=== PATIENT | female | born 1955 | race Caucasian/White ===

== ENCOUNTER 2022-08-01 08:45 | Outpatient (CLI) | payer MEDICARE, BC, SELFPAY ==
--- NOTE | 2022-08-01 11:16 | W.ANESCHARGE ---
Anesthesia Charges Start Date/Time Anesthesia Start Date: 08/01/22 Anesthesia Start Time: 10:25 Stop Date/Time Anesthesia Stop Date: 08/01/22 Anesthesia Stop Time: 11:15 Summary Emergency: No
--- NOTE | 2022-08-01 11:21 | W.ANESCHARGE ---
Anesthesia Charges Start Date/Time Anesthesia Start Date: 08/01/22 Anesthesia Start Time: 10:25 Stop Date/Time Anesthesia Stop Date: 08/01/22 Anesthesia Stop Time: 11:15 Summary Emergency: No
== END 2022-08-01 08:46 | disposition home or self-care (01) ==
LOC: OP CLINIC 08:47
PROVIDERS: PCP Internal Medicine; Visit Provider Surgery
DX: Z12.11 Encounter for screening for malignant neoplasm of colon (principal); K64.9 Unspecified hemorrhoids; Z83.71 Family history of colonic polyps
CPT/HCPCS: 00812; 45378; J2704

== ENCOUNTER 2022-08-19 08:57 | Outpatient (CLI) | payer MEDICARE, BC, SELFPAY ==
[2022-08-19 11:56] LABS: Cholesterol* 225 mg/dL (90-199); Glucose* 91 mg/dL (60-115); HDL Cholesterol* 83 mg/dL (>=50); LDL Cholesterol Calculated 125 mg/dL (<100); Triglycerides* 87 mg/dL (40-149)
[2022-08-19 12:12] LABS: Vitamin D 25 Hydroxy* 34 ng/mL (30-80)
== END 2022-08-19 08:58 | disposition home or self-care (01) ==
PROVIDERS: PCP Internal Medicine; Visit Provider Internal Medicine
DX: M85.80 Other specified disorders of bone density and structure, unspecified site (principal); E78.5 Hyperlipidemia, unspecified; E03.9 Hypothyroidism, unspecified
CPT/HCPCS: 80061; 82306; 82947; 84443

== ENCOUNTER 2022-09-11 13:54 | Outpatient (CLI) | payer MEDICARE, BC, SELFPAY ==
--- OUTSIDE RECORDS SUMMARY | 2022-09-11 13:58 | XMS_ITS | Encounter Summary ---
:1955 Author Organization [facility] Address [address] [place] [address] Care Team Providers Name Role Phone Elsewhere, Pcp Primary Care Provider Unavailable Reason for Visit Reason Comments Pre-visit Intake Encounter Details Date Type Department Care Team Description 06/28/2022 Clinical Communication Visit Review in Pr e-visit Intake [place], [place] [address] [place], [place] [id number] Social History Tobacco Use Types Packs/Day Years Used Date Smoking Tobacco: Never Smokeless Tobacco: Never Tobacco Cessation: Counseling Given: Not Answered Alcohol Habits Answer Date Recorded How often do you have a drink containing alcohol? 2-4 times a month 06/29/2022 How many drinks containing alcohol do you have on a 1 or 2 06/29/2022 typical day when you are drinking? How often do you have six or more drinks on one Never 06/29/2022 occasion? Social Isolation Answer Date Recorded In a typical week, how many times do you More than three abby es a week 06/29/2022 talk on the phone with family, friends, or neighbors? How often do you get together with friends Twice a week 06/29/2022 or relatives? How often do you attend latter day or More than 4 times per year 06/29/2022 catholic services? Do you belong to any clubs or Yes 06/29/2022 organizations such as latter day groups, unions, fraternal or athletic groups, or school groups? How often do you attend meetings of the More than 4 times pe r year 06/29/2022 clubs or organizations you belong to? Are you now , , , 06/29/2022 , never or living with a partner? Physical Activity Answer Date Recorded On average, how many days per week do you engage in moderate to 3 days 06/29/2022 strenuous exercise (like walking fast, running, jogging, dancing, swimming, biking, or other activities that cause a light or heavy sweat)? On average, how many minutes do you engage in exercise at is 30 min 06/29/2022 level? Stress Answer Date Recorded Do you feel stress - tense, restless, nervous, or anxious, N ot at all 06/29/2022 or unable to sleep at night because your mind is troubled all the time - these days? Financial Resource Strain Answer Date Recorded How hard is it for you to pay for the very basics like Not h yasmine at all 06/29/2022 food, housing, medical care, and heating? Intimate Partner Violence Answer Date Recorded Within the last year, have you been afraid of your partner o r No 06/29/2022 ex-partner? Within the last year, have you been humiliated or emotionall y No 06/29/2022 abused in other ways by your partner or ex-partner? Within the last year, have you been kicked, hit, slapped, or No 06/29/2022 otherwise physically hurt by your partner or ex-partner? Within the last year, have you been raped or forced to have any No 06/29/2022 kind of sexual activity by your partner or ex-partner? Food Insecurity Answer Date Recorded Within the past 12 months, you worried that your food would Never true 06/29/2022 run out before you got money to buy more. Within the past 12 months, the food you bought just didn't N ever true 06/29/2022 last and you didn't have money to get more. Transportation Needs Answer Date Recorded In the past 12 months, has lack of transportation kept you f rom No 06/29/2022 medical appointments or from getting medications? In the past 12 months, has lack of transportation kept you f rom No 06/29/2022 meetings, work, or getting things needed for daily living? Housing Stability Answer Date Recorded In the last 12 months, was there a time when you were not ab le No 06/29/2022 to pay the mortgage or rent on time? In the last 12 months, how many places have you lived? 1 06/29/2022 In the last 12 months, was there a time when you did not hav e a No 06/29/[address] or slept in a detention (including now)? Sex Assigned at Date Recorded Female 06/29/2022 11:48 AM CDT documented as of this encounter Plan of Treatment Not on filedocumented as of this encounter Visit Diagnoses Not on filedocumented in this encounter Care Teams Card Reader Relationship Specialty Start Date End Date Elsewhere, Pcp PCP - General Internal Medicine 06/28/22 documented as of this encounter
--- OUTSIDE RECORDS SUMMARY | 2022-09-11 13:58 | XMS_ITS | Encounter Summary ---
:1955 Author Organization [facility] Address [address] [place] [address] Care Team Providers Name Role Phone Elsewhere, Pcp Primary Care Provider Unavailable Encounter Details Date Type Department Care Team Description 07/03/2022 Orders Only Department [place] Kwame, M.S. [address] [facility] [address] [place] [address] [place], [place] [phone] (Wo rk) Social History Tobacco Use Types Packs/Day Years Used Date Smoking Tobacco: Never Smokeless Tobacco: Never Alcohol Habits Answer Date Recorded How often [...] or relatives? How often do you attend latter-day or More than 4 times per year 06/29/2022 sabianism services? Do you belong to any clubs or Yes 06/29/2022 organizations such as latter-day groups, unions, fraternal or athletic groups, or [...] minutes do you engage in exercise at th is 30 min 06/29/2022 level? Stress Answer [...] place to sleep or slept in a penitentiary (including now)? Education Answer Date Recorded What is the highest level of school Master's degree (e.g., Danica Candelario, , 06/29/2022 you have completed or the highest Renetta, Loli, VALVE AND REGULATOR REPAIRER, TICO) degree you have received? Sex Assigned at Date Recorded Female 06/29/2022 11:48 AM CDT documented as of this encounter Plan of Treatment Not on filedocumented as of this encounter Visit Diagnoses Not on filedocumented in this encounter Care Teams Child Development Instructor Relationship Specialty Start Date End Date Elsewhere, Pcp PCP - General Internal Medicine 06/28/22 documented as of this encounter
--- OUTSIDE RECORDS SUMMARY | 2022-09-11 13:58 | XMS_ITS | Encounter Summary ---
:1955 Author Organization [facility] Address [address] [place] [address] Care Team Providers Name Role Phone Elsewhere, Pcp Primary Care Provider Unavailable Encounter Details Date Type Department Care Team Description 07/03/2022 Ancillary Procedure Department of Dermatology Social History Tobacco Use Types Packs/Day Years [...] or relatives? How often do you attend buddhist or More than 4 times per year 06/29/2022 mormon services? Do you belong to any clubs or Yes 06/29/2022 organizations such as buddhist groups, unions, fraternal or athletic groups, or [...] place to sleep or slept in a custodial (including now)? Education Answer Date Recorded What is the highest level of school Master's degree (e.g., M A, MS, 06/29/2022 you have completed or the highest Renetta, MEd, EXPEDITIONARY FORCE COMBAT SKILLS, TICO) degree you have received? Sex Assigned at Date Recorded Female 06/29/2022 11:48 AM CDT documented as of this encounter Plan of Treatment Not on filedocumented as of this encounter Procedures Procedure Name Priority Date/Time Associated Comments Diagnosis DERMATOLOGY IMAGE Routine 07/03/2022 11:28 Result s for this EXAM AM CDT procedure are i n the results section. documented in this encounter Results Back, left 49 [id number] 229-Dermatology Image Exam (07/03/2022 11:28 AM CDT) Specimen (Source) Anatomical Collection Method Collection Time Re ceived Time Location / / Volume Laterality 07/03/2022 11:26 AM CDT Narrative IIMS - 07/03/2022 11:28 AM CDT This order has been created and auto-finalized to support the import of images acquired without order. The clini meghna documentation to support these images can be found on the encounter suzy t produced images. Provider Not In System IMG NON RAD IMAGING PROCEDUR ES Performing Organization Address City/State/ZIP Code Phon e Number IIMS IIMS NA documented in this encounter Visit Diagnoses Not on filedocumented in this encounter Care Teams Tankage Grinder Operator Relationship Specialty Start Date End Date Elsewhere, Pcp PCP - General Internal Medicine 06/28/22 documented as of this encounter
--- OUTSIDE RECORDS SUMMARY | 2022-09-11 13:58 | XMS_ITS | Encounter Summary ---
:1955 Author Organization [facility] Address [address] [place] [address] Care Team Providers Name Role Phone Unavailable Primary Care Provider Unavailable Encounter Details Date Type Department Care Team Description 06/26/2009 Hospital Encounter HX [facility] Cliff Padilla M.D. [address] [place], [place] [phone] (Wo rk) Social History Tobacco Use Types Packs/Day Years Used Date Smoking Tobacco: Never Assessed Alcohol Habits Answer Date Recorded How often [...] or relatives? How often do you attend religion or More than 4 times per year 06/29/2022 confucianism services? Do you belong to any clubs or Yes 06/29/2022 organizations such as religion groups, unions, fraternal or athletic groups, or [...] or slept in a custodial (including now)? Sex Assigned at Date Recorded Female 06/29/2022 11:48 AM CDT documented as of this encounter Plan of Treatment Not on filedocumented as of this encounter Visit Diagnoses Not on filedocumented in this encounter
--- OUTSIDE RECORDS SUMMARY | 2022-09-11 13:58 | XMS_ITS | Encounter Summary ---
:1955 Author Organization [facility] Address [address] [place] [address] Care Team Providers Name Role Phone Unavailable Primary Care Provider Unavailable Encounter Details Date Type Department Care Team Description 01/07/2022 [facility] M[facility] [address] [facility] [address] [place] [address] [place] [address] [phone] (Wo rk) Social History Tobacco Use Types [...] or relatives? How often do you attend temple or More than 4 times per year 06/29/2022 zoroastrian services? Do you belong to any clubs or Yes 06/29/2022 organizations such as temple groups, unions, fraternal or athletic groups, or [...] place to sleep or slept in a senior living (including now)? Sex Assigned at Date Recorded Female 06/29/2022 11:48 AM CDT documented as of this encounter Plan of Treatment Not on filedocumented as of this encounter Visit Diagnoses Not on filedocumented in this encounter
--- OUTSIDE RECORDS SUMMARY | 2022-09-11 13:58 | XMS_ITS | Clinical Summary ---
:1955 Author Organization [facility] Address [address] [place] [address] Care Team Providers Name Role Phone Elsewhere, Pcp Primary Care Provider Unavailable Source Comments Patient records contain information from all sites at [facility]. For routine questions regarding patient records, call [phone] during business hours, M-F 8:00 AM - 5:00 PM Central Time. Record requests for emergency care only can be directed to [phone] at any time.[facility] Allergies No known active allergies Medications Medication Sig Dispensed Refills Start Date End Date Status simvastatin (ZOCOR) Take 10 mg by mouth 0 04/30/2022 Active 10 mg tablet at bedtime. levothyroxine Take 100 mcg by 0 04/30/2022 Active (SYNTHROID, mouth daily. LEVOTHROID) 100 mcg tablet estradioL (VAGIFEM) INSERT ONE TABLET 0 04/30/2022 Active 10 mcg vaginal tablet VAGINALLY TWICE A WEEK erythromycin See Admin 0 06/11/2022 Active (ROMYCIN) 5 mg/gram Instructions. For (0.5 %) ophthalmic eyes. ointment buPROPion XL Take 300 mg by 0 04/30/2022 A ctive (WELLBUTRIN XL) 300 mouth daily. mg 24 hr tablet cholecalciferol, Take 25 mcg by 0 Active vitamin D3, mouth daily. (cholecalciferol) 25 Calcium and Vit D mcg (1,000 Unit) tablet tretinoin (RETIN-A) Apply 1 application 45 g 3 07/03/2022 Active 0.05 % topically at creamIndications: bedtime. Apply to Milia face every other night followed by moisturizer x 2 weeks then increase to nightly Encounters Date Type Specialty Care Team Description 07/09/2022 Clinical Pharmacy [facility] Prior Communication I. Authorization (PA DENIED - TRETIN OIN CREAM) 07/03/2022 Ancillary Procedure 07/03/2022 Office Visit Dermatology Veronica Bonner (Primary Dx); Lotus Pearson, Tumor Skin Unce bello Garay; Kwame, M.S. Keratosis Sebor rheic Inflamed 07/03/2022 Orders Only Dermatology Lotus Bonner M.D., M.S. 06/28/2022 Clinical Admitting/Central Pre-visit Intake Communication Scheduling from Last 3 Months Immunizations Name Administration Dates Next Due HepA Adult 01/03/2006 IPV 01/03/2006 Influenza, Unspecified 08/15/2004 Social History Tobacco Use Types Packs/Day Years [...] or relatives? How often do you attend yarsanism or More than 4 times per year 06/29/2022 latter-day services? Do you belong to any clubs or Yes 06/29/2022 organizations such as yarsanism groups, unions, fraternal or athletic groups, or [...] place to sleep or slept in a snf (including now)? Education Answer Date Recorded What is the highest level of school Master's degree (e.g., Danica Candelario MS, 06/29/2022 you have completed or the highest Renetta, MEd, SERVICE PROVIDER, TICO) degree you have received? Sex Assigned at Date Recorded Female 06/29/2022 11:48 AM CDT Plan of Treatment Health Maintenance Due Date Last Done Comments Bone Density Scan (Osteoporosis 1955 Screen) CT Colonography 1955 Cologuard 1955 Colonoscopy 1955 Colorectal Cancer Screening 1955 FIT 1955 Fasting Glucose for Diabetes 1955 Screening Hepatitis C Screening 1955 Mammogram 1955 Thyroid Stimulating Hormone (TSH) 1955 test for thyroid function Depression Screening (Annual 11/03/2021 PHQ-2) Fall Risk Screen (Annual) 11/03/2021 DTaP,Tdap,and Td Vaccines (2 - Td 11/20/2022 11/20/2012 or Tdap) Cervical Cancer Screening Discontinued 01/24/2021 Zoster Vaccines Completed 08/14/2021, 05/16/2021, 05/12/2013 Pneumococcal vaccine (65+ years) Completed 06/29/2022, COVID-19 Vaccine Completed 07/09/2022, 03/03/2022, 09/20/2021, Additional history exists Influenza Vaccine Completed 08/22/2022, 07/21/2021, 07/21/2020, Additional history exists Procedures Procedure Name Priority Date/Time Associated Comments Diagnosis DERMATOLOGY IMAGE EXAM Routine 07/03/2022 11:28 R esults for this AM CDT procedure are i n the results section. DERMATOPATHOLOGY Routine 07/03/2022 11:24 Results for this AM CDT procedure are i n the results section. from Last 3 Months Results Back, left 49 225 [id number] 229-Dermatology [...] Code Phon e Number IIMS IIMS NA Dermatopathology (07/03/2022 11:24 AM CDT) Component Value Ref Test Analysis Performed Pathologis t Range Method Time At Signature 07/10/2022 [facility] 2:44 PM CDT Participated in Gregorio Mars, 07/10/2022 [facility] the Kwame-Pathology 2:44 PM CDT Interpretation Fellow Report Gauir Yates 07/10/2022 [facility] electronically Kwame Martinez 2:44 PM CDT signed by Gross Description Received in formalin labeled with the patient's n binu, 07/10/2022 [facility] medical record number, and left lower paraspinal back is 2:44 PM CDT a 1.5 x 1.4 x 0.1 cm pale-escamilla, previously inked blue skin shave biopsy. ??There is a 0.8 x 0.5 x 0.2 cm pale [id number], verrucoid, raised, firm lesion with well-circumscribed borders eccentrically located on the skin surface. ??The specimen is serially sectioned submitted entirely in cassette A1. ??Grossed by JMARITO. Interpretation FINAL DIAGNOSIS 07/10/2022 PDR A. ??Left lower paraspinal back, Skin shave biopsy: 2:44 PM CDT Inflamed verrucal keratosis Specimen (Source) Anatomical Collection Method Collection Time Re ceived Time Location / / Volume Laterality Skin (Left lower 07/03/2022 11:24 paraspinal back) AM CDT Narrative This result has an attachment that is no t available. Lotus Bonner M.D., M.S. LAB PATH DERM ORDERABLES Performing Organization Address City/State/ZIP Code Phon e Number [facility] - [address] [place], [place] [address] [place] [address] Laboratories-[facility] [address] from Last 3 Months Insurance Payer Benefit Plan Subscriber ID Effective Phone Address Typ e / Group Dates MEDICARE MEDICARE A [id number] 2021-Pres [phone] [place] [address] BLUE CROSS BCBS JENA [id number] 2021-Pres [phone] [address] X Cost Share BLUE SHIELD BLUE COST ent [id number] [place] [address] Care Teams Quill Winder Relationship Specialty Start Date End Date Elsewhere, Pcp PCP - General Internal Medicine 06/28/22
--- OUTSIDE RECORDS SUMMARY | 2022-09-11 13:58 | XMS_ITS | Encounter Summary ---
:1955 Author Organization [facility] Address [address] [place] [address] Care Team Providers Name Role Phone Unavailable Primary Care Provider Unavailable Reason for Visit Appointment Request (Routine) - Closed Specialty Diagnoses / Procedures Referred By Contact Refer red To Contact Dermatology Diagnoses Screening Examination Skin Cancer Rehana Mariano M.D. [address] [place] [address] Referral ID Status Reason Start Date Expiration Date Visits Requ ested Visits Authorized [id number] Closed 01/07/2022 01/07/2023 1 1 Encounter Details Date Type Department Care Team Description 02/21/2022 Comprehensive Visit Department of Lotus Bonner Examination Skin Cancer (Primary Dx); Dermatology in Kwame Pearson, M.S. Angioma Waller; [place], [place] [address] [facility] Dermatoheliosis; [address] [place], [place] Photodamage; [place] [address] Keratosis Seborrheic Inflamed; [id number] Keratosis Seborrheic; Nevi Multiple Social History Tobacco Use Types Packs/Day Years [...] or relatives? How often do you attend orthodoxy or More than 4 times per year 06/29/2022 denominational services? Do you belong to any clubs or Yes 06/29/2022 organizations such as orthodoxy groups, unions, fraternal or athletic groups, or [...] place to sleep or slept in a jail (including now)? Sex Assigned at Date Recorded Female 06/29/2022 11:48 AM CDT documented as of this encounter Patient Instructions Patient InstructionsProLotus quintero M.D., M.S. - 02/21/2022 1:33 PM CDT SUNSCREEN RECOMMENDATIONS: 1. Use SPF 30 or greater sunscreen with broad-spectrum coverage, we recommend looking for zinc or titanium oxide in the ingredients 2. Reapply every 2 hours or after exiting the water. 3. Use a daily sunscreen which can often be found in a daily moisturizer or foundation. 4. A shot-glass amount of sunscreen is needed to attain proper coverage for one full-body application. 5. A broad brimmed hat and UPF clothing (ie: Coolibar) is a great way to protect your skin from the sun. Recommended products: Sunscreen brands for sensitive skin: - Vanicream - Neutrogena - Cetaphil - CeraVe Daily sunscreens, moisturizers, tinted sunscreens: - EltaMD UV Daily, EltaMD UV Clear (tinted UV clear) - Neutrogena UltraSheer or Neutrogena Clear Face - CeraVe AM Facial Moisturizing Lotion - Cetaphil daily moisturizer with sunscreen - Blue lizard - Tizo Tinted Face mineral sunscreen - Madison on Block (found on Amazon) documented in this encounter Consult Notes Lotus Bonner M.D., M.S. - 02/21/2022 1:20 PM CDT Correspondence to Dr. Bonner REFERRAL Rehana Mariano M.D. CHIEF COMPLAINT / REASON FOR VISIT Multiple concerns, skin cancer screening examination HISTORY OF PRESENT ILLNESS Ms. Leeann Weir is a 66 y.o. female who presents today for a skin cancer screening examination. No personal history of skin cancer. Of note, her mom and dad have an extensive history of nonmelanoma skin cancer and multiple Mohs treatments. She has several other cosmetic concerns she would like me to evaluate today including milia on the forehead, excess hair in the inner medial thighs, and sunscreen recommendations. She denies any new, tender, bleeding, growing lesions. She is very diligent about photoprotection. No other specific concerns. PAST MEDICAL HISTORY Reviewed. SOCIAL HISTORY Retired. Previously worked in physical therapy. Here with her today FAMILY HISTORY No family history on file. PHYSICAL EXAM General: Awake, alert, in no acute distress, and with appropriate affect. Skin: I have examined the scalp, face, neck, chest, abdomen, back, bilateral upper extremities, and bilateral lower extremities, and buttocks. Desir 1. Small milia across the forehead and lateraleyebrows. Dark brown hair involving the medial thighs. Small callus on the left plantar foot. Irritated seborrheic keratosis on the left back, right chest, right arm. Mild dermatoheliosis in sun exposed areas. Primarily over the trunk and also on the extremities, there are scattered small brown round macules and papules; many of these are examined dermoscopically and reveal regular symmetric network and appear consistent with banal-appearing nevi. Scattered waxy stuck brown-hall papules and plaques c onsistent with seborrheic keratoses. Over the trunk, there are a few bright red dome shaped papules consistent with waller angiomas. No other concerning lesions. ASSESSMENT / PLAN #1 Skin cancer screening examination #2 Dermatoheliosis Sun protection, sun avoidance, the warning signs and symptoms of skin cancer, and the proper use of sunscreens were reviewed with the patient. Recommend daily use of SPF30+ broad spectrum sunscreen. #3 Banal-appearing nevi I recommend continued sun protection, self-skin examinations, and observation. Should any of the patient's nevi change in size, color, texture, or shape or develop symptoms such as itching or bleeding,I recommend an immediate return visit for reassessment. #4 Inflamed seborrheic keratoses The benign nature of this lesion(s) was discussed with the patient. Given the inflamed nature of this lesion(s), its treatment is medically indicated. We treated a total of x3 lesion(s) with one 20-second freeze-thaw cycle of liquid nitrogen cryotherapy. The patient tolerated the procedure well. Aftercare instructions were provided in written and verbal form to the patient. Should any of these lesions recur, the patient should return for further evaluation. #5 Seborrheic keratoses #6 Waller angiomas #7 Milia #8 Mild hypertrichosis, inner medial thighs The benign nature of the skin lesion(s) was discussed with the patient. We did discuss options of treatment of the milia with comedone extractor and laser treatment options for the hypertrichosis. The patient is not interested in treatment today. She will portal message me should she like this in the future. I recommend continued observation. Should symptoms or changes develop related to this condition, I would recommend a return visit for reassessment. No orders of the defined types were placed in this encounter. All questions answered. INFORMED CONSENT Discussed the risks, benefits, alternatives, and the necessity of other members of the healthcare team participating in the procedure. All questions answered and consent given. PATIENT EDUCATION Ready to learn. No apparent learning barriers were identified. Learning preferences include listening. Explained diagnosis and treatment plan; patient/guardian of patient expressed understanding of thecontent. Associated attestation - Madhav Lloyd M.D. - 02/21/2022 2:20 PM CDT I saw and evaluated the patient, participating in the wall portions of the service. I reviewed the resident???s note. I agree with the resident???s findings and plan. I was present for the critical portion and immediately available for the entire procedure. Madhav Lloyd M.D. documented in this encounter Plan of Treatment Not on filedocumented as of this encounter Visit Diagnoses Diagnosis Screening Examination Skin Cancer - Prim agustin Angioma Waller Dermatoheliosis Photodamage Keratosis Seborrheic Inflamed Keratosis Seborrheic Nevi Multiple documented in this encounter
--- OUTSIDE RECORDS SUMMARY | 2022-09-11 13:58 | XMS_ITS | Clinical Summary ---
:1955 Author Organization [facility] [place] [address] Care Team Providers Name Role Phone Rehana Mariano MD Primary Care Provider Allergies No known active allergies Medications Medication Sig Dispensed Refills Start Date End Date Status PROTONIX 40 MG TAB take 1 tablet 0 06/11/2008 Active (40 mg) by oral route once daily LEVOTHYROXINE 150 MCG take 1 tablet 0 06/11/2008 Active TAB (150 mcg) by oral route once daily WELLBUTRIN SR 150 MG TAB 0 06/11/2008 Active Active Problems Problem Noted Date Screen for colon cancer 03/20/2012 Overview: Colonoscopy 03/2012 normal repeat in 10 y ears Social History Tobacco Use Types Packs/Day Years Used Date Never Smoker Tobacco Cessation: Counseling Given: Yes Alcohol Use Standard Drinks/Week Comments Yes 0 (1 standard drink = 0.6 oz pure alcoho l) occasoinal Sex Assigned at Date Recorded Not on file Obstetrics History Last Filed Vital Signs Vital Sign Reading Time Taken Comments Blood Pressure 142/85 03/18/2016 2:58 PM CDT Pulse 80 03/18/2016 2:58 PM CDT Temperature 37.6 ??C (99.6 ??F) 03/18/2016 2:58 PM CDT Respiratory Rate - - Oxygen Saturation 99% 03/18/2016 2:58 PM CDT Inhaled Oxygen Concentration - - Weight 72.1 kg (159 lb) 03/18/2016 2:58 PM CDT Height - - Body Mass Index - - Plan of Treatment Upcoming Encounters Date Type Specialty Care Team Description 09/18/2022 Orders Only Health Maintenance Due Date Last Done Comments COVID-19 vaccine series (#1) 1955 Tdap 1967 Depression screening for age 12+ 1968 BMI (ht and wt on same day) for age 18+ 1974 Hepatitis C screening for age 18-79 1974 Tetanus booster 1976 Lipids for age 45-75 2001 Zoster (shingles) series for age 50+ (1 of 2006 2) Mammogram for age 45-75 07/03/2008 07/03/2007 DEXA/DXA scan for age 65+ 2021 Pneumococcal series for age 65+ (1 - PCV) 2021 Colonoscopy through age 75 03/20/2022 03/20/2012, 2 Influenza for age 65+ 07/04/2022 Results Not on filefrom Last 3 Months Insurance Payer Benefit Plan / Subscriber ID Effective Dates Phone Addre ss Type Group BLUE CROSS BLUE CROSS OF [id number] 2015-Present [address] [place] [address] Care Teams Clinical Care Coordinator Relationship Specialty Start Date End Date Rehana Mariano MD PCP - General Internal Medicine 03/12/161999 [place] [address]
--- OUTSIDE RECORDS SUMMARY | 2022-09-11 13:58 | XMS_ITS | Encounter Summary ---
:1955 Author Organization [facility] Address [address] [place] [address] Care Team Providers Name Role Phone Elsewhere, Pcp Primary Care Provider Unavailable Reason for Referral Medication Prior Authorization - Closed Specialty Diagnoses / Procedures Referred By Contact Refer red To Contact Diagnoses Lotus Palacios M.D., M.S. [address] [place] [address] Referral ID Status Reason Start Date Expiration Date Visits Requ ested Visits Authorized [id number] Closed 1 1 Reason for Visit Appointment Request (Routine) - Closed Specialty Diagnoses / Procedures Referred By Contact Refer elder To Contact Dermatology Diagnoses Keratosis [facility]inic Veronica Referral ID Status Reason Start Date Expiration Date Visits Requ ested Visits Authorized [id number] Closed 04/23/2022 04/23/2023 1 Encounter Details Date Type Department Care Team Description 07/03/2022 Office Visit Department of Lotus Bonner (Prim agustin Dx); Dermatology franky Pearson M.D., M.S. Tumor Skin Uncertain Behavior; [place], [place] [address] [facility] Keratosis Seborrheic Inflamed [address] [place] [phone] Social History Tobacco Use Types Packs/Day Years [...] or relatives? How often do you attend evangelical or More than 4 times per year 06/29/2022 roman catholic services? Do you belong to any clubs or Yes 06/29/2022 organizations such as evangelical groups, unions, fraternal or athletic groups, or [...] place to sleep or slept in a fci (including now)? Education Answer Date Recorded What is the highest level of school Master's degree (e.g., M A, MS, 06/29/2022 you have completed or the highest Renetta, MEd, MANAGER PERFORMANCE, TICO) degree you have received? Sex Assigned at Date Recorded Female 06/29/2022 11:48 AM CDT documented as of this encounter Progress Notes Lotus Bonner M.D., M.S. - 07/03/2022 11:20 AM CDT Correspondence to: Dr. Lotus Bonner Supervising insurance consultant, Dr. Lloyd, was immediately available, but consultation was not required. REFERRAL No ref. provider found CHIEF COMPLAINT / REASON FOR VISIT Multiple concerns HISTORY OF PRESENT ILLNESS Ms. Leeann Weir is a 67 y.o. female who presents today for a skin cancer screening examination. She has previously seen in Dermatology Clinic on 02/21/2022 with a benign examination. She has several cosmetic concerns today. She has several additional irritated keratoses she would like treated on the left shoulder, left lumbar back, and right lateral thigh. She also has several milia she would like treated today. She asked about other topical creams to assist with reduction of milia formation. The patient denies any other new or changing lesions. No other specific concerns. PHYSICAL EXAM General: Awake, alert, in no acute distress, and with appropriate affect. Skin: I have examined the face, neck, leg, back, shoulder. Desir 2. Involving the left shoulder, left lumbar back, right thigh are several irritated keratoses (cryotherapy x2). They larger irritated keratosis on the left lumbar paraspinal back as an atypical appearance and is partially she. (Shave biopsy). Several milia on the forehead and left lower cutaneous eyelid (extracted). No other concerning features. ASSESSMENT / PLAN #1 Milia We discussed this diagnosis and natural history. I extracted 3 discrete lesions on the forehead and left lower cutaneous eyelid today with comedone extractor after cleansing with alcohol wipe. The patient tolerated this procedure well without complications. To prevent further milia formation and reduce overall dyspigmentation and prevent further photo damage, we will start using tretinoin 0.05% creamevery other night x2 weeks followed by moisturizer then increase to nightly. Risks and benefits of this medication reviewed with the patient. new prescription as below. #2 Skin tumor of uncertain behavior, left lumbar paraspinal back, query irritated keratosis CONSENT Discussed the risks, benefits, alternatives, and the necessity of other members of the healthcare team participating in the procedure. All questions answered and consent given. UNIVERSAL PROTOCOL Procedural pause conducted to verify: correct patient identity, procedure to be performed, and as applicable, correct side and site, correct patient position, and availability of implants, special equipment, or special requirements. PROCEDURE INFORMATION Shave biopsy. We explained the potential diagnosis and recommended that we obtain a biopsy. The risks and benefitsof the procedure were discussed, and the patient consented to these procedures. Using 1% lidocaine with epinephrine for local anesthesia, a shave biopsy was obtained from the left lower paraspinal back. Biopsy submitted to Dermatopathology for H&E. Special stains will be performed as indicated. The bleeding was well controlled with application of aluminum chloride. Dressing was applied, and woundcare instructions were explained. Biopsy results and any further recommendations will be communicated to the patient by letter. Patient given pamphlet [id number]. #3 Inflamed seborrheic keratoses The benign nature of this lesion(s) was discussed with the patient. Given the inflamed nature of this lesion(s), its treatment is medically indicated. We treated a total of xx2 lesion(s) with one 20-second freeze-thaw cycle of liquid nitrogen cryotherapy. The patient tolerated the procedure well. Aftercare instructions were provided in written and verbal form to the patient. Should any of these lesions recur, the patient should return for further evaluation. Orders Placed This Encounter tretinoin (RETIN-A) 0.05 % cream Sig: Apply 1 application topically at bedtime. Apply to face every other night followed by moisturizer x 2 weeks then increase to nightly Dispense: 45 g Refill: 3 All questions answered. INFORMED CONSENT Discussed the risks, benefits, alternatives, and the necessity of other members of the healthcare team participating in the procedure. All questions answered and consent given. PATIENT EDUCATION Ready to learn. No apparent learning barriers were identified. Learning preferences include listening. Explained diagnosis and treatment plan; patient/guardian of patient expressed understanding of thecontent. Penny Knott L.P.N. - 07/03/2022 11:20 AM CDT Shave biopsy on the Left lower paraspinal back was performed as ordered and outlined by Lotus Bonner M.D., M.S. in the clinical note dated with today's date. documented in this encounter Plan of Treatment Not on filedocumented as of this encounter Procedures Procedure Name Priority Date/Time Associated Diagnosis Comme nts DERMATOPATHOLOGY Routine 07/03/2022 11:24 AM Resu lts for this CDT procedure are i n the results section. documented in this encounter Results Dermatopathology (07/03/2022 11:24 AM CDT) Component Value Ref Test Analysis Performed Pathologis t Range Method Time At Signature 07/10/2022 PDRM 2:44 PM CDT Participated in Gregorio Mars, 07/10/2022 [facility] the [facility] 2:44 PM CDT Interpretation Fellow Report Gauri Yates 07/10/2022 [facility] electronically Kwame Martinez 2:44 PM CDT signed by Gross Description Received in formalin labeled with the patient's n binu, 07/10/2022 PDR medical record number, and left lower paraspinal back is 2:44 PM CDT a 1.5 x 1.4 x 0.1 cm pale-escamilla, previously inked blue skin shave biopsy. ??There is a 0.8 x 0.5 x 0.2 cm pale [id number], verrucoid, raised, firm lesion with well-circumscribed borders eccentrically located on the skin surface. ??The specimen is serially sectioned submitted entirely in cassette A1. ??Grossed by ROXANN. Interpretation FINAL DIAGNOSIS 07/10/2022 PDR A. ??Left [...] Organization Address City/State/ZIP Code Phon e Number [facility] - [address] [place], [place] [address] [place] [address] [facility] [address] documented in this encounter Visit Diagnoses Diagnosis Milia - Primary Tumor Skin Uncertain Behavior Keratosis Seborrheic Inflamed documented in this encounter Care Teams Logging Specialist Relationship Specialty Start Date End Date Elsewhere, Pcp PCP - General Internal Medicine 06/28/22 documented as of this encounter
--- OUTSIDE RECORDS SUMMARY | 2022-09-11 13:58 | XMS_ITS | Encounter Summary ---
:1955 Author Organization [facility] Address [address] [place] [address] Care Team Providers Name Role Phone Elsewhere, Pcp Primary Care Provider Unavailable Reason for Visit Reason Comments Rx Prior Authorization FROY DENIED - TRETINOIN CREAM Encounter Details Date Type Department Care Team Description 07/09/2022 Clinical Communication Pharmacy Prior Chani Gabriel Rx Prior RO I. Authorization (FROY [id number] DENIED - TRETIN OIN (Work) CREAM) Social History Tobacco Use Types Packs/Day Years [...] or relatives? How often do you attend confucianist or More than 4 times per year 06/29/2022 hindu services? Do you belong to any clubs or Yes 06/29/2022 organizations such as confucianist groups, unions, fraternal or athletic groups, or [...] place to sleep or slept in a [place] facility (including now)? Education Answer Date Recorded What is the highest level of school Master's degree (e.g., M A, MS, 06/29/2022 you have completed or the highest Renetta, MEd, DEHYDRATOR OPERATOR, TICO) degree you have received? Sex Assigned at Date Recorded Female 06/29/2022 11:48 AM CDT documented as of this encounter Miscellaneous Notes Telephone Encounter - Jaimie Howard I. - 07/09/2022 1:25 PM CDT Images from the original note were not included. The patient's health insurer has denied prior authorization for TRETINOIN CREAM. A quick view of the denial reason is in this communication message. To view the denial letter: Go to Snapshot Go to the purple Medications box Click on the blue Prior Authorizations link Under Denied, click on the blue medication link to open and view the attachment. As the prescriber, your options are: Appeal the decision to the insurer directly (see denial letter for how to appeal). Write a new Rx for an alternative medication therapy. Release the Rx to the pharmacy so the patient can pay out of pocket if they desire. To Release Rx: Open this encounter, go to Meds & Orders, click on the medication, and click the blue ???Release Rx?? button. PLEASE NOTE: If the ???Release Rx?? button is not visible, the Rx has already been released to the pharmacy. If you have questions, please reply via QuickNote to Any KUMAR. Thank you, The OPPA Team documented in this encounter Plan of Treatment Not on filedocumented as of this encounter Visit Diagnoses Not on filedocumented in this encounter Care Teams Masonry Inspector Relationship Specialty Start Date End Date Elsewhere, Pcp PCP - General Internal Medicine 06/28/22 documented as of this encounter
--- OUTSIDE RECORDS SUMMARY | 2022-09-11 13:58 | XMS_ITS | Encounter Summary ---
:1955 Author Organization [facility] Address [address] [place] [address] Care Team Providers Name Role Phone Unavailable Primary Care Provider Unavailable Encounter Details Date Type Department Care Team Description 05/08/2009 Hospital Encounter [facility]X [facility] Cliff Padilla M.D. [address] [place], [place] [phone] (Wo rk) Social History [...] or relatives? How often do you attend jehovah's witness or More than 4 times per year 06/29/2022 muslim services? Do you belong to any clubs or Yes 06/29/2022 organizations such as jehovah's witness groups, unions, fraternal or athletic groups, or [...] to sleep or slept in a senior care (including now)? Sex Assigned at Date Recorded Female 06/29/2022 11:48 AM CDT documented as of this encounter Plan of Treatment Not on filedocumented as of this encounter Visit Diagnoses Not on filedocumented in this encounter
[2022-09-11 16:18] LABS: Albumin* 4.4 g/dL (3.3-5.0); Chloride* 104 mmol/L (96-114); Sodium* 139 mmol/L (135-149)
[2022-09-11 16:19] LABS: Potassium* 4.6 mmol/L (3.6-5.1)
[2022-09-11 16:21] LABS: Alanine Aminotransferase* 20 U/L (4-35); Alkaline Phosphatase* 68 U/L (40-150); Aspartate Amino Transferase* 25 U/L (12-35); Bilirubin Total* 0.3 mg/dL (0.1-1.5); Blood Urea Nitrogen* 16 mg/dL (7-30); Carbon Dioxide* 26 mmol/L (20-32); Creatinine* 0.7 mg/dL (0.5-1.5); Estimated Glomerular Filt Rate 95 ml/min; Glucose* 80 mg/dL (60-115); Total Protein* 6.8 g/dL (6.0-8.3)
[2022-09-11 16:22] LABS: Calcium* 9.4 mg/dL (8.4-10.6)
== END 2022-09-11 13:55 | disposition home or self-care (01) ==
PROVIDERS: PCP Internal Medicine; Visit Provider Family Medicine
DX: R52 Pain, unspecified (principal); R10.9 Unspecified abdominal pain
CPT/HCPCS: 80053; 87086

== ENCOUNTER 2022-09-17 16:02 | Outpatient (CLI) | payer MEDICARE, BC, SELFPAY ==
--- OUTSIDE RECORDS SUMMARY | 2022-09-17 16:08 | XMS_ITS | Encounter Summary ---
:1955 Author Organization [facility] Address [address] [place] [address] Care Team Providers Name Role Phone Unavailable Primary Care Provider Unavailable Encounter Details Date Type Department Care Team Description 06/26/2009 Hospital Encounter [facility]X [facility] Cliff Padilla M.D. [address] [place], [place] [phone] (Wo rk) Social History [...] More than 4 times per year 06/29/2022 religion services? Do you belong to any clubs [...] place to sleep or slept in a halfway (including now)? Sex Assigned at Date Recorded Female 06/29/2022 11:48 AM CDT documented as of this encounter Plan of Treatment Not on filedocumented as of this encounter Visit Diagnoses Not on filedocumented in this encounter
--- OUTSIDE RECORDS SUMMARY | 2022-09-17 16:08 | XMS_ITS | Encounter Summary ---
:1955 Author Organization [facility] Address [address] [place] [address] Care Team Providers Name Role Phone Elsewhere, Pcp Primary Care Provider Unavailable Reason for Referral Medication Prior Authorization - Closed Specialty Diagnoses / Procedures Referred By Contact Refer red To Contact Diagnoses Lotus Palacios M.D., M.S. [address] [place] [address] Referral ID Status Reason Start Date Expiration Date Visits Requ ested Visits Authorized [id number] Closed 1 1 Reason for Visit Appointment Request (Routine) - Closed Specialty Diagnoses / Procedures Referred By Contact Refer elder To Contact Dermatology Diagnoses Keratosis [facility]inic Veronica Referral ID Status Reason Start Date Expiration Date Visits Requ ested Visits Authorized [id number] Closed 04/23/2022 04/23/2023 1 Encounter Details Date Type Department Care Team Description 07/03/2022 Office Visit Department of Lotus Bonner (Prim agustin Dx); Dermatology franky Pearson M.D., M.S. Tumor Skin Uncertain Behavior; [place], [place] [address] [facility] Keratosis Seborrheic Inflamed [address] [place] [phone] Social History Tobacco Use Types Packs/Day Years [...] More than 4 times per year 06/29/2022 methodist services? Do you belong to any clubs [...] place to sleep or slept in a assisted (including now)? Education Answer Date Recorded What is the highest level of school Master's degree (e.g., M A, MS, 06/29/2022 you have completed or the highest Renetta, MEd, MACHINE INSTALLER, TICO) degree you have received? Sex Assigned at Date Recorded Female 06/29/2022 11:48 AM CDT documented as of this encounter Progress Notes Lotus Bonner M.D., M.S. - 07/03/2022 11:20 AM CDT Correspondence to: Dr. Lotus Bonner Supervising business development consultant, Dr. Lloyd, was immediately available, but [...] the patient by letter. Patient given pamphlet [id number]. #3 Inflamed seborrheic keratoses The benign nature [...] PM CDT Participated in Gregorio Mars, 07/10/2022 [facility] the [facility]ology 2:44 PM CDT Interpretation [...] 0.8 x 0.5 x 0.2 cm pale [id number], verrucoid, raised, firm lesion with well-circumscribed borders [...] Organization Address City/State/ZIP Code Phon e Number [facility] - [address] [place], [place] [address] [place] [address] [facility] [address] documented in this encounter Visit Diagnoses Diagnosis Milia - Primary Tumor Skin Uncertain Behavior Keratosis Seborrheic Inflamed documented in this encounter Care Teams Radio Program Checker Relationship Specialty Start Date End Date Elsewhere, Pcp PCP - General Internal Medicine 06/28/22 documented as of this encounter
--- OUTSIDE RECORDS SUMMARY | 2022-09-17 16:08 | XMS_ITS | Clinical Summary ---
:1955 Author Organization [facility] Address [address] [place] [address] Care Team Providers Name Role Phone Elsewhere, Pcp Primary Care Provider Unavailable Source Comments Patient records contain information from all sites at [facility]. For routine questions regarding patient records, call [phone] during business hours, M-F 8:00 AM - 5:00 PM Central Time. Record requests for emergency care only can be directed to [phone] at any time.[facility] Allergies No known active allergies Medications Medication [...] or relatives? How often do you attend catholic or More than 4 times per year 06/29/2022 cheondoism services? Do you belong to any clubs or Yes 06/29/2022 organizations such as catholic groups, unions, fraternal or athletic groups, or [...] place to sleep or slept in a prison (including now)? Education Answer Date Recorded What is the highest level of school Master's degree (e.g., Danica Candelario MS, 06/29/2022 you have completed or the highest Renetta, MEd, FLATBED TRUCK DRIVER, TICO) degree you have received? Sex Assigned [...] t Range Method Time At Signature 07/10/2022 [facility] 2:44 PM CDT Participated in Gregorio Mars, 07/10/2022 [facility] the [facility] 2:44 PM CDT Interpretation Fellow Report Gauri Yates 07/10/2022 [facility] electronically Kwame Martinez 2:44 PM CDT signed by Gross Description Received in formalin labeled with the patient's n binu, 07/10/2022 [facility] medical record number, and left lower paraspinal back is 2:44 PM CDT a 1.5 x 1.4 x 0.1 cm pale-escamilla, previously inked blue skin shave biopsy. ??There is a 0.8 x 0.5 x 0.2 cm pale abp-[id number]-[id number], verrucoid, raised, firm lesion with well-circumscribed borders [...] Organization Address City/State/ZIP Code Phon e Number [facility] - [address] [place], [place] [address] [place] [address] [facility] [address] from Last 3 Months Insurance Payer Benefit Plan Subscriber ID Effective Phone Address Typ e / Group Dates MEDICARE MEDICARE A [id number] 2021-Pres [address] [place] [address] BLUE CROSS BCBS KASHIA [id number] 2021-Pres [phone] [address] X Cost Share BLUE SHIELD BLUE COST ent [phone] [place] [address] Care Teams Critical Care Nurse Specialist Relationship Specialty Start Date End Date Elsewhere, Pcp PCP - General Internal Medicine 06/28/22
--- OUTSIDE RECORDS SUMMARY | 2022-09-17 16:08 | XMS_ITS | Encounter Summary ---
:1955 Author Organization [facility] Address [address] [place] [address] Care Team Providers Name Role Phone Elsewhere, Pcp Primary Care Provider Unavailable Encounter Details Date Type Department Care Team Description 07/03/2022 Orders Only Department of D[place]ology [place] Kwame, M.S. [address] [facility] [address] [place] [address] [place], [place] [phone] (Wo rk) Social History Tobacco Use Types [...] or relatives? How often do you attend episcopalian or More than 4 times per year 06/29/2022 cheondoism services? Do you belong to any clubs or Yes 06/29/2022 organizations such as episcopalian groups, unions, fraternal or athletic groups, or [...] place to sleep or slept in a care home (including now)? Education Answer Date Recorded What is the highest level of school Master's degree (e.g., Danica Candelario, , 06/29/2022 you have completed or the highest Renetta, Loli, TRAWL NET MAKER, TICO) degree you have received? Sex Assigned at Date Recorded Female 06/29/2022 11:48 AM CDT documented as of this encounter Plan of Treatment Not on filedocumented as of this encounter Visit Diagnoses Not on filedocumented in this encounter Care Teams Personalized Living Manager Relationship Specialty Start Date End Date Elsewhere, Pcp PCP - General Internal Medicine 06/28/22 documented as of this encounter
--- OUTSIDE RECORDS SUMMARY | 2022-09-17 16:08 | XMS_ITS | Encounter Summary ---
:1955 Author Organization [facility] Address [address] [place] [address] Care Team Providers Name Role Phone Unavailable Primary Care Provider Unavailable Reason for Visit Appointment Request (Routine) - Closed Specialty Diagnoses / Procedures Referred By Contact Refer red To Contact Dermatology Diagnoses Screening Examination Skin Cancer Rehana Mariano M.D. [address] [place] [address] Referral ID Status Reason Start Date Expiration Date Visits Requ ested Visits Authorized [id number] Closed 01/07/2022 01/07/2023 1 1 Encounter Details Date Type Department Care Team Description 02/21/2022 Comprehensive Visit Department of Lotus Bonner Examination Skin Cancer (Primary Dx); Dermatology in Kwame Pearson, M.S. Angioma Waller; [place], [place] [address] [facility] Dermatoheliosis; [address] [place], [place] Photodamage; [place] [address] Keratosis Seborrheic Inflamed; [phone] Keratosis Seborrheic; Nevi Multiple Social History Tobacco [...] or relatives? How often do you attend buddhism or More than 4 times per year 06/29/2022 nondenominational services? Do you belong to any clubs or Yes 06/29/2022 organizations such as buddhism groups, unions, fraternal or athletic groups, or [...] place to sleep or slept in a correction (including now)? Sex Assigned at Date Recorded [...] - Tizo Tinted Face mineral sunscreen - Magdalena on Block (found on [employer]) documented in [...]
--- OUTSIDE RECORDS SUMMARY | 2022-09-17 16:08 | XMS_ITS | Clinical Summary ---
:1955 Author Organization [facility] [place] [address] Care Team Providers Name Role Phone Rehana [...] Type Group BLUE CROSS BLUE CROSS OF [id number] 2015-Present [id number] [facility] [place] [address] Care Teams Director Of Medical Staff Services Relationship Specialty Start Date End Date Rehana Mariano MD PCP - General Internal Medicine 03/12/161999 [place] [address]
--- OUTSIDE RECORDS SUMMARY | 2022-09-17 16:08 | XMS_ITS | Encounter Summary ---
:1955 Author Organization [facility] Address [address] [place] [address] Care Team Providers Name Role Phone Elsewhere, [...] or relatives? How often do you attend pentecostal or More than 4 times per year 06/29/2022 restorationist services? Do you belong to any clubs or Yes 06/29/2022 organizations such as pentecostal groups, unions, fraternal or athletic groups, or [...] have completed or the highest Renetta, MEd, SCALING MACHINE OPERATOR, TICO) degree you have received? Sex [...] on filedocumented in this encounter Care Teams Preboarder Relationship Specialty Start Date End Date Elsewhere, Pcp PCP - General Internal Medicine 06/28/22 documented as of this encounter
--- OUTSIDE RECORDS SUMMARY | 2022-09-17 16:08 | XMS_ITS | Encounter Summary ---
:1955 Author Organization [facility] Address [address] [place] [address] Care Team Providers Name Role Phone Elsewhere, Pcp Primary Care Provider Unavailable Reason for Visit Reason Comments Rx Prior Authorization FROY DENIED - TRETINOIN CREAM Encounter Details Date Type Department Care Team Description 07/09/2022 Clinical Communication Pharmacy Prior Chani Gabriel Rx Prior RO I. Authorization (FROY [id number] DENIED - TRETIN OIN (Work) CREAM) Social [...] or relatives? How often do you attend mandaeism or More than 4 times per year 06/29/2022 mosque services? Do you belong to any clubs or Yes 06/29/2022 organizations such as mandaeism groups, unions, fraternal or athletic groups, or [...] or slept in a detention (including now)? Education Answer Date Recorded What is the highest level of school Master's degree (e.g., M A, MS, 06/29/2022 you have completed or the highest Renetta, MEd, MANAGEMENT ANALYST, TICO) degree you have received? Sex Assigned [...] on filedocumented in this encounter Care Teams Laminator Hand Relationship Specialty Start Date End Date Elsewhere, Pcp PCP - General Internal Medicine 06/28/22 documented as of this encounter
--- OUTSIDE RECORDS SUMMARY | 2022-09-17 16:08 | XMS_ITS | Encounter Summary ---
:1955 Author Organization [facility] Address [address] [place] [address] Care Team Providers Name Role Phone Elsewhere, Pcp Primary Care Provider Unavailable Reason for Visit Reason Comments Pre-visit Intake Encounter Details Date Type Department Care Team Description 06/28/2022 Clinical Communication Visit Review in Pr e-visit Intake [place], [place] [address] [place], [place] [id number] Social History Tobacco Use Types Packs/Day Years [...] or relatives? How often do you attend muslim or More than 4 times per year 06/29/2022 church services? Do you belong to any clubs or Yes 06/29/2022 organizations such as muslim groups, unions, fraternal or athletic groups, or [...] place to sleep or slept in a group home (including now)? Sex Assigned at Date Recorded Female 06/29/2022 11:48 AM CDT documented as of this encounter Plan of Treatment Not on filedocumented as of this encounter Visit Diagnoses Not on filedocumented in this encounter Care Teams Brass Finisher Relationship Specialty Start Date End Date Elsewhere, Pcp PCP - General Internal Medicine 06/28/22 documented as of this encounter
--- NOTE | 2022-09-17 16:15 | CRLHL7_ITS ---
For Patients: As a result of the Century Cures Act, medical imaging exams and procedure reports are released immediately into your electronic medical record. You may view this report before your referring provider. If you have questions, please contact your health care provider. BILATERAL SCREENING MAMMOGRAM WITH COMPUTER-AIDED DETECTION AND TOMOSYNTHESIS TECHNIQUE: CC and MLO views were obtained. These mammographic images have been obtained using full-field digital technique. These mammographic images were interpreted with the benefit of computer-aided detection. Breast Tomosynthesis was used in this interpretation. COMPARISON FILM: 09/04/21, 08/25/20, 12/22/18. FINDINGS: The breasts are heterogeneously dense, which may obscure small masses IMPRESSION: There is no radiographic evidence for malignancy. ASSESSMENT: BI-RADS Category 1: Negative RECOMMENDATION: Routine screening mammogram in 1 year. A lay language report of this examination will be provided to the patient. Madhav Pop M.D. Diagnostic Radiologist [email or web address] ANDREW/[email or web address] Transcribed: 7:51 p.m. AURORA/Dictated by: Madhav Pop MD @ 09/18/2022 10:23:00 AM (Electronically Signed)
== END 2022-09-17 16:03 | disposition home or self-care (01) ==
LOC: MAMMO 16:03
PROVIDERS: PCP Internal Medicine; Visit Provider Obstetrics & Gynecology
DX: Z12.31 Encounter for screening mammogram for malignant neoplasm of breast (principal); R92.2 Inconclusive mammogram
CPT/HCPCS: 77063; 77067

== ENCOUNTER 2022-09-18 12:52 | Outpatient (CLI) | payer MEDICARE, BC, SELFPAY ==
--- OUTSIDE RECORDS SUMMARY | 2022-09-18 12:55 | XMS_ITS | Encounter Summary ---
:1955 Author Organization [facility] Address [address] [place] [address] Care Team Providers Name Role Phone Unavailable Primary Care Provider Unavailable Encounter Details Date Type Department Care Team Description 01/07/2022 Community [facility] AND Luz Maria Mariano [facility] M.D. [address] [facility] [address] [place] [address] [place] [address] [phone] (Wo rk) Social History Tobacco Use Types [...] or relatives? How often do you attend religious or More than 4 times per year 06/29/2022 mu-ism services? Do you belong to any clubs or Yes 06/29/2022 organizations such as religious groups, unions, fraternal or athletic groups, or [...] place to sleep or slept in a alf (including now)? Sex Assigned at Date Recorded Female 06/29/2022 11:48 AM CDT documented as of this encounter Plan of Treatment Not on filedocumented as of this encounter Visit Diagnoses Not on filedocumented in this encounter
--- OUTSIDE RECORDS SUMMARY | 2022-09-18 12:55 | XMS_ITS | Encounter Summary ---
:1955 Author Organization [facility] Address [address] [place] [address] Care Team Providers Name Role Phone Elsewhere, [...] or relatives? How often do you attend voodoo or More than 4 times per year 06/29/2022 jehovah's witness services? Do you belong to any clubs or Yes 06/29/2022 organizations such as voodoo groups, unions, fraternal or athletic groups, or [...] slept in a group home (including now)? Education Answer Date Recorded What is the highest level of school Master's degree (e.g., M A, MS, 06/29/2022 you have completed or the highest Renetta, MEd, CARDIAC MONITOR TECHNICIAN, TICO) degree you have received? Sex Assigned [...] on filedocumented in this encounter Care Teams Raw Shellfish Preparer Relationship Specialty Start Date End Date Elsewhere, Pcp PCP - General Internal Medicine 06/28/22 documented as of this encounter
--- OUTSIDE RECORDS SUMMARY | 2022-09-18 12:55 | XMS_ITS | Encounter Summary ---
:1955 Author Organization [facility] Address [address] [place] [address] Care Team Providers Name Role Phone Unavailable Primary Care Provider Unavailable Reason for Visit Appointment Request (Routine) - Closed Specialty Diagnoses / Procedures Referred By Contact Refer red To Contact Dermatology Diagnoses Screening Examination Skin Cancer Rehana Mariano M.D. [address] [place] [address] Referral ID Status Reason Start Date Expiration Date Visits Requ ested Visits Authorized [id number] Closed 01/07/2022 01/07/2023 1 1 Encounter Details Date Type Department Care Team Description 02/21/2022 Comprehensive Visit Department of Lotus Bonner Examination Skin Cancer (Primary Dx); Dermatology in Kwame Pearson, M.S. Angioma Waller; [place], [place] [address] [facility] Dermatoheliosis; [address] [place], [place] Photod[employer]age; [place] [address] Keratosis Seborrheic Inflamed; [id number] Keratosis Seborrheic; Nevi Multiple Social History Tobacco [...] or relatives? How often do you attend jain or More than 4 times per year 06/29/2022 oriental orthodox services? Do you belong to any clubs or Yes 06/29/2022 organizations such as jain groups, unions, fraternal or athletic groups, or [...] - Tizo Tinted Face mineral sunscreen - [place] on [place] (found on [employer]) documented in [...]
--- OUTSIDE RECORDS SUMMARY | 2022-09-18 12:55 | XMS_ITS | Encounter Summary ---
:[address] [facility] Address [address] [place] [address] Care Team Providers Name Role Phone Unavailable Primary Care Provider Unavailable Encounter Details Date Type Department Care Team Description 05/08/2009 Hospital Encounter HX [facility] Cliff Padilla M.D. [address] [place], [place] [phone] (Wo rk) Social History [...] or relatives? How often do you attend christian or More than 4 times per year 06/29/2022 episcopal services? Do you belong to any clubs or Yes 06/29/2022 organizations such as christian groups, unions, fraternal or athletic groups, or [...]
--- OUTSIDE RECORDS SUMMARY | 2022-09-18 12:55 | XMS_ITS | Encounter Summary ---
:1955 Author Organization [facility] Address [address] [place] [address] Care Team Providers Name Role Phone Elsewhere, Pcp Primary Care Provider Unavailable Encounter Details Date Type Department Care Team Description 07/03/2022 Orders Only Department of Dermatology in [place], [place] Kwame, M.S. [address] [facility] [address] [place] [address] [place], [place] [phone] (Wo rk) Social History Tobacco Use Types [...] or relatives? How often do you attend mormonism or More than 4 times per year 06/29/2022 cheondoism services? Do you belong to any clubs or Yes 06/29/2022 organizations such as mormonism groups, unions, fraternal or athletic groups, or [...] place to sleep or slept in a half-way (including now)? Education Answer Date Recorded What is the highest level of school Master's degree (e.g., Danica Candelario, , 06/29/2022 you have completed or the highest Renetta, Loli, EXTRUSION DIE REPAIRER, TICO) degree you have received? Sex Assigned at Date Recorded Female 06/29/2022 11:48 AM CDT documented as of this encounter Plan of Treatment Not on filedocumented as of this encounter Visit Diagnoses Not on filedocumented in this encounter Care Teams Flight Agent Relationship Specialty Start Date End Date Elsewhere, Pcp PCP - General Internal Medicine 06/28/22 documented as of this encounter
--- OUTSIDE RECORDS SUMMARY | 2022-09-18 12:55 | XMS_ITS | Encounter Summary ---
:1955 Author Organization [facility] Address [address] [place] [address] Care Team Providers Name Role Phone Elsewhere, Pcp Primary Care Provider Unavailable Reason for Visit Reason Comments Pre-visit Intake Encounter Details Date Type Department Care Team Description 06/28/2022 Clinical Communication Visit Review in Pr e-visit Intake [place], [place] [address] [place], [place] [address] Social History Tobacco Use Types Packs/Day Years [...] or relatives? How often do you attend restorationist or More than 4 times per year 06/29/2022 baptist services? Do you belong to any clubs or Yes 06/29/2022 organizations such as restorationist groups, unions, fraternal or athletic groups, or [...] or slept in a half-way (including now)? Sex Assigned at Date Recorded Female 06/29/2022 11:48 AM CDT documented as of this encounter Plan of Treatment Not on filedocumented as of this encounter Visit Diagnoses Not on filedocumented in this encounter Care Teams Icer Air Conditioning Relationship Specialty Start Date End Date Elsewhere, Pcp PCP - General Internal Medicine 06/28/22 documented as of this encounter
--- OUTSIDE RECORDS SUMMARY | 2022-09-18 12:55 | XMS_ITS | Encounter Summary ---
:1955 Author Organization [facility] Address [address] [place] [address] Care Team Providers Name Role Phone Elsewhere, Pcp Primary Care Provider Unavailable Reason for Visit Reason Comments Rx Prior Authorization FROY DENIED - TRETINOIN CREAM Encounter Details Date Type Department Care Team Description 07/09/2022 Clinical Communication Pharmacy Prior Chani Gabriel Rx Prior RO I. Authorization (FROY [id number] DENIED - TRETIN OIN (Work) CREAM) Social [...] place to sleep or slept in a usp (including now)? Education Answer Date Recorded What is the highest level of school Master's degree (e.g., M A, MS, 06/29/2022 you have completed or the highest Renetta, MEd, POLICYHOLDER INFORMATION CLERK, TICO) degree you have received? Sex Assigned [...] on filedocumented in this encounter Care Teams Medical Office Scheduler Relationship Specialty Start Date End Date Elsewhere, Pcp PCP - General Internal Medicine 06/28/22 documented as of this encounter
--- OUTSIDE RECORDS SUMMARY | 2022-09-18 12:55 | XMS_ITS | Clinical Summary ---
:1955 Author Organization [facility] Address [address] [place] [address] Care Team Providers Name Role Phone Elsewhere, Pcp Primary Care Provider Unavailable Source Comments Patient records contain information from all sites at [facility]. For routine questions regarding patient records, call [phone] during business hours, M-F 8:00 AM - 5:00 PM Central Time. Record requests for emergency care only can be directed to [phone] at any time.[facility] Allergies No known active allergies Medications [...] or relatives? How often do you attend samaritan or More than 4 times per year 06/29/2022 religion services? Do you belong to any clubs or Yes 06/29/2022 organizations such as samaritan groups, unions, fraternal or athletic groups, or [...] place to sleep or slept in a intermediate (including now)? Education Answer Date Recorded What is the highest level of school Master's degree (e.g., Danica Candelario MS, 06/29/2022 you have completed or the highest Renetta, MEd, AIRCRAFT LANDING GEAR INSPECTOR, TICO) degree you have received? Sex Assigned [...] t Range Method Time At Signature 07/10/2022 [facility] 2:44 PM CDT Participated in Gregorio Mars, 07/10/2022 [facility] the [facility] 2:44 PM CDT Interpretation Fellow Report Gauri Yates 07/10/2022 [facility] electronically Kwame Martinez 2:44 PM CDT signed by Gross Description Received in formalin labeled with the patient's n binu, 07/10/2022 [facility] medical record number, and left lower paraspinal back is 2:44 PM CDT a 1.5 x 1.4 x 0.1 cm pale-escamilla, previously inked blue skin shave biopsy. ??There is a 0.8 x 0.5 x 0.2 cm pale zut-qlx-boohm, verrucoid, raised, firm lesion with well-circumscribed borders [...] Organization Address City/State/ZIP Code Phon e Number [facility] - [address] [place], [place] [address] [place] [address] [facility] [address] from Last 3 Months Insurance Payer Benefit Plan Subscriber ID Effective Phone Address Typ e / Group Dates MEDICARE MEDICARE A [id number] 2021-Pres [address] [place] [address] BLUE CROSS BCBS KASAAN [id number] 2021-Pres [phone] PO [place] X Cost Share BLUE SHIELD BLUE COST [place] [phone] [place] [address] Care Teams Psychological Examiner Relationship Specialty Start Date End Date Elsewhere, Pcp PCP - General Internal Medicine 06/28/22
--- OUTSIDE RECORDS SUMMARY | 2022-09-18 12:55 | XMS_ITS | Encounter Summary ---
:1955 Author Organization [facility] Address [address] [place] [address] Care Team Providers Name Role Phone Elsewhere, Pcp Primary Care Provider Unavailable Reason for Referral Medication Prior Authorization - Closed Specialty Diagnoses / Procedures Referred By Contact Refer red To Contact Diagnoses Lotus Palacios M.D., M.S. [address] [place] [address] Referral ID Status Reason Start Date Expiration Date Visits Requ ested Visits Authorized [id number] Closed 1 1 Reason for Visit Appointment Request (Routine) - Closed Specialty Diagnoses / Procedures Referred By Contact Refer elder To Contact Dermatology Diagnoses Keratosis [facility]inic Veronica Referral ID Status Reason Start Date Expiration Date Visits Requ ested Visits Authorized [id number] Closed 04/23/2022 04/23/2023 1 Encounter Details Date Type Department Care Team Description 07/03/2022 Office Visit Department of Lotus Bonner (Prim agustin Dx); Dermatology rfanky Pearson M.D., M.S. Tumor Skin Uncertain Behavior; [place], [place] [address] [facility] Keratosis Seborrheic Inflamed [address] [place] [phone] Social History Tobacco Use Types Packs/Day Years [...] or relatives? How often do you attend restoration or More than 4 times per year 06/29/2022 roman catholic services? Do you belong to any clubs or Yes 06/29/2022 organizations such as restoration groups, unions, fraternal or athletic groups, or [...] place to sleep or slept in a long-term (including now)? Education Answer Date Recorded What is the highest level of school Master's degree (e.g., M A, MS, 06/29/2022 you have completed or the highest Renetta, MEd, SUPERINTENDENT CONCRETE MIXING PLANT, TICO) degree you have received? Sex Assigned at Date Recorded Female 06/29/2022 11:48 AM CDT documented as of this encounter Progress Notes Lotus Bonner M.D., M.S. - 07/03/2022 11:20 AM CDT Correspondence to: Dr. Lotus Bonner Supervising financial consultant, Dr. Lloyd, was immediately available, but [...] the patient by letter. Patient given pamphlet [id number]. #3 Inflamed seborrheic keratoses The benign nature [...] PM CDT Participated in Gregorio Mars, 07/10/2022 [facility] the [facility]ology 2:44 PM CDT Interpretation [...] 0.8 x 0.5 x 0.2 cm pale [id number]-bxldb, verrucoid, raised, firm lesion with well-circumscribed borders [...] Organization Address City/State/ZIP Code Phon e Number [facility] - [address] [place], [place] [address] [place] [address] [facility] [address] documented in this encounter Visit Diagnoses Diagnosis Milia - Primary Tumor Skin Uncertain Behavior Keratosis Seborrheic Inflamed documented in this encounter Care Teams Manager Product Marketing Relationship Specialty Start Date End Date Elsewhere, Pcp PCP - General Internal Medicine 06/28/22 documented as of this encounter
--- OUTSIDE RECORDS SUMMARY | 2022-09-18 12:55 | XMS_ITS | Encounter Summary ---
:1955 Author Organization [facility] Address [address] [place] [address] Care Team Providers Name Role Phone Unavailable Primary Care Provider Unavailable Encounter Details Date Type Department Care Team Description 06/26/2009 Hospital Encounter HX [facility] Cliff Padilla M.D. [address] [place], [place] [phone] (Wo rk) Social History [...] or relatives? How often do you attend denominational or More than 4 times per year 06/29/2022 rastafari services? Do you belong to any clubs or Yes 06/29/2022 organizations such as denominational groups, unions, fraternal or athletic groups, or [...]
--- OUTSIDE RECORDS SUMMARY | 2022-09-18 12:56 | XMS_ITS | Clinical Summary ---
:1955 Author Organization [facility] [place] [address] Care Team Providers Name Role Phone Rehana [...] Type Group BLUE CROSS BLUE CROSS OF [id number] 2015-Present [phone] [place] [address] Care Teams Picture Copyist Relationship Specialty Start Date End Date Rehana Mariano MD PCP - General Internal Medicine 03/12/161999 [place] [address]
--- NOTE | 2022-09-18 13:30 | CRLHL7_ITS ---
For Patients: As a result of the Century Cures Act, medical imaging exams and procedure reports are released immediately into your electronic medical record. You may view this report before your referring provider. If you have questions, please contact your health care provider. DXA BONE MINERAL DENSITY STUDY Reason for exam: Screening. Current height (in): 68. Weight (lb): 165. Menopause age: 54. Ethnicity: White. 1. Have you had a previous hip or vertebral fracture? No. 2. Have you had any fractures during your adult life which did not result from significant trauma (e.g., auto accident)? No. 3. Did either of your parents have a hip fracture? Yes. 4. Do you smoke? No. 5. Have you ever taken Glucocorticoids? No. 6. Do you have rheumatoid arthritis? No. 7. Do you have secondary osteoporosis? No. 8. Do you drink 3 or more alcoholic drinks per day? No. 9. Are you being treated for osteoporosis? No. 10. Have you ever taken any of the following medications: Actonel, Evista, Fosamax, Miacalcin, Reclast, Boniva, Forteo, HRT (i.e., estrogen/hormone therapy), Protelos, Prolia, Vitamin D, Calcium, other ??? please specify. ANSWER: Yes, vitamin D and calcium. 11. Do you have any of the following medical conditions: Anorexia or bulimia, asthma or emphysema, end stage renal disease, hyperparathyroidism, any seizure disorders, cancer, inflammatory bowel diseases, hysterectomy, other ??? please specify. ANSWER: No. 12. What was your maximum height (inches)? 68. 13. Do you perform weight bearing exercise regularly? Yes. 14. Do you regularly consume dairy products? Yes. 15. Do you drink caffeinated beverages? Yes. If female: 16. At what age did your period start? 14. 17. Are you premenopausal? No. 18. How many full-term pregnancies have you had? 2. 19. Have you ever missed your period for more than 6 months in a row (not including or menopause)? No. TECHNIQUE: Bone mineral density study was performed using the [employer]. FINDINGS: The results of the study expressed as bone mineral density (BMD) are as follows: Lumbar spine L1 to L4: BMD: 0.944 g/cm2. T-score: -0.9. Z-score: 0.9 Neck Left: BMD: 0.760 g/cm2. T-score: -0.8. Z-score: 0.8 Right: BMD: 0.730 g/cm2. T-score: -1.1. Z-score: 0.5 Total Left: BMD: 0.904 g/cm2. T-score: -0.3. Z-score: 1.0 Right: BMD: 0.929 g/cm2. T-score: -0.1. Z-score: 1.2 IMPRESSION: Borderline osteopenia. Slight increase in the mineralization of the spine compared to 12/07/2018 by 0.5%. The mineralization of the hips has declined minimally by 0.3%. *Comparison exams done prior to 04/2020 were performed on different unit, [employer]. COMPARISON: Compared with scan of 12/07/2018, the bone mineral density has increased by 0.5 percent at the spine and decreased by 0.3 percent at the hip. FRAX 10-year Fracture Risk Major Osteoporotic Fracture: 16% Hip Fracture: 0.9% Reported Risk Factors: [place] () Neck BMD=0.730, BMI= 25.1, parental fracture JAYSON CARRANZA M.D. Diagnostic/Nuclear Medicine Radiologist [email or web address] KARINAN:dayanara nichole/Dictated by: Jayson Carranza MD @ 09/19/2022 9:54:00 AM (Electronically Signed)
== END 2022-09-18 12:53 | disposition home or self-care (01) ==
LOC: RAD 12:53
PROVIDERS: PCP Internal Medicine; Visit Provider Internal Medicine
DX: I34.1 Nonrheumatic mitral (valve) prolapse (principal); I34.0 Nonrheumatic mitral (valve) insufficiency; Z13.820 Encounter for screening for osteoporosis; M85.89 Other specified disorders of bone density and structure, multiple sites
CPT/HCPCS: 77080; 93306

== ENCOUNTER 2023-08-19 09:30 | Outpatient (CLI) | payer MEDICARE, BC, SELFPAY | END 2023-08-19 09:31 | disposition home or self-care (01) | LOC: NFLDREF 08-21 09:03 | PROVIDERS: PCP Internal Medicine; Referring Provider Internal Medicine; Visit Provider Internal Medicine | DX: E03.9 Hypothyroidism, unspecified (principal); E78.5 Hyperlipidemia, unspecified; M85.80 Other specified disorders of bone density and structure, unspecified site | CPT/HCPCS: 80061; 82306; 84443 ==

== ENCOUNTER 2023-09-19 13:19 | Outpatient (CLI) | payer MEDICARE, BC, SELFPAY ==
--- NOTE | 2023-09-19 13:40 | CRLHL7_ITS ---
For Patients: As a result of the Century Cures Act, medical imaging exams and procedure reports are released immediately into your electronic medical record. You may view this report before your referring provider. If you have questions, please contact your health care provider. BILATERAL SCREENING MAMMOGRAM WITH COMPUTER-AIDED DETECTION AND TOMOSYNTHESIS TECHNIQUE: CC and MLO views were obtained. These mammographic images have been obtained using full-field digital technique. These mammographic images were interpreted with the benefit of computer-aided detection. Breast Tomosynthesis was used in this interpretation. COMPARISON FILM: 09/17/22, 09/04/21, 10/13/20. FINDINGS: The breasts are heterogeneously dense, which may obscure small masses IMPRESSION: There is no radiographic evidence for malignancy. ASSESSMENT: BI-RADS Category 1: Negative RECOMMENDATION: Routine screening mammogram in 1 year. A lay language report of this examination will be provided to the patient. Madhav Pop M.D. Diagnostic Radiologist [email or web address] ANDREW/[email or web address] Transcribed: 12:51 p.patrick nichole/Dictated by: Madhav Pop MD @ 09/22/2023 10:03:00 AM (Electronically Signed)
== END 2023-09-19 13:20 | disposition home or self-care (01) ==
LOC: MAMMO 13:22
PROVIDERS: PCP Internal Medicine; Visit Provider Obstetrics & Gynecology
DX: Z12.31 Encounter for screening mammogram for malignant neoplasm of breast (principal); R92.2 Inconclusive mammogram
CPT/HCPCS: 77063; 77067

== ENCOUNTER 2024-09-01 07:40 | Outpatient (CLI) | payer MEDICARE, BC, SELFPAY ==
--- OUTSIDE RECORDS SUMMARY | 2024-09-01 15:01 | XMS_ITS | Clinical Summary ---
Author Organization [facility] Address [address] [place] [id number] Care Team Providers Care Catering Coordinator Name Role Phone Elsewhere, Pcp Primary Care Provider Unavailabl e Source Comments Patient records contain information from all sites at [facility]. For routine questions regarding patient records, call [phone] during business hours, M-F 8:00 AM - 5:00 PM Central Time. Record requests for emergency care only can be directed to [phone] at any time.[facility] Allergies No known active allergies Medications * This document contains information received from the source organization and may not represent a complete record from that organization. simvastatin (ZOCOR) 10 mg tablet Take 10 mg by mouth at bedtime. 2 Active levothyroxine (SYNTHROID, LEVOTHROID) 100 mcg tablet Take 100 mcg by mouth daily. 2 Active estradioL (VAGIFEM) 10 mcg vaginal tablet INSERT ONE TABLET VAGINALLY TWICE A WEEK 2 Active buPROPion XL (WELLBUTRIN XL) 300 mg 24 hr tablet Take 300 mg by mouth daily. 2 Active cholecalciferol , vitamin D3, (cholecalcifero l) 25 mcg (1,000 Unit) tablet Take 25 mcg by mouth daily. Calcium and Vit D Active amoxicillin-pot clavulanate (AUGMENTIN) 875-125 mg per tablet Take 1 tablet by mouth 2 (two) times a day. 4 Active Paxlovid 300 mg (150 mg x 2)-100 mg dose pack Take 2 nirmatrelvir 150 mg pink-oval tablets and 1 ritonavir 100 mg white-oval tablet together twice daily for 5 days.* 4 Active hydrocortisone- acetic acid (ACETASOL HC) 1-2 % otic solution Administer 3 drops into each ear 2 (two) times a day. If flared, can mix with ketoconazole cream and apply via qtip 10 mL 3 4 Active ketoconazole (NIZORAL) 2 % cream Apply 1 Application topically 2 (two) times a day. Apply to ears if itchy, red or flaking. 15 g 3 4 Active Immunizations Name Administration Dates Next Due HepA Adult 01/03/2006 IPV 01/03/2006 Influenza, Unspecified 08/15/2004 Family History Medical History Relation Name Comments Clotting disorder Brother Keaton Clotting disorder Father Niko Colon polyps Father Niko Colon polyps Mother Keli Hypertension Mother Keli Parkinson disease Mother Keli Seizures Mother Keli Relation Name Status Comments Brother Keaton Father Niko Mother Keli Social History Tobacco Use Types Packs/Day Years Used Date Smoking Tobacco: Never Smokeless Tobacco: Never Tobacco Cessation:Counseling Given: Not Answered Alcohol Use Standard Drinks/Week Comments Yes 0 (1 standard drink = 0.6 oz pur e alcohol) < [address] [facility] [employer] Answer Date Recorded In the past 12 months has [employer], gas, oil, or water [id number] threatened to shut off services in your home? No 02/01/2024 Humiliation, Afraid, Rape, and Kick questionnair e Answer Date Recorded Within the last year, have y ou been afraid of your partner or ex-partner? No 06/29/2022 Within the last year, have y ou been humiliated or emotionally abused in other ways by your partner or ex-partner? No Within the last year, have y ou been kicked, hit, slapped, or otherwise physically hurt by your partner or ex-partner? No 06/29/2022 Within the last year, have y ou been raped or forced to have any kind of sexual activity by your partner or ex-partner? No 06/29/2022 Social Connection and Isolat ion Panel [NHANES] Answer Date Recorded In a typical week, how many times do you talk on the phone with family, friends, or neighbors? More than three times a week 06/29/2022 How often do you get togethe r with friends or relatives? Twice a week 06/29/2022 How often do you attend chur ch or druze services? More than 4 times per year 06/29/2022 Do you belong to any clubs o r organizations such as jainism groups, unions, fraternal or athletic groups, or school groups? Yes 06/29/2022 How often do you attend meet ings of the clubs or organizations you belong to? More than 4 times per year 06/29/2022 Are you , , di vorced, , never , or living with a partner? 06/29/2022 AUDIT-C Answer Date Recorded Q1: How often do you have a drink containing alc ohol? 2-4 times a month 06/29/2022 Q2: How many drinks containi ng alcohol do you have on a typical day when you are drinking? 1 or 2 06/29/2022 Q3: How often do you have si x or more drinks on one occasion? Never 06/29/2022 Overall Financial Resource Strain (CARDIA) Answe r Date Recorded How hard is it for you to pa y for the very basics like food, housing, medical care, and heating? Not hard at all 06/29/2022 [facility] - Occupational Stress Questionnaire Answer Date Recorded Do you feel stress - tense, restless, nervous, or anxious, or unable to sleep at night because your mind is troubled all the time - these days? Not at all 06/29/2022 Exercise Vital Sign Answer Date Recorde d On average, how many days pe r week do you engage in moderate to strenuous exercise (like a brisk walk)? 3 days 02/01/2024 On average, how many minutes do you engage in exercise at this level? 30 min 02/01/2024 Hunger Vital Sign Answer Date Recorded Within the past 12 months, y ou worried that your food would run out before you got the money to buy more. Never true 02/01/20 24 Within the past 12 months, t he food you bought just didn't last and you didn't have money to get more. Never true 02/01/2024 PRAPARE - Transportation Answer Date Re corded In the past 12 months, has l ack of transportation kept you from medical appointments or from getting medications? No 01/03 In the past 12 months, has l ack of transportation kept you from meetings, work, or from getting things needed for daily living? No 02/01/2024 Nutrition Answer Date Recorded Nutrition: EVOO Fat Source Yes 01/31 On average, how many serving s of fruits and vegetables do you eat per day (serving size is equal to 1 cup or approximately the size of a tennis ball)? 3-5 02/01/2024 Dental Answer Date Recorded Dental: Regular Dentist Yes 06/29/20 Employment Answer Date Recorded Employment status Retired 02/01/2024 Housing Stability Answer Date Recorded What is your living situation today? I have a [facility] place to live 02/01/2024 Education Answer Date Recorded What is the highest level of school you have completed or the highest degree you have received? 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 Gender Identity Female 06/29/2022 11:48 AM CDT Sexual Orientation Straight 06/29/2022 11 :48 AM CDT Plan of Treatment Health Maintenance Due Date Last Done Comments Bone Density Scan (Osteoporo sis Screen) 1956 CT Colonography 1956 Cologuard 1956 Colonoscopy 1956 Colorectal Cancer Screening 1956 FIT 1956 Fasting Glucose for Diabetes Screening 1955 Hepatitis C Screening 1955 Mammogram 1955 Thyroid Stimulating Hormone (TSH) test for thyroid function 1956 Hepatitis A Vaccines (2 of 2 - Risk 2-dose series) 07/06/2006 01/03/2006 Depression Screening (Annual PHQ-2) 11/03/2023 Fall Risk Screen (Annual) 11/03/2023 COVID-19 Vaccine (2023-2 5 season) 2024 09/03/2023, 03/29/2023, 07/09/2022, Additional history exists Influenza Vaccine (#1) 2024 , 07/21/2021, 07/21/2020, Additional history exists DTaP,Tdap,and Td Vaccines (3 - Td or Tdap) 03/10/2033 03/10/2023, 11/20/2012 Cervical/Vaginal Cancer Screening Discontinued 021 Zoster Vaccines Completed 08/14/2021, 05/03, 05/12/2013 Pneumococcal vaccine (65+ years) Completed 06/29/20, 05/16/2021 Insurance [facility] MEDICARE Care Teams Catering Coordinator Relationship Specialty Start Date End Date Elsewhere, Pcp PCP - General Internal Medicine 06/28/22
--- OUTSIDE RECORDS SUMMARY | 2024-09-01 15:01 | XMS_ITS | Clinical Summary ---
Author Organization [facility] Address [place], [place] [address] Care Team Providers Care Furniture Sander Name Role Phone Rehana Mariano MD Primary Care Provider [phone] Allergies No known active allergies Medications Medication Sig Dispensed Refills Start Date End Date Status PROTONIX 40 MG TAB take 1 tablet (40 mg) by oral route once daily 0 06/11/2008 Active LEVOTHYROXINE 150 MCG TAB take 1 tablet (150 mcg) by oral route once daily 0 06/11/2008 Active WELLBUTRIN SR 150 MG TAB 0 06/11/2008 Active Active Problems Problem Noted Date Diagnosed Date Screen for colon cancer 03/20/2012 Overview (03/20/2012): Colonoscopy 03/2012 normal repeat in 10 years Social History Tobacco Use Types Packs/Day Years Used Date Smoking Tobacco: Never Tobacco Cessation:Counseling Given: Yes Alcohol Use Standard Drinks/Week Comments Yes 0 (1 standard drink = 0.6 oz pur e alcohol) occasoinal Sex and Gender Information Value Date Recorded Sex Assigned at Not on file Gender Identity Not on file Sexual Orientation Not on file Obstetrics History Last Filed Vital Signs Vital Sign Reading Time Taken Comments Blood Pressure 142/85 03/18/2016 2:58 PM CDT Pulse 80 03/18/2016 2:58 PM CDT Temperature 37.6 ??C (99.6 ??F) 03/18/2016 2:58 PM CD T Respiratory Rate - - Oxygen Saturation 99% 03/18/2016 2:58 PM CDT Inhaled Oxygen Concentration - - Weight 72.1 kg (159 lb) 03/18/2016 2:58 PM CDT Height - - Body Mass Index - - Plan of Treatment Health Maintenance Due Date Last Done Comments Tdap 1967 Depression screening for age 12+ 1968 BMI (ht and wt on same day) for age 18+ 1974 Hepatitis C screening for ag e 18-79 1974 Tetanus booster 1976 Lipids for age 45-75 2001 Zoster (shingles) series for age 50+ (1 of 2) 2006 Mammogram for age 45-75 07/03/2008 07/03/2007 DEXA/DXA scan for age 65+ 2021 Pneumococcal series for age 65+ (1 of 1 - PCV) 2021 Colonoscopy through age 75 03/20/2022 03/20/2012, COVID-19 vaccine series (2023- season) 2024 07/09/2022, 03/03/2022, 08/23/2021, Additional history exists Influenza for age 65+ 07/04/2024 Procedures Procedure Name Priority Date/Time Associated Diagnosis Comments XR MAMMO BILAT SCREEN FFDM (IA) Routine 07/03/2007 2:05 PM CDT Screening Mammogram Other Hx Of Other Hazards To Health Specified from Last 3 Months or Most Recently Relevant to Health Maintenance Results * XR MAMMO BILAT SCREEN FFDM (07/03/2007 2:05 PM CDT) MAMMOGRAM ACR 2 Benign Finding Anatomical Region Laterality Modality BREASTS, Breast Left, Breast Right Bilateral Mammography 07/03/2007 2:05 PM CDT Narrative 07/07/2007 10:50 AM CDT Please see scanned document for results of this study. Procedure Note Fawad Humphrey MD - 07/07/2007 Please see scanned document for results of this study. Georgia Hendricks MD MAMMO from Last 3 Months or Most Recently Relevant to Health Maintenance Care Teams Furniture Sander Relationship Specialty Start Date End Date Rehana Mariano MD [address] [place] [address] PCP - General Internal Medicine 03/12/16
--- OUTSIDE RECORDS SUMMARY | 2024-09-01 15:01 | XMS_ITS ---
Author Organization [facility] Address [address] [place] [id number] Care Team Providers Care Energy Engineer Name Role Phone Unavailable Unavailable Unavailable Surgery Details Not on file Complications Check Surgery Details section. Procedure Estimated Blood Loss Check Surgery Details section. Procedure Findings Check Surgery Details section. Procedure Specimens Taken Check Surgery Details section.
--- OUTSIDE RECORDS SUMMARY | 2024-09-01 15:01 | XMS_ITS | Referral Summary ---
Author Organization [facility] Address [address] [place] [id number] Care Team Providers Care Food Service Hotel Runner Name Role Phone Elsewhere, Pcp Primary Care Provider Unavailabl e Source Comments Patient records contain information from all sites at [facility]. For routine questions regarding patient records, call [phone] during business hours, M-F 8:00 AM - 5:00 PM Central Time. Record requests for emergency care only can be directed to [phone] at any time.[facility] Allergies No known active allergies Medications * [...] pur e alcohol) < 4 per month [facility] [employer] Answer Date Recorded In the past 12 months has [employer], [employer], oil, or water [employer] threatened to shut off services in your [...] week 06/29/2022 How often do you attend [facility] or alevism services? More than 4 times per year 06/29/2022 Do you belong to any clubs o r organizations such as mosque groups, unions, fraternal or athletic groups, or [...] and heating? Not hard at all 06/29/2022 [facility] - Occupational Stress [...] your living situation today? I have a [facility] place to live 02/01/2024 Education Answer Date Recorded What is the highest level of school you have completed or the highest degree you have received? 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
== END 2024-09-01 07:41 | disposition home or self-care (01) ==
LOC: NFLDREF 15:00
PROVIDERS: PCP Internal Medicine; Referring Provider Internal Medicine; Visit Provider Internal Medicine
DX: R03.0 Elevated blood-pressure reading, without diagnosis of hypertension (principal); E03.9 Hypothyroidism, unspecified; M85.80 Other specified disorders of bone density and structure, unspecified site; E78.5 Hyperlipidemia, unspecified; F32.A Depression, unspecified
CPT/HCPCS: 80061; 82306; 84443

== ENCOUNTER 2024-09-20 10:15 | Emergency (ER) | payer MEDICARE, BC, SELFPAY ==
[2024-09-20] VITALS (8 sets, daily range): BP systolic 148–163; BP diastolic 83–98; PULSE 72–96; RESP 14–16; TEMP 36.3; O2SAT 98–100; BMI 25.1
--- NOTE | 2024-09-20 11:05 | ED.GENADULT ---
HPI - General Adult General Time Seen by Provider: 11:06 Date Seen: 09/20/24 Chief complaint: Flank Pain Stated complaint: left side pain Time Seen by Provider: 09/20/24 10:59 Source: patient, family, RN notes reviewed and old records reviewed Mode of arrival: ambulatory Limitations: no limitations History of Present Illness HPI narrative: Leeann is a very pleasant 69-year-old female, retired physical therapist with history of mitral valve prolapse, hypothyroidism, GERD who comes to the emergency room for evaluation regarding left flank pain. Patient notes that she was exercising this morning had the sudden onset of left flank pain. It has been persistent with waxing and waning symptoms since that time. It is associated with vomiting and retching. Patient did have multiple bowel movements but these have been normal in nature. She notes no pain with urination. She states that she did have urgency when she got here but was unable to urinate. She has not had fever or chills, history of kidney stones, colitis, history of diverticulitis in the past. She has otherwise not been ill. She does not think that she pulled any muscle when she was exercising as she is very careful about that. Denies any blood in her urine. Denies any blood in her stool. She notes that she feels better when she is up and moving. She notes that she is exhausted at this point. She has not had any medications for this. Movement seems to help take her mind off of the pain. Related Data Home Medications ?Medication ?Instructions ?Recorded ?Confirmed calcium 600 mg (as 1 tab PO DAILY 07/25/22 09/06/24 carbonate)-vitamin D3 10 mcg (400 unit) tablet cholecalciferol (vitamin D3) 10 10 mcg PO DAILY 07/25/22 09/06/24 mcg (400 unit) capsule triamcinolone acetonide 55 mcg 2 spray intranasal DAILY PRN 08/25/23 09/06/24 nasal spray aerosol nirmatrelvir 300 mg (150 mg See Rx Instructions PO PER PKG DIR 09/06/24 09/06/24 x2)-ritonavir 100 mg tablet,dose PRN Travel pack (Paxlovid) Previous Rx's ?Medication ?Instructions ?Recorded estradiol 10 mcg vaginal tablet 10 mcg vaginal 2XW #30 tabs 04/27/24 triamcinolone acetonide 55 mcg 2 spray intranasal QDAY #16.9 mL 07/14/24 nasal spray aerosol (Nasacort) bupropion HCl 300 mg 24 hr tablet, 300 mg PO DAILY #90 tabs 09/06/24 extended release levothyroxine 100 mcg tablet 100 mcg PO DAILY #90 tabs 09/06/24 omeprazole 20 mg capsule,delayed 20 mg PO QAM #90 caps 09/06/24 release simvastatin 20 mg tablet 20 mg PO QHS #90 tabs 09/06/24 hydrocodone 5 mg-acetaminophen 325 See Rx Instructions .Route 09/20/24 mg tablet .COMPLEX PRN pain #10 tabs ketorolac 10 mg tablet 10 mg PO Q8H PRN pain #15 tabs 09/20/24 ondansetron 4 mg disintegrating 4 mg PO Q8H PRN nausea and 09/20/24 tablet vomiting #10 tabs Allergies Allergy/AdvReac Type Severity Reaction Status Date / Time No Known Drug Allergies Allergy Verified 09/20/24 10:31 Review of Systems Status of ROS: Reports: 10 or more systems reviewed and unremarkable except as noted in History and below Const: Reports: fatigue; Denies: fever or chills Eyes: Denies: change in vision ENMT: Denies: throat pain, neck pain or nasal congestion Cardio: Denies: chest pain, palpitations, swelling of feet/ankles or shortness of breath with exertion Resp: Denies: shortness of breath or cough GI: Reports: abdominal pain, nausea and vomiting; Denies: diarrhea or constipation : Reports: urinary urgency; Denies: painful urination, urinary frequency or blood in urine Musculo: Reports: back pain; Denies: neck pain Integ/Breast: Denies: rash Neuro: Denies: headache or numbness in extremities Endo: Reports: fatigue PFSH PFSH Surgical History History of sinus surgery ?Z98.890 - Other specified postprocedural states (ICD-10) Varicose vein of leg ?I83.90 - Asymptomatic varicose veins of unspecified lower extremity (ICD-10) History of benign breast biopsy (10/13/09) ?Z98.890 - Other specified postprocedural states (ICD-10) Family History Father FH: colon polyps Mother FH: colon polyps Aunt Colon cancer Brother Venous thromboembolism Social History What is your current living situation?: I presently have a place to live Problems where you live: no known problems In the past 12 months, utilities in danger of being shut off: no In the past 12 mos, have been you worried that your food would run out before you had money to buy more?: never true In the past 12 mos, the food you bought just didn't last and you didn't have money to buy more?: never true Smoking Status: Never smoker How often does anyone, including family, friends and others, physically hurt you: never How often does anyone, including family, friends and others, insult or talk down to you: never How often does anyone, including family, friends and others, threaten you with harm: never How often does anyone, including family, friends and others, scream or curse at you: never Exam Narrative: Exam Narrative: Patient is alert and oriented. She does appear fatigued in appearance but nontoxic. External ears eyes nose clear. Her lips are dry. Heart with a regular rate and rhythm and lungs are clear bilaterally. Very subtle pain with percussion over the left flank. No pain over the right. No obvious rash erythema noted on the back. Abdomen is soft without tenderness. Lower extremities without edema. Moving all extremities. Const: Vital Signs, click to edit/add: Vital Signs - 24 hr 09/20/24 10:31 09/20/24 12:38 09/20/24 12:45 Temperature 97.4 F L Pulse Rate 83 80 Pulse Rate [Pulse Oximeter] 72 Respiratory Rate 14 16 Blood Pressure [Ri ght Upper Arm] 163/98 H Pulse Oximetry 98 99 99 Oxygen Delivery Me thod Room Air 09/20/24 13:00 09/20/24 13:15 09/20/24 13:30 Temperature Pulse Rate 80 80 81 Pulse Rate [Pulse Oximeter] Respiratory Rate Blood Pressure [Ri ght Upper Arm] Pulse Oximetry 98 100 100 Oxygen Delivery Me thod 09/20/24 13:45 09/20/24 13:55 Temperature Pulse Rate 96 Pulse Rate [Pulse Oximeter] Respiratory Rate 16 Blood Pressure [Ri ght Upper Arm] 148/83 H Pulse Oximetry 100 Oxygen Delivery Me thod Documenting provider has reviewed patient's vital signs: yes Course Course ED Course: Differential diagnosis includes but is not limited to ureteral colic, nephrolithiasis, UTI, pyelonephritis, colitis, diverticulitis, musculoskeletal injury. Will place IV and give 500 mL normal saline, Zofran 4 mg, Toradol 15 mg Labs will include CBC, comprehensive, urinalysis, CRP. Reevaluation(s) Reevaluation #1: Patient with normal white count, CRP, comprehensive panel. Patient notes pain persists it 06/12. Nausea has been improved with Zofran. Morphine 4 mg IV is ordered Reevaluation #2: Patient much improved with the use of morphine. Hemodynamically stable at this time. Consultations Consultation #1: At the pleasure of speaking with Dr. Villalobos of [facility]. At this time given status does not feel that she needs an emergent urology consult but does recommend follow-up in the next week. Will provide written copy of results as well as DVD for images that they may hand carry. Vital Signs Vital signs: Initial Vital Signs Temperature 97.4 F L 09/20/24 10:31 Temperature Source Temporal Artery Scan 09/20/24 10:31 Pulse Rate 72 09/20/24 10:31 Pulse Rhythm Regular 09/20/24 10:31 Respiratory Rate 14 09/20/24 10:31 Blood Pressure 163/98 H 09/20/24 10:31 Blood Pressure Mean 119 H 09/20/24 10:31 Blood Pressure Position Sitting 09/20/24 10:31 Pulse Oximetry 98 09/20/24 10:31 Oxygen Delivery Method Room Air 09/20/24 10:31 Vital Signs Temperature 97.4 F L 09/20/24 10:31 Pulse Rate 72 09/20/24 10:31 Respiratory Rate 14 09/20/24 10:31 Blood Pressure 163/98 H 09/20/24 10:31 Pulse Oximetry 98 09/20/24 10:31 Oxygen Delivery Method Room Air 09/20/24 10:31 Temperature 97.4 F L 09/20/24 10:31 Pulse Rate 96 09/20/24 13:45 Respiratory Rate 16 09/20/24 13:55 Blood Pressure 148/83 H 09/20/24 13:55 Pulse Oximetry 100 09/20/24 13:45 Oxygen Delivery Method Room Air 09/20/24 10:31 Medications Administered Medications: Discontinued Medications Generic Name Dose Route Start Last Admin Trade Name Amos PRN Reason Stop Dose Admin Sodium Chloride 500 mls @ 500 mls/hr 09/20/24 11:15 09/20/24 13:17 0.9 % Sodium Chloride 500 Ml IV 09/20/24 12:14 Infused .Q1H ONE Infusion Ketorolac Tromethamine 15 mg 09/20/24 11:25 09/20/24 11:43 Ketorolac 15 Mg/Ml Inj IVP 09/20/24 11:26 15 mg ONCE ONE Administration Morphine Sulfate 4 mg 09/20/24 12:26 09/20/24 12:33 Morphine 4 Mg/Ml Inj IVP 09/20/24 12:27 4 mg ONCE ONE Administration Ondansetron HCl 4 mg 09/20/24 11:25 09/20/24 11:44 Ondansetron 2 Mg/Ml Inj IVP 09/20/24 11:26 4 mg ONCE ONE Administration Medical Decision Making [facility] Narrative Medical decision making narrative: 1. Ureteral colic and calculus-patient with 3 mm calculus noted in the UVJ. This should past and I have asked patient to strain her urine to detect this. For pain in the ED are patient received Toradol and Zofran. She then did receive morphine which greatly helped her discomfort. For pain at home suggest Toradol 10 mg p.o. q.8 hours p.r.n. 15. Sent to her pharmacy. For pain not relieved by Toradol suggest Ames 5/325 1-2 p.o. q.6 hours p.r.n. pain 10. Sent to her pharmacy and finally Zofran 4 mg disintegrating tablet p.o. q.8 hours p.r.n. 10. With no refills. Sent to her pharmacy. Patient will be given her 1st dose of Flomax here in the ED and subsequent doses will be supplied by her as he has this medication at home as well. We talked about Flomax causing hypotension and to be sure to stay well hydrated. However given the forniceal rupture would ask that she not overdo it on the for fluids as I want to avoid any subsequent increases in pressure in the pain ureter. 2. Forniceal rupture-did speak to the urology today. Given the fact that she is hemodynamically stable suggest follow-up with urology instead of DISABILITY ATTORNEY. Does not feel this needs to be emergently done today. Patient will contact either male where she has had medical care in the past or through her 's urologist. We have provided a written copy of her results as well as a DVD of the images. 3. Disposition-home at this time. Return to the ER for fever, dysuria, lightheadedness, worsening pain and as needed. Review for laboratory values show a normal white count, CRP, electrolyte panel. Medical Records Medical records reviewed: Yes I reviewed the patient's medical records Lab Data Lab results reviewed: Yes I reviewed the patient's lab results Labs: Lab Results 09/20/24 09/20/24 Range/Units 11:30 12:15 WBC 8.49 (4.50-11.00) K/uL RBC 4.44 (4.00-5.20) m/uL Hgb 13.8 (12.0-16.0) gm/dL Hct 42.1 (33.0-51.0) % MCV 95 (80-100) fL MCH 31 (26-34) pg MCHC 33 (32-36) gm/dL RDW Coeff of Doroteo 12.4 (11.5-15.5) % Plt Count 242 (140-440) K/uL Neut % (Auto) 80.9 H (42.0-72.0) % Lymph % (Auto) 13.8 L (20-44) % Converse % (Auto) 4.0 (0.0-11.0) % Eos % (Auto) 0.8 (0.0-7.0) % Baso % (Auto) 0.4 (0.0-3.0) % Neut # (Auto) 6.90 (1.7-7.0) K/uL Lymph # (Auto) 1.20 (0.90-2.90) K/uL Converse # (Auto) 0.30 (0.00-0.90) K/UL Eos # (Auto) 0.07 (0.00-0.50) K/uL Baso # (Auto) 0.03 (0.00-0.30) K/uL Abs Immat Gran (auto) 0.01 (0.00-0.30) K/uL Imm/Tot Granulo (auto) 0.1 % Sodium 137 (135-149) mmol/L Potassium 4.5 (3.6-5.1) mmol/L Chloride 102 (96-114) mmol/L Carbon Dioxide 27 (20-32) mmol/L Anion Gap 8 (7-15) mEq/L BUN 24 (7-30) mg/dL Creatinine 0.8 (0.5-1.5) mg/dL Estimated Creat Clear 54.32 Estimated GFR 80 ml/min Glucose 106 (60-115) mg/dL Calcium 9.8 (8.4-10.6) mg/dL Total Bilirubin 0.4 (0.1-1.5) mg/dL AST 28 (12-35) U/L ALT 18 (4-35) U/L Alkaline Phosphatase 49 (40-150) U/L C-Reactive Protein < 0.5 L (0.5-1.0) mg/dL Total Protein 7.7 (6.0-8.3) g/dL Albumin 4.7 (3.3-5.0) g/dL Urine Color Yellow (Yellow) Urine Appearance Clear (Clear) Urine pH 6.0 (5.0-8.5) Ur Specific [place] 1.020 (1.000-1.030) Urine Protein Negative (Negative) Urine Glucose (UA) Negative (Negative) Urine Ketones Negative (Negative) Urine Blood Negative (Negative) Urine Nitrite Negative (Negative) Urine Bilirubin Negative (Negative) Urine Urobilinogen 0.2 (0.2-1.0) Ur Leukocyte Esterase Negative (Negative) Urine RBC 0-2 (0-2) Urine WBC 0-2 (0-5) Ur Squamous Epith Cells Few (None-Few) Urine Bacteria None (None) Imaging Data CT scan - abdomen: Attestation: I have reviewed the pertinent imaging results. Radiologist's impression: dney/ureters: There is a calculus at the left UVJ which measures 3 x 2 x 3 mm. There is upstream mild hydroureteronephrosis. Moderate surrounding perinephric free fluid. Nonobstructive 3 mm right renal calculus. Right renal extrarenal pelvis. No right hydroureteronephrosis. Liver/gallbladder/bile ducts: The liver is normal in size, shape and attenuation. Gallbladder is normal without visualized stones or inflammation. No biliary dilatation. Spleen/pancreas/adrenal glands: The spleen, adrenal glands and pancreas are within normal limits. GI tract: The bowel is unremarkable. Abdominal wall/omentum/peritoneum: No free air. No mass or inflammation. Lymph nodes: No lymphadenopathy. Pelvis: Unremarkable pelvis. Bones: Moderate thoracolumbar levoscoliosis. Lower chest: Small to moderate hiatal hernia. Bibasilar subsegmental atelectasis/scarring. IMPRESSION: : There is a calculus at the left UVJ which measures 3 mm. There is upstream mild hydroureteronephrosis with greater than expected moderate volume left perinephric free fluid. While this may reflect reactive fluid from obstructive nephropathy, a renal forniceal rupture is not excluded based on this appearance. Discharge Plan Discharge Clinical Impression: Colic, ureteral, Nephrolithiasis Additional Instructions: 1. Toradol is an NSAID much like ibuprofen that will be used for pain control. 10 mg every 6-8 hours as needed. 2. Ames also known as hydrocodone and Tylenol or Vicodin is are narcotic use for pain not relieved by Toradol. Please be aware that you should not use alcohol nor drive when taking this medication. Please do not combine this with any sedating or sleeping medications. No also that this may cause constipation in you may want to start on a stool softener. 3. Your 1st dose of Flomax will be given here in the ED. you will be straining her urine. If you do not passed the stone please take another dose in 24 hours. 4. Follow-up with urology. A copy of your CT as well as printed results should go home with you today. Return to the emergency room her for fever, increasing abdominal pain, lightheadedness, vomiting and as needed. Prescriptions: New hydrocodone-acetaminophen 5-325 mg tablet See Rx Instructions .ROUTE .COMPLEX PRN (Reason: pain) Qty: 10 0RF Rx Instructions: May use 1-2 tabs every 6 hours as needed for discomfort. ondansetron 4 mg tablet,disintegrating 4 mg PO Q8H PRN (Reason: nausea and vomiting) Qty: 10 0RF ketorolac 10 mg tablet 10 mg PO Q8H PRN (Reason: pain) Qty: 15 0RF Rx Instructions: maximum total duration of 5 days from all oral, intranasal, or parenteral formulations No Action calcium carbonate-vitamin D3 600 mg-10 mcg (400 unit) tablet 1 tab PO DAILY cholecalciferol (vitamin D3) 10 mcg (400 unit) capsule 10 mcg PO DAILY triamcinolone acetonide 55 mcg aerosol,spray 2 spray intranasal DAILY PRN estradiol 10 mcg tablet 10 mcg vaginal 2XW Qty: 30 3RF Paxlovid 300 mg (150 mg x 2)-100 mg tablets,dose pack See Rx Instructions PO PER PKG DIR PRN (Reason: Travel) Patient Comments: Uses only for travel Rx Instructions: take TWO 150 mg tablets of nirmatrelvir with ONE 100 mg tablet of ritonavir twice daily for 5 days orally per package directions PRN; bupropion HCl 300 mg tablet extended release 24 hr 300 mg PO DAILY Qty: 90 3RF simvastatin 20 mg tablet 20 mg PO QHS Qty: 90 3RF levothyroxine 100 mcg tablet 100 mcg PO DAILY Qty: 90 3RF omeprazole 20 mg capsule,delayed release(DR/EC) 20 mg PO QAM Qty: 90 3RF triamcinolone acetonide [Nasacort] 55 mcg aerosol,spray 2 spray intranasal QDAY Qty: 16.9 11RF Rx Instructions: administer into each nostril Follow Up/Referrals: Rehana Mariano MD [Primary Care Provider] - Stand Alone Forms: [facility] Info Instructions
--- OUTSIDE RECORDS SUMMARY | 2024-09-20 11:21 | XMS_ITS | Clinical Summary ---
Author Organization [facility] Address [address] [place] [address] Care Team Providers Care Lace Finisher Name Role Phone Elsewhere, Pcp Primary Care Provider Unavailabl e Source Comments Patient records contain information from all sites at [facility]. For routine questions regarding patient records, call [phone] during business hours, M-F 8:00 AM - 5:00 PM Central Time. Record requests for emergency care only can be directed to [phone] at any time.[facility] Allergies No known active allergies Medications * [...] pur e alcohol) < 4 per month [facility] [employer] Answer Date Recorded In the past 12 months has [employer], gas, oil, or water [employer] threatened to shut off services in your [...] any clubs o r organizations such as alevism groups, unions, fraternal or athletic groups, or [...] and heating? Not hard at all 06/29/2022 [facility] - Occupational Stress [...] your living situation today? I have a [facility] place to live 02/01/2024 Education Answer Date Recorded What is the highest level of school you have completed or the highest degree you have received? Master's degree (e.g., MA, MS, Renetta, MEd, DECORATOR HAND, TICO) 06/29/2022 Comments Unknown Sex and Gender Information Value Date Recorded Sex Assigned at Female 06/29/2022 11:48 AM CDT Legal Sex Female 10:10 PM [employer]EL [employer] Gender Identity Female 06/29/2022 11:48 AM CDT [...] Hormone (TSH) test for thyroid function 1955 IPV Vaccines (2 of 3 - Adult catch-up series) 01/31/2006 01/03/2006 Hepatitis A Vaccines (2 of 2 - Risk 2-dose series) 07/06/2006 01/03/2006 Depression Screening (Annual PHQ-2) 11/03/2023 Fall Risk Screen (Annual) 11/03/2023 COVID-19 Vaccine (2023- 5 season) 2024 09/03/2023, 03/29/2023, 07/09/2022, Additional history exists Influenza Vaccine (#1) 2024 , 07/21/2021, 07/21/2020, Additional history exists DTaP,Tdap,and Td Vaccines (3 - Td or Tdap) 03/10/2033 03/10/2023, 11/20/2012 Cervical/Vaginal Cancer Screening Discontinued 021 Zoster Vaccines Completed 08/14/2021, 05/03, 05/12/2013 Pneumococcal vaccine (65+ years) Completed 06/29/20, 05/16/2021 Insurance [facility] [[email or web address] MEDICARE Care Teams Lace Finisher Relationship Specialty Start Date End Date Elsewhere, Pcp PCP - General Internal Medicine 06/28/22
--- OUTSIDE RECORDS SUMMARY | 2024-09-20 11:21 | XMS_ITS ---
Author Organization [facility] Address [address] [place] [address] Care Team Providers Care Profiler Name Role Phone Unavailable Unavailable Unavailable Surgery Details Not on file Complications Check Surgery Details section. Procedure Estimated Blood Loss Check Surgery Details section. Procedure Findings Check Surgery Details section. Procedure Specimens Taken Check Surgery Details section.
--- OUTSIDE RECORDS SUMMARY | 2024-09-20 11:21 | XMS_ITS | Clinical Summary ---
Author Organization [facility] Address [place], [place] [address] Care Team Providers Care Tax Associate Name Role Phone Rehana Mariano MD Primary Care Provider [phone] Allergies No known active allergies Medications Medication [...] 81 03/18/2016 2:58 PM CDT Temperature 37.6 C (99.6 F) 03/18/2016 2:58 PM CDT Respiratory Rate - [...] age 76 03/20/2022 03/20/2012, COVID-19 vaccine series (2023-25 season) 2024 07/09/2022, 03/03/2022, 08/23/2021, Additional history [...] Recently Relevant to Health Maintenance Care Teams Tax Associate Relationship Specialty Start Date End Date Rehana Mariano MD [address] [place] [address] PCP - General Internal Medicine 03/12/16
--- OUTSIDE RECORDS SUMMARY | 2024-09-20 11:21 | XMS_ITS | Referral Summary ---
Author Organization [facility] Address [address] [place] [id number] Care Team Providers Care Barber Shop Manager Name Role Phone Elsewhere, Pcp Primary Care Provider Unavailabl e Source Comments Patient records contain information from all sites at [facility]. For routine questions regarding patient records, call [phone] during business hours, M-F 8:00 AM - 5:00 PM Central Time. Record requests for emergency care only can be directed to [phone] at any time.[facility] Allergies No known active allergies [...] pur e alcohol) < 4 per month [facility] [employer] Answer Date Recorded In the past 12 months has [employer], oil, or water [employer] threatened to shut off services in your [...] week 06/29/2022 How often do you attend [facility] or sabianist services? More than 4 times per year 06/29/2022 Do you belong to any clubs o r organizations such as jain groups, unions, fraternal [...] and heating? Not hard at all 06/29/2022 [facility] - Occupational Stress [...] your living situation today? I have a [facility] place to live 02/01/2024 Education Answer Date Recorded What is the highest level of school you have completed or the highest degree you have received? 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
--- NOTE | 2024-09-20 11:30 | CRLHL7_ITS ---
For Patients: As a result of the Century Cures Act, medical imaging exams and procedure reports are released immediately into your electronic medical record. You may view this report before your referring provider. If you have questions, please contact your health care provider. INDICATION: Left flank. TECHNIQUE: CT abdomen and pelvis without contrast, stone protocol. COMPARISON: None. FINDINGS: Kidney/ureters: There is a calculus at the left UVJ which measures 3 x 2 x 3 mm. There is upstream mild hydroureteronephrosis. Moderate surrounding perinephric free fluid. Nonobstructive 3 mm right renal calculus. Right renal extrarenal pelvis. No right hydroureteronephrosis. Liver/gallbladder/bile ducts: The liver is normal in size, shape and attenuation. Gallbladder is normal without visualized stones or inflammation. No biliary dilatation. Spleen/pancreas/adrenal glands: The spleen, adrenal glands and pancreas are within normal limits. GI tract: The bowel is unremarkable. Abdominal wall/omentum/peritoneum: No free air. No mass or inflammation. Lymph nodes: No lymphadenopathy. Pelvis: Unremarkable pelvis. Bones: Moderate thoracolumbar levoscoliosis. Lower chest: Small to moderate hiatal hernia. Bibasilar subsegmental atelectasis/scarring. IMPRESSION: : There is a calculus at the left UVJ which measures 3 mm. There is upstream mild hydroureteronephrosis with greater than expected moderate volume left perinephric free fluid. While this may reflect reactive fluid from obstructive nephropathy, a renal forniceal rupture is not excluded based on this appearance. Please note that all CT scans at this facility use dose modulation, iterative reconstruction, and/or weight-based dosing when appropriate to reduce radiation dose to as low as reasonably achievable. Dictated by Mumtaz Roberson MD @ 09/20/2024 12:41:12 PM (Electronically Signed)
[2024-09-20 11:40] LABS: Basophils Absolute Auto 0.03 K/uL (0.00-0.30); Basophils Percent Auto 0.4 % (0.0-3.0); Eosinophils Absolute Auto 0.07 K/uL (0.00-0.50); Eosinophils Percent Auto 0.8 % (0.0-7.0); Hematocrit 42.1 % (33.0-51.0); Hemoglobin* 13.8 gm/dL (12.0-16.0); Immature Granulocytes Abs Auto 0.01 K/uL (0.00-0.30); Immature Granulocytes Pct Auto 0.1 %; Lymphocytes Percent Auto 13.8 % (20-44); Mean Corpuscular HGB Conc 33 gm/dL (32-36); Mean Corpuscular Hemoglobin 31 pg (26-34); Mean Corpuscular Volume 95 fL (80-100); Neutrophils Percent Auto 80.9 % (42.0-72.0); Platelet Count* 242 K/uL (140-440); RDW Coefficient of Variation % 12.4 % (11.5-15.5); Red Blood Count 4.44 m/uL (4.00-5.20); White Blood Count* 8.49 K/uL (4.50-11.00)
[2024-09-20 11:43] LABS: Slide Review Reflex No
[2024-09-20] MEDS: 0.9 % SODIUM CHLORIDE 500 ML 500 ML IV (11:43)
[2024-09-20] MEDS: KETOROLAC 15 MG/ML inj IVP (11:43)
[2024-09-20] MEDS: ONDANSETRON 2 MG/ML inj 4 MG IVP (11:44)
[2024-09-20 11:53] LABS: Albumin* 4.7 g/dL (3.3-5.0); Chloride* 102 mmol/L (96-114); Potassium* 4.5 mmol/L (3.6-5.1); Sodium* 137 mmol/L (135-149)
[2024-09-20 11:55] LABS: Bilirubin Total* 0.4 mg/dL (0.1-1.5); Creatinine* 0.8 mg/dL (0.5-1.5); Est. Creatinine Clearance* 54.32; Estimated Glomerular Filt Rate 80 ml/min
[2024-09-20 11:56] LABS: Alanine Aminotransferase* 18 U/L (4-35); Alkaline Phosphatase* 49 U/L (40-150); Anion Gap 8 mEq/L (7-15); Aspartate Amino Transferase* 28 U/L (12-35); Blood Urea Nitrogen* 24 mg/dL (7-30); Carbon Dioxide* 27 mmol/L (20-32); Glucose* 106 mg/dL (60-115); Total Protein* 7.7 g/dL (6.0-8.3)
[2024-09-20 11:57] LABS: Calcium* 9.8 mg/dL (8.4-10.6)
[2024-09-20 12:00] LABS: C Reactive Protein* < 0.5 mg/dL (0.5-1.0)
[2024-09-20] MEDS: MORPHINE 4 MG/ML INJ IVP (12:33)
[2024-09-20 12:34] LABS: Appearance Urine Clear (Clear); Bilirubin Urine Negative (Negative); Blood Urine Negative (Negative); Color Urine Yellow (Yellow); Glucose Urine Negative (Negative); Ketones Urine Negative (Negative); Leukocyte Esterase Urine Negative (Negative); Nitrite Urine Negative (Negative); Protein Urine Negative (Negative); Urobilinogen Urine 0.2 (0.2-1.0)
[2024-09-20 12:47] LABS: RBC Urine 0-2 (0-2); Squamous Epithelial Cell Urine Few (None-Few); WBC Urine 0-2 (0-5)
== END 2024-09-20 14:52 | disposition home or self-care (01) ==
PROVIDERS: Emergency Provider Family Medicine; PCP Internal Medicine
DX: N20.9 Urinary calculus, unspecified (principal)
CPT/HCPCS: 36415; 74176; 80053; 81001; 85025; 86140; 94761; 96374; 96375; 99284; J1885; J2270; J2405; J7030

== ENCOUNTER 2024-10-05 08:51 | Outpatient (CLI) | payer MEDICARE, BC, SELFPAY ==
--- OUTSIDE RECORDS SUMMARY | 2024-10-05 08:59 | XMS_ITS | Clinical Summary ---
Author Organization [facility] Address [address] [place] [id number] Care Team Providers Care Harness Cleaner Name Role Phone Elsewhere, Pcp Primary Care Provider Unavailabl e Source Comments Patient records contain information from all sites at [facility]. For routine questions regarding patient records, call [phone] during business hours, M-F 8:00 AM - 5:00 PM Central Time. Record requests for emergency care only can be directed to [phone] at any time.[facility] Allergies No known active allergies Medications * [...] or flaking. 15 g 3 4 Active tamsulosin (Flomax) 0.4 mg 24 hr capsule Take 1 capsule (0.4 mg total) by mouth daily. Take daily until stone passage 30 capsule 4 10/22/20 24 Active levoFLOXacin (Levaquin) 500 mg tablet Take 1 tablet (500 mg total) by mouth daily for 14 days. 14 tablet 4 10/08/20 24 Active Active Problems Problem Noted Date Diagnosed Date Stone Kidney And Ureteral 09/22/2024 Nephrolithiasis 09/22/2024 Encounters Date Type Department Care Team Description 09/24/2024 Clinical Communication Department of Urology in [place], [place] [address] [place] [phone] Mohini Larson M.D. 09/22/2024 10:00 AM MEDICAL CHIEF TECHNICIAN Comprehensive Visit Department of Urology in [place], [place] [address] [place] [phone] Efrain Valadez M.D. Nephrolithiasis (Primary Dx) 09/22/2024 7:36 AM MEDICAL CHIEF TECHNICIAN - 09/22/2024 11:59 PM MEDICAL CHIEF TECHNICIAN Hospital Encounter Department of Laboratory Medicine and Pathology, [place], [place] [address] [place] [phone] Efrain Valadez M.D. Hydronephrosis Discharge Disposition: Home or Self Care 09/22/2024 7:36 AM MEDICAL CHIEF TECHNICIAN - 09/22/2024 11:59 PM MEDICAL CHIEF TECHNICIAN Hospital Encounter Department of Laboratory Medicine and Pathology, [place], [place] [address] [place] [address] Efrain Valadez M.D. Hydronephrosis Discharge Disposition: Home or Self Care 09/22/2024 Documentation Preoperative Evaluation Center in [place], [place] [address] [place] [address] Valery Hinton MPAS, P.A.-C. 09/22/2024 Clinical Communication Department of Urology in [place], [place] [address] [place] [address] Efrain Valadez M.D. 09/21/2024 Clinical Communication Department of Urology in [place], [place] [address] [place] [address] Efrain Valadez M.D. from Last 3 Months Immunizations Name Administration [...] pur e alcohol) < 4 per month [facility] Utilities Answer Date Recorded In the past 12 months has e English Helper, gas, oil, or water [facility] threatened to shut off services in your [...] 06/29/2022 How often do you attend chur or evangelical services? More than 4 times per year 06/29/2022 Do you belong to any clubs o r organizations such as anabaptism groups, unions, fraternal or athletic groups, or [...] your living situation today? I have a [facility] place to live 02/01/2024 Education Answer Date Recorded What is the highest level of school you have completed or the highest degree you have received? Master's degree (e.g., MA, MS, Renetta, MEd, [employer], TICO) 06/29/2022 Comments Unknown Sex and Gender Information Value Date Recorded Sex Assigned at Female 06/29/2022 11:48 AM CDT Legal Sex Female 10:10 PM MEDICAL CHIEF TECHNICIAN Gender Identity Female 06/29/2022 11:48 AM CDT Sexual Orientation Straight 06/29/2022 11 :48 AM CDT Plan of Treatment Upcoming Encounters Date Type Department Care Team (Latest Contact Info) Description 10/07/2024 6:03 PM MEDICAL CHIEF TECHNICIAN Hospital Encounter RST RO 4 AM ADMIT [address] [place] [address] Efrain Valadez M.D. [address] [place] [address] 10/07/2024 6:03 PM MEDICAL CHIEF TECHNICIAN - 10/07/2024 8:04 PM MEDICAL CHIEF TECHNICIAN Surgery RST RO MAIN OR [address] [place] [address] Efrain Valadez M.D. [address] [place] [address] URETEROSCOPY WITH LASER LITHOTRIPSY, LEFT. Scheduled Procedures Name Priority Associated Diagnoses Date/Ti me URETEROSCOPY WITH LASER LITHOTRIPSY Stone Kidney And Ureteral Nephrolithiasis 10/07/2024 6:03 PM MEDICAL CHIEF TECHNICIAN CYSTOURETHROSCOPY WITH PLACEMENT URETERAL STENT Stone Kidney And Ureteral Nephrolithiasis 10/07/2024 6:03 PM MEDICAL CHIEF TECHNICIAN RETROGRADE PYELOGRAM Stone Kidney And Ureteral Nephrolithiasis 10/07/2024 6:03 PM MEDICAL CHIEF TECHNICIAN Health Maintenance Due Date Last Done Comments Bone Density Scan (Osteoporo sis Screen) 1956 CT Colonography 1956 Cologuard 1956 Colonoscopy 1956 Colorectal Cancer Screening 1956 FIT 1955 Hepatitis C Screening 1955 Mammogram 1955 Thyroid Stimulating Hormone (TSH) test for thyroid function 1956 IPV Vaccines (2 of 3 - Adult catch-up series) 01/31/2006 01/03/2006 Depression Screening (Annual PHQ-2) 11/03/2023 Fall Risk Screen (Annual) 11/03/2023 COVID-19 Vaccine (9 2023-2 5 season) 2024 02/14/2024, 09/03/2023, 03/29/2023, Additional history exists Fasting Glucose for Diabetes Screening 09/22/2027 09/22/2024 DTaP,Tdap,and Td Vaccines (3 - Td or Tdap) 03/10/2033 03/10/2023, 11/20/2012 Cervical/Vaginal Cancer Screening Discontinued 021 Zoster Vaccines Completed 08/14/2021, 05/03, 05/12/2013 Pneumococcal vaccine (65+ years) Completed 06/29/20, 05/16/2021 Influenza Vaccine Completed 09/06/2024, , 08/22/2022, Additional history exists Procedures Procedure Name Priority Date/Time Associated Diagnosis Comments DIPSTICK, U Routine 09/22/2024 8:20 AM MEDICAL CHIEF TECHNICIAN OSMOLALITY, U Routine 09/22/2024 8:20 AM MEDICAL CHIEF TECHNICIAN PH, U Routine 09/22/2024 8:20 AM MEDICAL CHIEF TECHNICIAN MICROSCOPIC AUTOMATED Routine 09/22/2024 8:20 AM MEDICAL CHIEF TECHNICIAN URINALYSIS WITH MICROSCOPIC Routine 09/22/2024 8:20 AM MEDICAL CHIEF TECHNICIAN Hydronephrosis BACTERIAL CULTURE, AEROBIC + SUSC, URINE Routine 09/22/2024 8:20 AM MEDICAL CHIEF TECHNICIAN Hydronephrosis BASIC METABOLIC PANEL, S/P Routine 09/22/2024 8:10 AM MEDICAL CHIEF TECHNICIAN Hydronephrosis OUTSIDE CT BODY Routine 09/20/2024 12:10 PM MEDICAL CHIEF TECHNICIAN from Last 3 Months Results * Dipstick, Urine (09/22/2024 8:20 AM MEDICAL CHIEF TECHNICIAN) Hemoglobin, QL, U Negative Negative 09/22/2024 9:17 AM MEDICAL CHIEF TECHNICIAN DTL Leukocyte Esterase, U Negative Negative 09/22/2024 9:17 AM MEDICAL CHIEF TECHNICIAN DTL Nitrite, U Negative Negative 09/22/2024 9:17 AM MEDICAL CHIEF TECHNICIAN DTL Ketone, U Negative Negative mg/dL 09/22/2024 9:17 AM MEDICAL CHIEF TECHNICIAN DTL Glucose, U Negative Negative mg/dL 09/22/2024 9:17 AM MEDICAL CHIEF TECHNICIAN DTL Urine 09/22/2024 8:20 AM MEDICAL CHIEF TECHNICIAN 09/22/2024 8:40 AM MEDICAL CHIEF TECHNICIAN Efrain Valadez M.D. LAB URINE ORDERABLES Final Re sult [facility] [address] [place] [address], [facility] DTL [facility] [address] [place] [address] * Microscopic Automated (09/22/2024 8:20 AM MEDICAL CHIEF TECHNICIAN) Microscopy Normal 09/22/2024 9:17 AM MEDICAL CHIEF TECHNICIAN DTL RBC <3 <3 /hpf 09/22/2024 9:17 AM MEDICAL CHIEF TECHNICIAN DTL WBC None Seen /hpf 09/22/2024 9:17 AM MEDICAL CHIEF TECHNICIAN DTL Comment: ----REFERENCE VALUE---- <4 (Males) <11 (Females) Urine 09/22/2024 8:20 AM MEDICAL CHIEF TECHNICIAN 09/22/2024 8:40 AM MEDICAL CHIEF TECHNICIAN Efrain Valadez M.D. LAB URINE ORDERABLES Final Re sult [facility] [address] [place] [address], [facility] DTL [facility] [address] [place] [address] * (ABNORMAL) Bacterial Culture, Aerobic + Susceptibility, Urine (09/22/2024 8:20 AM MEDICAL CHIEF TECHNICIAN) Urine Culture With urogenital microbiota, susceptibilities not performed per laboratory criteria. (A) 09/24/2024 1:35 PM MEDICAL CHIEF TECHNICIAN DTL Urine Culture PSEUDOMONAS AERUGINOSA 10,000-100,000 cfu/mL (A) 09/24/2024 1:35 PM MEDICAL CHIEF TECHNICIAN DTL Comment: Gentamicin should not be used for P. aeruginosa. There are no gentamicin breakpoints for P. aeruginosa. Urine (Urine, Midstream) 09/22/2024 8:20 AM MEDICAL CHIEF TECHNICIAN 09/22/2024 9:15 AM MEDICAL CHIEF TECHNICIAN Comment:Specimen Source Site : Urine Narrative Organism Antibiotic Method Susceptibility Pseudomonas aeruginosa Meropenem SUSCEPTIB ILITY, SPENCER (MCG/ML) 1 mcg/mL: Susceptible Pseudomonas aeruginosa Piperacillin + Tazobactam SUSCEPTIBILITY, SPENCER (MCG/ML) <=8/4 mcg/mL: Susceptible Pseudomonas aeruginosa Ciprofloxacin SUSCEPTIB ILITY, SPENCER (MCG/ML) <=0.25 mcg/mL: Susceptible Pseudomonas aeruginosa Levofloxacin SUSCEPTIB ILITY, SPENCER (MCG/ML) 1 mcg/mL: Susceptible Pseudomonas aeruginosa Ceftazidime SUSCEPTIB ILITY, SPENCER (MCG/ML) <=4 mcg/mL: Susceptible Pseudomonas aeruginosa Cefepime SUSCEPTIB ILITY, SPENCER (MCG/ML) <=2 mcg/mL: Susceptible Pseudomonas aeruginosa Amikacin SUSCEPTIB ILITY, SPENCER (MCG/ML) 8 mcg/mL: Susceptible Pseudomonas aeruginosa Tobramycin SUSCEPTIB ILITY, SPENCER (MCG/ML) <=1 mcg/mL: Susceptible Pseudomonas aeruginosa Aztreonam SUSCEPTIB ILITY, SPENCER (MCG/ML) 8 mcg/mL: Susceptible us Efrain Valadez M.D. LAB MICROBIOLOGY - GENERAL OR DERABLES Final Result Performing Organization Address [facility] Co de Phone Number [facility] [address] [place], [place] [id number] [place] [address] 200 [place] [address] * pH, Urine (09/22/2024 8:20 AM MEDICAL CHIEF TECHNICIAN) pH, U 5.3 4.5 - 8.0 09/22/2024 9:5 0 AM MEDICAL CHIEF TECHNICIAN DT Urine 09/22/2024 8:20 AM MEDICAL CHIEF TECHNICIAN 09/22/2024 8:40 AM MEDICAL CHIEF TECHNICIAN us Efrain Valadez M.D. LAB URINE ORDERABLES Final Re sult Performing Organization Address [facility] Co de Phone Number [facility] [address] [place], [place] [phone] [place] [address] 200 [place] [address] * (ABNORMAL) Osmolality, Urine (09/22/2024 8:20 AM MEDICAL CHIEF TECHNICIAN) Osmolality, U 133(L) 150 - 1150 mOsm/kg 09/22/2024 9:50 AM MEDICAL CHIEF TECHNICIAN DT Urine 09/22/2024 8:20 AM MEDICAL CHIEF TECHNICIAN 09/22/2024 8:40 AM MEDICAL CHIEF TECHNICIAN us Efrain Valadez M.D. LAB URINE ORDERABLES Final Re sult Performing Organization Address [facility] Co de Phone Number [facility] [address] [place], [place] [phone] [place] [address] 200 [place] [address] * Urinalysis, with Microscopic: Urine, Midstream (09/22/2024 8:20 AM MEDICAL CHIEF TECHNICIAN) Source Urine, Urine, Midstream 09/22/2024 8:40 AM MEDICAL CHIEF TECHNICIAN DTL Color, U Yellow 09/22/2024 8:40 AM MEDICAL CHIEF TECHNICIAN DTL Clarity, U Clear 09/22/2024 8:40 AM MEDICAL CHIEF TECHNICIAN DTL Protein, U <4 <26 mg/dL 09/22/2024 9:28 AM MEDICAL CHIEF TECHNICIAN DTL Protein/Osmol ality <0.30 <0.42 ratio 09/22/2024 9:50 AM MEDICAL CHIEF TECHNICIAN DTL Predicted 24 HR Protein, U <225 <229 mg/24 h 09/22/2024 9:50 AM MEDICAL CHIEF TECHNICIAN DTL Predicted Range <910 mg/24 h 09/22/2024 9:50 AM MEDICAL CHIEF TECHNICIAN DTL Urine (Urine, Midstream) 09/22/2024 8:20 AM MEDICAL CHIEF TECHNICIAN 09/22/2024 8:40 AM MEDICAL CHIEF TECHNICIAN us Efrain Valadez M.D. LAB URINE ORDERABLES Final Re sult [facility] [place] [place] [address], [facility] [place] [address] * (ABNORMAL) Basic Metabolic Panel (09/22/2024 8:10 AM MEDICAL CHIEF TECHNICIAN) Pathologist [facility] Potassium, S 4.3 3.6 - 5.2 mmol/L 09/22/2024 9:14 AM MEDICAL CHIEF TECHNICIAN DTL Sodium, S 142 135 - 145 mmol/L 09/22/2024 9:14 AM MEDICAL CHIEF TECHNICIAN DTL Chloride, S 108(H) 98 - 107 mmol/L 09/22/2024 9:14 AM MEDICAL CHIEF TECHNICIAN DTL Bicarbonate, S 23 22 - 29 mmol/L 09/22/2024 9:14 AM MEDICAL CHIEF TECHNICIAN DTL Anion Gap 11 7 - 15 09/22/2024 9:14 AM MEDICAL CHIEF TECHNICIAN DTL BUN (Blood Urea Nitrogen), S 16 6 - 21 mg/dL 09/22/2024 9:14 AM MEDICAL CHIEF TECHNICIAN DTL Creatinine 0.76 0.59 - 1.04 mg/dL 09/22/2024 9:14 AM MEDICAL CHIEF TECHNICIAN DTL Estimated GFR (eGFR) 85 >=60 mL/min/BSA 09/22/2024 9:14 AM MEDICAL CHIEF TECHNICIAN DTL Comment: Estimated GFR calculated using the 2020 CKD_EPI creatinine equation. Calcium, Total, S 9.2 8.8 - 10.2 mg/dL 09/22/2024 9:14 AM MEDICAL CHIEF TECHNICIAN DTL Glucose, S 94 70 - 140 mg/dL 09/22/2024 9:14 AM MEDICAL CHIEF TECHNICIAN DTL Blood (Blood, Venous) 09/22/2024 8:10 AM MEDICAL CHIEF TECHNICIAN 09/22/2024 8:50 AM MEDICAL CHIEF TECHNICIAN Efrain Valadez M.D. LAB BLOOD ADD-ON Final Result Performing Organization Address [facility] Co de Phone Number [facility] [address] [place] [address], [facility] [address] [place] [address] * CT ABDOMEN PELVIS WO CON-Outside CT Body (09/20/2024 12:10 PM MEDICAL CHIEF TECHNICIAN) Narrative [facility] - 09/22/2024 9:36 AM MEDICAL CHIEF TECHNICIAN This order has been created and auto-finalized to support the import of outside images. If available, original interpretation can be found on the Media Tab in Chart Review, in Document Viewer, as an image in QREADS or as an Addendum. If a re-interpretation or overread is required please follow defined workflow. Provider Not In System IMG CT PROCEDURES Final R esult Performing Organization Address [facility] Co de Phone Number [facility] NA from Last 3 Months Insurance [facility] MEDICARE Care Teams Harness Cleaner Relationship Specialty Start Date End Date Elsewhere, Pcp PCP - General Internal Medicine 06/28/22
--- NOTE | 2024-10-05 09:00 | CRLHL7_ITS ---
For Patients: As a result of the Century Cures Act, medical imaging exams and procedure reports are released immediately into your electronic medical record. You may view this report before your referring provider. If you have questions, please contact your health care provider. INDICATION: Nephrolithiasis follow-up. TECHNIQUE: CT abdomen and pelvis without contrast. COMPARISON: 09/20/2024. FINDINGS: Lower chest: Mild bibasilar atelectasis. Liver: Normal in size and attenuation. Subcentimeter hypodense lesions that are too small to characterize but possibly cysts. No suspicious masses. Gallbladder and bile ducts: No stones or inflammation. No biliary dilatation. Pancreas: Unremarkable. No mass or inflammation. Spleen: Normal in size. No masses. Adrenal glands: Normal in size. No nodules. Kidneys: Normal in size. 2 mm nonobstructive left renal calcification. Interval clearance of the previously demonstrated distal left ureteral stone (108). No hydronephrosis GI tract: Above average colonic stool burden. Normal in caliber. No sign of mass or inflammation. Normal appendix. Vasculature: Atherosclerotic calcifications of the abdominal aorta. Abdominal aorta is normal in caliber. Lymph nodes: No lymphadenopathy. Peritoneum/Abdominal Wall: Unremarkable. No sign of mass or infiltration. No free air or significant free fluid. Pelvis: Bladder is unremarkable. Uterine calcifications, possibly fibroids. Bones: No acute or suspicious lesions. IMPRESSION: 1. Compared to 09/20/2024, interval clearance of the previously demonstrated distal left ureteral stone. 2 mm nonobstructive left renal stone remains. 2. Above-average colonic stool burden could be consistent with constipation, if clinically suggested. Please note that all CT scans at this facility use dose modulation, iterative reconstruction, and/or weight-based dosing when appropriate to reduce radiation dose to as low as reasonably achievable. Dictated by Madhav Beard MD @ 10/06/2024 2:09:21 AM (Electronically Signed)
--- OUTSIDE RECORDS SUMMARY | 2024-10-05 09:00 | XMS_ITS ---
Author Organization [facility] [place] [address] Care Team Providers Care Search Engine Optimization Consultant Name Role Phone Unavailable Unavailable Unavailable Surgery Details Not on file Complications Check Surgery Details section. Procedure Estimated Blood Loss Check Surgery Details section. Procedure Findings Check Surgery Details section. Procedure Specimens Taken Check Surgery Details section.
--- OUTSIDE RECORDS SUMMARY | 2024-10-05 09:00 | XMS_ITS | Clinical Summary ---
Author Organization [facility] Address [place], [place] [address] Care Team Providers Care Telecommunications Administrator Name Role Phone Rehana Mariano MD Primary Care Provider [phone] Allergies No known active allergies Medications Medication [...] Recently Relevant to Health Maintenance Care Teams Telecommunications Administrator Relationship Specialty Start Date End Date Rehana Mariano MD [address] [place] [address] PCP - General Internal Medicine 03/12/16
--- OUTSIDE RECORDS SUMMARY | 2024-10-05 09:00 | XMS_ITS | Referral Summary ---
Author Organization [facility] Address [address] [place] [address] Care Team Providers Care Bolt Sorter Name Role Phone Elsewhere, Pcp Primary Care Provider Unavailabl e Source Comments Patient records contain information from all sites at [facility]. For routine questions regarding patient records, call [phone] during business hours, M-F 8:00 AM - 5:00 PM Central Time. Record requests for emergency care only can be directed to [phone] at any time.[facility] Encounters Date Type Department Care Team Description 09/24/2024 Clinical Communication Department of Urology in [place], [place] [address] [place] [phone] Mohini Larson M.D. 09/22/2024 Documentation Preoperative Evaluation Center in [place], [place] [address] [place] [phone] Valery Hinton MPAS, P.A.-C. 09/22/2024 Clinical Communication Department of Urology in [place], [place] [address] [place] [phone] Efrain Valadez M.D. 09/22/2024 7:36 AM NUCLEAR MEDICINE OFFICER - 09/22/2024 11:59 PM NUCLEAR MEDICINE OFFICER Hospital Encounter Department of Laboratory Medicine and Pathology, [place], [place] [address] [place] [phone] Efrain Valadez M.D. Hydronephrosis Discharge Disposition: Home or Self Care 09/22/2024 7:36 AM NUCLEAR MEDICINE OFFICER - 09/22/2024 11:59 PM NUCLEAR MEDICINE OFFICER Hospital Encounter Department of Laboratory Medicine and Pathology, [facility] in [place], [place] [address] [place] [phone] Efrain Valadez M.D. Hydronephrosis Discharge Disposition: Home or Self Care 09/22/2024 10:00 AM NUCLEAR MEDICINE OFFICER Comprehensive Visit Department of Urology in [place], [place] [address] [place] [address] Efrain Valadez M.D. Nephrolithiasis (Primary Dx) 09/21/2024 Clinical Communication Department of Urology in [place], [place] [address] [place] [address] Efrain Valadez M.D. from Last 3 Months Allergies No known active allergies Medications * [...] [facility] 09/22/2024 Nephrolithiasis 09/22/2024 Immunizations Name Administration Dates Next Due HepA Adult 01/03/2006 IPV 01/03/2006 Influenza, Unspecified 08/15/2004 Social History Tobacco Use Types Packs/Day Years Used Date Smoking Tobacco: Never Smokeless Tobacco: Never Tobacco Cessation:Counseling Given: Not Answered Alcohol Use Standard Drinks/Week Comments Yes 0 (1 standard drink = 0.6 oz pur e alcohol) < 4 per month [employer] Answer Date Recorded In the past 12 months has [employer], oil, or water [employer] threatened to shut off services in your [...] often do you attend chur ch or moravian services? More than 4 times per year 06/29/2022 Do you belong to any clubs o r organizations such as mandaeism groups, unions, fraternal [...] and heating? Not hard at all 06/29/2022 [facility] - Occupational [...] your living situation today? I have a [facility] place to live 02/01/2024 Education Answer Date Recorded What is the highest level of school you have completed or the highest degree you have received? Master's degree (e.g., MA, MS, Renetta, MEd, FARM CONSULTANT, TICO) 06/29/2022 Comments Unknown Sex and Gender Information Value Date Recorded Sex Assigned at Female 06/29/2022 11:48 AM CDT Legal Sex Female 10:10 PM NUCLEAR MEDICINE OFFICER Gender Identity Female 06/29/2022 11:48 AM CDT Sexual Orientation Straight 06/29/2022 11 :48 AM CDT Plan of Treatment Upcoming Encounters Date Type Department Care Team (Latest Contact Info) Description 10/07/2024 6:03 PM NUCLEAR MEDICINE OFFICER Hospital Encounter RST RO 01 4 AM ADMIT [address] [place] [address] Efrain Valadez M.D. [address] [place] [address] 10/07/2024 6:03 PM NUCLEAR MEDICINE OFFICER - 10/07/2024 8:04 PM NUCLEAR MEDICINE OFFICER Surgery [facility] MAIN OR [address] [place] [address] Efrain Valadez M.D. [address] [place] [address] URETEROSCOPY WITH LASER LITHOTRIPSY, LEFT. Scheduled Procedures Name Priority Associated Diagnoses Date/Ti me URETEROSCOPY WITH LASER LITHOTRIPSY [facility] Nephrolithiasis 10/07/2024 6:03 PM NUCLEAR MEDICINE OFFICER CYSTOURETHROSCOPY WITH PLACEMENT URETERAL STENT [facility] Nephrolithiasis 10/07/2024 6:03 PM NUCLEAR MEDICINE OFFICER RETROGRADE PYELOGRAM [facility] Nephrolithiasis 10/07/2024 6:03 PM NUCLEAR MEDICINE OFFICER Procedures Procedure Name Priority Date/Time Associated Diagnosis Comments DIPSTICK, U Routine 09/22/2024 8:20 AM NUCLEAR MEDICINE OFFICER OSMOLALITY, U Routine 09/22/2024 8:20 AM NUCLEAR MEDICINE OFFICER PH, U Routine 09/22/2024 8:20 AM NUCLEAR MEDICINE OFFICER MICROSCOPIC AUTOMATED Routine 09/22/2024 8:20 AM NUCLEAR MEDICINE OFFICER URINALYSIS WITH MICROSCOPIC Routine 09/22/2024 8:20 AM NUCLEAR MEDICINE OFFICER Hydronephrosis BACTERIAL CULTURE, AEROBIC + SUSC, URINE Routine 09/22/2024 8:20 AM NUCLEAR MEDICINE OFFICER Hydronephrosis BASIC METABOLIC PANEL, S/P Routine 09/22/2024 8:10 AM NUCLEAR MEDICINE OFFICER Hydronephrosis OUTSIDE CT BODY Routine 09/20/2024 12:10 PM NUCLEAR MEDICINE OFFICER from Last 3 Months Results * Dipstick, Urine (09/22/2024 8:20 AM NUCLEAR MEDICINE OFFICER) Hemoglobin, QL, U Negative Negative 09/22/2024 9:17 AM NUCLEAR MEDICINE OFFICER DTL Leukocyte Esterase, U Negative Negative 09/22/2024 9:17 AM NUCLEAR MEDICINE OFFICER DTL Nitrite, U Negative Negative 09/22/2024 9:17 AM NUCLEAR MEDICINE OFFICER DTL Ketone, U Negative Negative mg/dL 09/22/2024 9:17 AM NUCLEAR MEDICINE OFFICER DTL Glucose, U Negative Negative mg/dL 09/22/2024 9:17 AM NUCLEAR MEDICINE OFFICER DTL Urine 09/22/2024 8:20 AM NUCLEAR MEDICINE OFFICER 09/22/2024 8:40 AM NUCLEAR MEDICINE OFFICER Efrain Valadez M.D. LAB URINE ORDERABLES Final Re sult Performing Organization Address [facility] de Phone Number [facility] [address] [place] [address] * Microscopic Automated (09/22/2024 8:20 AM NUCLEAR MEDICINE OFFICER) Microscopy Normal 09/22/2024 9:17 AM NUCLEAR MEDICINE OFFICER DTL RBC <3 <3 /hpf 09/22/2024 9:17 AM NUCLEAR MEDICINE OFFICER DTL WBC None Seen /hpf 09/22/2024 9:17 AM NUCLEAR MEDICINE OFFICER DTL Comment: ----REFERENCE VALUE---- <4 (Males) <11 (Females) Urine 09/22/2024 8:20 AM NUCLEAR MEDICINE OFFICER 09/22/2024 8:40 AM NUCLEAR MEDICINE OFFICER Efrain Valadez M.D. LAB URINE ORDERABLES Final Re sult Performing Organization Address [facility] de Phone Number [facility] [address] [place] [address] * (ABNORMAL) Bacterial Culture, Aerobic + Susceptibility, Urine (09/22/2024 8:20 AM NUCLEAR MEDICINE OFFICER) [facility] Urine Culture With urogenital microbiota, susceptibilities not performed per laboratory criteria. (A) 09/24/2024 1:35 PM NUCLEAR MEDICINE OFFICER DTL Urine Culture PSEUDOMONAS AERUGINOSA 10,000-100,000 cfu/mL (A) 09/24/2024 1:35 PM NUCLEAR MEDICINE OFFICER DTL Comment: Gentamicin should not be used for P. aeruginosa. There are no gentamicin breakpoints for P. aeruginosa. Urine (Urine, Midstream) 09/22/2024 8:20 AM NUCLEAR MEDICINE OFFICER 09/22/2024 9:15 AM NUCLEAR MEDICINE OFFICER Comment:Specimen Source Site : Urine Narrative Organism [...] OR DERABLES Final Result Performing Organization Address [facility] [place] [address] * pH, Urine (09/22/2024 8:20 AM NUCLEAR MEDICINE OFFICER) pH, U 5.3 4.5 - 8.0 09/22/2024 9:5 0 AM NUCLEAR MEDICINE OFFICER DT Urine 09/22/2024 8:20 AM NUCLEAR MEDICINE OFFICER 09/22/2024 8:40 AM NUCLEAR MEDICINE OFFICER us Efrain Valadez M.D. LAB URINE ORDERABLES Final Re sult Performing Organization Address [facility] Co de Phone Number [facility] [address] [place], [place] [id number] [place] [address] * (ABNORMAL) Osmolality, Urine (09/22/2024 8:20 AM NUCLEAR MEDICINE OFFICER) Osmolality, U 133(L) 150 - 1150 mOsm/kg 09/22/2024 9:50 AM NUCLEAR MEDICINE OFFICER DT Urine 09/22/2024 8:20 AM NUCLEAR MEDICINE OFFICER 09/22/2024 8:40 AM NUCLEAR MEDICINE OFFICER us Efrain Valadez M.D. LAB URINE ORDERABLES Final Re sult Performing Organization Address [facility] Co de Phone Number [facility] [address] [place] [address], [facility] DTL [facility] [address] [place] [address] * Urinalysis, with Microscopic: Urine, Midstream (09/22/2024 8:20 AM NUCLEAR MEDICINE OFFICER) Source Urine, Urine, Midstream 09/22/2024 8:40 AM NUCLEAR MEDICINE OFFICER DTL Color, U Yellow 09/22/2024 8:40 AM NUCLEAR MEDICINE OFFICER DTL Clarity, U Clear 09/22/2024 8:40 AM NUCLEAR MEDICINE OFFICER DTL Protein, U <4 <26 mg/dL 09/22/2024 9:28 AM NUCLEAR MEDICINE OFFICER DTL Protein/Osmol ality <0.30 <0.42 ratio 09/22/2024 9:50 AM NUCLEAR MEDICINE OFFICER DTL Predicted 24 HR Protein, U <225 <229 mg/24 h 09/22/2024 9:50 AM NUCLEAR MEDICINE OFFICER DTL Predicted Range <910 mg/24 h 09/22/2024 9:50 AM NUCLEAR MEDICINE OFFICER DTL Urine (Urine, Midstream) 09/22/2024 8:20 AM NUCLEAR MEDICINE OFFICER 09/22/2024 8:40 AM NUCLEAR MEDICINE OFFICER us Efrain Valadez M.D. LAB URINE ORDERABLES Final Re sult Performing Organization Address [facility] Co de Phone Number [facility] [address] [place] [address], [facility] DTL [facility] [address] [place] [address] * (ABNORMAL) Basic Metabolic Panel (09/22/2024 8:10 AM NUCLEAR MEDICINE OFFICER) Potassium, S 4.3 3.6 - 5.2 mmol/L 09/22/2024 9:14 AM NUCLEAR MEDICINE OFFICER DTL Sodium, S 142 135 - 145 mmol/L 09/22/2024 9:14 AM NUCLEAR MEDICINE OFFICER DTL Chloride, S 108(H) 98 - 107 mmol/L 09/22/2024 9:14 AM NUCLEAR MEDICINE OFFICER DTL Bicarbonate, S 23 22 - 29 mmol/L 09/22/2024 9:14 AM NUCLEAR MEDICINE OFFICER DTL Anion Gap 11 7 - 15 09/22/2024 9:14 AM NUCLEAR MEDICINE OFFICER DTL BUN (Blood Urea Nitrogen), S 16 6 - 21 mg/dL 09/22/2024 9:14 AM NUCLEAR MEDICINE OFFICER DTL Creatinine 0.76 0.59 - 1.04 mg/dL 09/22/2024 9:14 AM NUCLEAR MEDICINE OFFICER DTL Estimated GFR (eGFR) 85 >=60 mL/min/BSA 09/22/2024 9:14 AM NUCLEAR MEDICINE OFFICER DTL Comment: Estimated GFR calculated using the 2020 CKD_EPI creatinine equation. Calcium, Total, S 9.2 8.8 - 10.2 mg/dL 09/22/2024 9:14 AM NUCLEAR MEDICINE OFFICER DTL Glucose, S 94 70 - 140 mg/dL 09/22/2024 9:14 AM NUCLEAR MEDICINE OFFICER DTL Blood (Blood, Venous) 09/22/2024 8:10 AM NUCLEAR MEDICINE OFFICER 09/22/2024 8:50 AM NUCLEAR MEDICINE OFFICER Efrain Valadez M.D. LAB [place] [address], [facility] [place] [address] * CT ABDOMEN PELVIS WO CON-Outside CT Body (09/20/2024 12:10 PM NUCLEAR MEDICINE OFFICER) Narrative IIMS - 09/22/2024 9:36 AM NUCLEAR MEDICINE OFFICER This order has been created and auto-finalized to support the import of outside images. If available, original interpretation can be found on the Media Tab in Chart Review, in Document Viewer, as an image in QREADS or as an Addendum. If a re-interpretation or overread is required please follow defined workflow. us Provider Not In System IMG CT PROCEDURES Final R esult IIMS NA from Last 3 [address] [place] [id number] [facility] MEDICARE Care Teams Bolt Sorter Relationship Specialty Start Date End Date Elsewhere, Pcp PCP - General Internal Medicine 06/28/22
--- OUTSIDE RECORDS SUMMARY | 2024-10-05 09:00 | XMS_ITS | Encounter Summary ---
Author Organization [facility] Address [address] [place] [address] Care Team Providers Care Cafeteria Helper Name Role Phone Elsewhere, Pcp Primary Care Provider Unavailabl e Encounter Details Date Type Department Care Team (Latest Contact Info) Description 09/22/2024 7:36 AM CONTAINERS SALES REPRESENTATIVE - 09/22/2024 11:59 PM [facility] Hospital Encounter Department of Laboratory Medicine and Pathology, [facility], in [place], [place] [address] [place] [address] Efrain Valadez M.D. [address] [place] [address] Hydronephrosis Discharge Disposition: Home or Self Care Social History Tobacco Use Types Packs/Day Years Used Date Smoking Tobacco: Never Smokeless Tobacco: Never Alcohol Use Standard Drinks/Week Comments Yes 0 (1 standard drink = 0.6 oz pur e alcohol) < [address] [facility] Utilities Answer Date Recorded In the past 12 months has [facility] [employer], [employer], oil, or water [employer] threatened to shut off services in your [...] How often do you attend chur or gnosticism services? More than 4 times per year 06/29/2022 Do you belong to any clubs o r organizations such as advent groups, unions, fraternal or athletic groups, or [...] and heating? Not hard at all 06/29/2022 [facility] - Occupational Stress Questionnaire Answer Date [...] your living situation today? I have a [facility] place to live 02/01/2024 Education Answer Date Recorded What is the highest level of school you have completed or the highest degree you have received? Master's degree (e.g., MA, MS, Renetta, MEd, DEVELOPMENTAL TRAINING COUNSELOR, TICO) 06/29/2022 Comments Unknown Sex and Gender Information Value Date Recorded Sex Assigned at Female 06/29/2022 11:48 AM CDT Legal Sex Female 10:10 PM CONTAINERS SALES REPRESENTATIVE Gender Identity Female 06/29/2022 11:48 AM CDT Sexual Orientation Straight 06/29/2022 11 :48 AM CDT documented as of this encounter Medications at Time of Discharge amoxicillin-pot clavulanate (AUGMENTIN) 875-125 mg per tablet Take 1 tablet by mouth 2 (two) times a day. 12/18/2023 buPROPion XL (WELLBUTRIN XL) 300 mg 24 hr tablet Take 300 mg by mouth daily. 04/30/2022 cholecalciferol, vitamin D3, (cholecalciferol) 25 mcg (1,000 Unit) tablet Take 25 mcg by mouth daily. Calcium and Vit D estradioL (VAGIFEM) 10 mcg vaginal tablet INSERT ONE TABLET VAGINALLY TWICE A WEEK 04/30/2022 hydrocortisone-ac etic acid (ACETASOL HC) 1-2 % otic solution Administer 3 drops into each ear 2 (two) times a day. If flared, can mix with ketoconazole cream and apply via qtip 10 mL 3 02/05/2024 ketoconazole (NIZORAL) 2 % cream Apply 1 Application topically 2 (two) times a day. Apply to ears if itchy, red or flaking. 15 g 3 02/05/2024 levothyroxine (SYNTHROID, LEVOTHROID) 100 mcg tablet Take 100 mcg by mouth daily. 04/30/2022 Paxlovid 300 mg (150 mg x 2)-100 mg dose pack Take 2 nirmatrelvir 150 mg pink-oval tablets and 1 ritonavir 100 mg white-oval tablet together twice daily for 5 days.* 01/19/2024 simvastatin (ZOCOR) 10 mg tablet Take 10 mg by mouth at bedtime. 04/30/2022 tamsulosin (Flomax) 0.4 mg 24 hr capsule Take 1 capsule (0.4 mg total) by mouth daily. Take daily until stone passage 30 capsule 09/22/2024 documented as of this encounter Plan of Treatment Upcoming Encounters Date Type Department Care Team (Latest Contact Info) Description 10/07/2024 6:03 PM CONTAINERS SALES REPRESENTATIVE Hospital Encounter RST RO 01 4 AM ADMIT [address] [place] [address] Efrain Valadez M.D. [address] [place] [address] 10/07/2024 6:03 PM CONTAINERS SALES REPRESENTATIVE - 10/07/2024 8:04 PM CONTAINERS SALES REPRESENTATIVE Surgery [facility] MAIN OR [address] [place] [address] Efrain Valadez M.D. [address] [place] [address] URETEROSCOPY WITH LASER LITHOTRIPSY, LEFT. Scheduled Procedures Name Priority Associated Diagnoses Date/Ti me URETEROSCOPY WITH LASER LITHOTRIPSY [facility] Nephrolithiasis 10/07/2024 6:03 PM CONTAINERS SALES REPRESENTATIVE CYSTOURETHROSCOPY WITH PLACEMENT URETERAL STENT [facility] Nephrolithiasis 10/07/2024 6:03 PM CONTAINERS SALES REPRESENTATIVE RETROGRADE PYELOGRAM [facility] Nephrolithiasis 10/07/2024 6:03 PM CONTAINERS SALES REPRESENTATIVE documented as of this encounter Procedures Procedure Name Priority Date/Time Associated Diagnosis Comments BASIC METABOLIC PANEL, S/P Routine 09/22/2024 8:10 AM CONTAINERS SALES REPRESENTATIVE Hydronephrosis documented in this encounter Results * (ABNORMAL) Basic Metabolic Panel (09/22/2024 8:10 AM CONTAINERS SALES REPRESENTATIVE) Potassium, S 4.3 3.6 - 5.2 mmol/L 09/22/2024 9:14 AM CONTAINERS SALES REPRESENTATIVE DTL Sodium, S 142 135 - 145 mmol/L 09/22/2024 9:14 AM CONTAINERS SALES REPRESENTATIVE DTL Chloride, S 108(H) 98 - 107 mmol/L 09/22/2024 9:14 AM CONTAINERS SALES REPRESENTATIVE DTL Bicarbonate, S 23 22 - 29 mmol/L 09/22/2024 9:14 AM CONTAINERS SALES REPRESENTATIVE DTL Anion Gap 11 7 - 15 09/22/2024 9:14 AM CONTAINERS SALES REPRESENTATIVE DTL BUN (Blood Urea Nitrogen), S 16 6 - 21 mg/dL 09/22/2024 9:14 AM CONTAINERS SALES REPRESENTATIVE DTL Creatinine 0.76 0.59 - 1.04 mg/dL 09/22/2024 9:14 AM CONTAINERS SALES REPRESENTATIVE DTL Estimated GFR (eGFR) 85 >=60 mL/min/BSA 09/22/2024 9:14 AM CONTAINERS SALES REPRESENTATIVE DTL Comment: Estimated GFR calculated using the 2020 CKD_EPI creatinine equation. Calcium, Total, S 9.2 8.8 - 10.2 mg/dL 09/22/2024 9:14 AM CONTAINERS SALES REPRESENTATIVE DTL Glucose, S 94 70 - 140 mg/dL 09/22/2024 9:14 AM CONTAINERS SALES REPRESENTATIVE DTL Blood (Blood, Venous) 09/22/2024 8:10 AM CONTAINERS SALES REPRESENTATIVE 09/22/2024 8:50 AM CONTAINERS SALES REPRESENTATIVE us Efrain Valadez M.D. LAB BLOOD ADD-ON Final Result [facility] [address] [place] [address], [facility] DTL [facility] [address] [place] [address] documented in this encounter Visit Diagnoses Diagnosis Hydronephrosis [facility] Nephrolithiasis [facility] Nephrolithiasis documented in this encounter Care Teams Cafeteria Helper Relationship Specialty Start Date End Date Elsewhere, Pcp PCP - General Internal Medicine 06/28/22 documented as of this encounter
--- OUTSIDE RECORDS SUMMARY | 2024-10-05 09:00 | XMS_ITS | Encounter Summary ---
Author Organization [facility] Address [address] [place] [address] Care Team Providers Care Pickle Water Pump Operator Name Role Phone Elsewhere, Pcp Primary Care Provider Unavailabl e Encounter Details Date Type Department Care Team (Late st Contact Info) Description 09/22/2024 Clinical Communication Department of Urology in [place], [place] [address] [place] [address] Efrain Valadez M.D. [address] [place] [phone] Social History Tobacco Use Types Packs/Day Years Used Date Smoking Tobacco: Never Smokeless Tobacco: Never Alcohol Use Standard Drinks/Week Comments Yes 0 (1 standard drink = 0.6 oz pur e alcohol) < 4 per month [facility] Utilities Answer Date Recorded In the past 12 months has e [employer], gas, oil, or water [employer] threatened to shut off services in your [...] often do you attend chur ch or tenriism services? More than 4 times per year 06/29/2022 Do you belong to any clubs o r organizations such as pentecostal groups, unions, fraternal [...] and heating? Not hard at all 06/29/2022 [facility] of Occupat ional Health - Occupational Stress [...] your living situation today? I have a [facility] place to live 02/01/2024 Education Answer Date Recorded What is the highest level of school you have completed or the highest degree you have received? Master's degree (e.g., MA, MS, Renetta, MEd, MILK TANKER DRIVER, TICO) 06/29/2022 Comments Unknown Sex and Gender Information Value Date Recorded Sex Assigned at Female 06/29/2022 11:48 AM CDT Legal Sex Female 10:10 PM RN PSYCHIATRIC Gender Identity Female 06/29/2022 11:48 AM CDT Sexual Orientation Straight 06/29/2022 11 :48 AM CDT documented as of this encounter Plan of Treatment Upcoming Encounters Date Type Department Care Team (Latest Contact Info) Description 10/07/2024 6:03 PM RN PSYCHIATRIC Hospital Encounter [facility] 01 4 AM ADMIT [address] [place] [address] Efrain Valadez M.D. [address] [place] [address] 10/07/2024 6:03 PM RN PSYCHIATRIC - 10/07/2024 8:04 PM RN PSYCHIATRIC Surgery RST [facility] MAIN OR [address] [place] [phone] Efrain Valadez M.D. [address] [place] [address] URETEROSCOPY WITH LASER LITHOTRIPSY, LEFT. Scheduled Procedures Name Priority Associated Diagnoses Date/Ti me URETEROSCOPY WITH LASER LITHOTRIPSY [facility] Nephrolithiasis 10/07/2024 6:03 PM RN PSYCHIATRIC CYSTOURETHROSCOPY WITH PLACEMENT URETERAL STENT [facility] Nephrolithiasis 10/07/2024 6:03 PM RN PSYCHIATRIC RETROGRADE PYELOGRAM [facility] Nephrolithiasis 10/07/2024 6:03 PM RN PSYCHIATRIC documented as of this encounter Visit Diagnoses Not on filedocumented in this encounter Care Teams Pickle Water Pump Operator Relationship Specialty Start Date End Date Elsewhere, Pcp PCP - General Internal Medicine 06/28/22 documented as of this encounter
--- OUTSIDE RECORDS SUMMARY | 2024-10-05 09:00 | XMS_ITS | Encounter Summary ---
Author Organization [facility] Address [address] [place] [address] Care Team Providers Care Office Support Associate Name Role Phone Elsewhere, Pcp Primary Care Provider Unavailabl e Encounter Details Date Type Department Care Team (Late st Contact Info) Description 09/22/2024 Documentation Preoperative Evaluation Center in [place], [place] [address] [place] [phone] Valery Hinton MPAS, P.A.-C. [address] [place] [phone] Social History Tobacco Use Types Packs/Day Years Used Date Smoking Tobacco: Never Smokeless Tobacco: Never Alcohol Use Standard Drinks/Week Comments Yes 0 (1 standard drink = 0.6 oz pur e alcohol) < 4 per month [facility] Utilities Answer Date Recorded In the past 12 months has e [employer], gas, oil, or water [employer] threatened to shut off services in your [...] often do you attend chur ch or protestant services? More than 4 times per year 06/29/2022 Do you belong to any clubs o r organizations such as moravian groups, unions, fraternal or athletic groups, or [...] and heating? Not hard at all 06/29/2022 [facility] of Occupat ionky Health - Occupational Stress Questionnaire Answer Date [...] your living situation today? I have a [facility] place to live 02/01/2024 Education Answer Date Recorded What is the highest level of school you have completed or the highest degree you have received? Master's degree (e.g., MA, MS, Renetta, MEd, LEAD APPLICATIONS DEVELOPER, TICO) 06/29/2022 Comments Unknown Sex and Gender Information Value Date Recorded Sex Assigned at Female 06/29/2022 11:48 AM CDT Legal Sex Female 10:10 PM BLOCKING MACHINE OPERATOR SECOND Gender Identity Female 06/29/2022 11:48 AM CDT Sexual Orientation Straight 06/29/2022 11 :48 AM CDT documented as of this encounter Progress Notes * Valery Hinton MPAS, P.A.-C. - 09/22/2024 11:56 AM CST This is a [facility] pre-screening chart review to ascertain if a [facility] appointment is necessary. A comprehensive review of [facility] EMR was performed. We reviewed Care Everywhere and Documents Viewer or primary care or specialty care notes, laboratory testing, cardiac testing with in the last6 months and prior anesthesia encounters. Based on the EMR review, the patient is an acceptable candidate for the planned procedure and may proceed without additional preoperative evaluation or testing. The patient was not seen in [facility]. Please call [phone] ([facility] Doc of the day) weekdays between 8 am and 4:30 pm with any questions. KING MACHINE OPERATOR SECOND documented in this encounter Plan of Treatment Upcoming Encounters Date Type Department Care Team (Latest Contact Info) Description 10/07/2024 6:03 PM BLOCKING MACHINE OPERATOR SECOND Hospital Encounter [facility] 01 4 AM ADMIT [address] [place] [address] Efrain Valadez M.D. [address] [place] [address] 10/07/2024 6:03 PM BLOCKING MACHINE OPERATOR SECOND - 10/07/2024 8:04 PM BLOCKING MACHINE OPERATOR SECOND Surgery RST RO MAIN OR [address] [place] [address] Efrain Valadez M.D. [address] [place] [address] URETEROSCOPY WITH LASER LITHOTRIPSY, LEFT. Scheduled Procedures Name Priority Associated Diagnoses Date/Ti me URETEROSCOPY WITH LASER LITHOTRIPSY [facility] Nephrolithiasis 10/07/2024 6:03 PM BLOCKING MACHINE OPERATOR SECOND CYSTOURETHROSCOPY WITH PLACEMENT URETERAL STENT [facility]re[facility] Nephrolithiasis 10/07/2024 6:03 PM BLOCKING MACHINE OPERATOR SECOND RETROGRADE PYELOGRAM [facility] Ure[facility] Nephrolithiasis 10/07/2024 6:03 PM BLOCKING MACHINE OPERATOR SECOND documented as of this encounter Visit Diagnoses Not on filedocumented in this encounter Care Teams Office Support Associate Relationship Specialty Start Date End Date Elsewhere, Pcp PCP - General Internal Medicine 06/28/22 documented as of this encounter
--- OUTSIDE RECORDS SUMMARY | 2024-10-05 09:00 | XMS_ITS | Encounter Summary ---
Author Organization [facility] Address [address] [place] [address] Care Team Providers Care Cigar Bander Name Role Phone Elsewhere, Pcp Primary Care Provider Unavailabl e Encounter Details Date Type Department Care Team (Late st Contact Info) Description 09/24/2024 Clinical Communication Department of Urology in [place], [place] [address] [place] [address] Mohini Larson M.D. [address] [place] [phone] Social History Tobacco Use Types Packs/Day Years Used Date Smoking Tobacco: Never Smokeless Tobacco: Never Alcohol Use Standard Drinks/Week Comments Yes 0 (1 standard drink = 0.6 oz pur e alcohol) < 4 per month [facility] Utilities Answer Date Recorded In the past 12 months has e [employer], gas, oil, or water [employer] threatened to shut off services in your [...] often do you attend chur ch or denominational services? More than 4 times per year 06/29/2022 Do you belong to any clubs o r organizations such as rastafarian groups, unions, fraternal or athletic groups, or [...] and heating? Not hard at all 06/29/2022 [facility] of Occupat ional Health - Occupational [...] your living situation today? I have a [facility] place to live 02/01/2024 Education Answer Date Recorded What is the highest level of school you have completed or the highest degree you have received? Master's degree (e.g., MA, MS, Renetta, MEd, DIRECTOR SECURITY MANAGEMENT, TICO) 06/29/2022 Comments Unknown Sex and Gender Information Value Date Recorded Sex Assigned at Female 06/29/2022 11:48 AM CDT Legal Sex Female 10:10 PM CHAINSAW MECHANIC Gender Identity Female 06/29/2022 11:48 AM CDT Sexual Orientation Straight 06/29/2022 11 :48 AM CDT documented as of this encounter Plan of Treatment Upcoming Encounters Date Type Department Care Team (Latest Contact Info) Description 10/07/2024 6:03 PM CHAINSAW MECHANIC Hospital Encounter [facility] 01 4 AM ADMIT [address] [place] [address] Efrain Valadez M.D. [address] [place] [phone] 10/07/2024 6:03 PM CHAINSAW MECHANIC - 10/07/2024 8:04 PM CHAINSAW MECHANIC Surgery [facility] MAIN OR [address] [place] [phone] Efrain Valadez M.D. [address] [place] [address] URETEROSCOPY WITH LASER LITHOTRIPSY, LEFT. Scheduled Procedures Name Priority Associated Diagnoses Date/Ti me URETEROSCOPY WITH LASER LITHOTRIPSY [facility]re[facility] Nephrolithiasis 10/07/2024 6:03 PM CHAINSAW MECHANIC CYSTOURETHROSCOPY WITH PLACEMENT URETERAL STENT [facility]re[facility] Nephrolithiasis 10/07/2024 6:03 PM CHAINSAW MECHANIC RETROGRADE PYELOGRAM [facility] Ure[facility] Nephrolithiasis 10/07/2024 6:03 PM CHAINSAW MECHANIC documented as of this encounter Visit Diagnoses Not on filedocumented in this encounter Care Teams Cigar Bander Relationship Specialty Start Date End Date Elsewhere, Pcp PCP - General Internal Medicine 06/28/22 documented as of this encounter
--- OUTSIDE RECORDS SUMMARY | 2024-10-05 09:00 | XMS_ITS | Encounter Summary ---
Author Organization [facility] Address [address] [place] [address] Care Team Providers Care Chemical Engraver Name Role Phone Elsewhere, Pcp Primary Care Provider Unavailabl e Encounter Details Date Type Department Care Team (Latest Contact Info) Description 09/22/2024 7:36 AM INSTRUMENT REPAIR SPECIALIST - 09/22/2024 11:59 PM [facility] Hospital Encounter Department of Laboratory Medicine and Pathology, [facility], in [place], [place] [address] [place] [address] Efrain Valadez M.D. [address] [place] [address] Hydronephrosis Discharge Disposition: Home or Self Care Social History Tobacco Use Types Packs/Day Years Used Date Smoking Tobacco: Never Smokeless Tobacco: Never Alcohol Use Standard Drinks/Week Comments Yes 0 (1 standard drink = 0.6 oz pur e alcohol) < 4 per month [facility] Utilities Answer Date Recorded In the past 12 months has [facility] [employer], [employer], oil, or water [employer] threatened to shut off services in your [...] How often do you attend chur or taoist services? More than 4 times per year 06/29/2022 Do you belong to any clubs o r organizations such as lutheran groups, unions, fraternal or athletic groups, or [...] and heating? Not hard at all 06/29/2022 [facility] of Occupat ionnm Health - Occupational Stress Questionnaire Answer Date [...] your living situation today? I have a [facility] place to live 02/01/2024 Education Answer Date Recorded What is the highest level of school you have completed or the highest degree you have received? Master's degree (e.g., MA, MS, Renetta, MEd, PROMOTIONAL DEMONSTRATOR, TICO) 06/29/2022 Comments Unknown Sex and Gender Information Value Date Recorded Sex Assigned at Female 06/29/2022 11:48 AM CDT Legal Sex Female 10:10 PM INSTRUMENT REPAIR SPECIALIST Gender Identity Female 06/29/2022 11:48 AM CDT [...] (Latest Contact Info) Description 10/07/2024 6:03 PM INSTRUMENT REPAIR SPECIALIST Hospital Encounter [facility]ST RO 01 4 AM ADMIT [address] [place] [address] Efrain Valadez M.D. [address] [place] [address] 10/07/2024 6:03 PM INSTRUMENT REPAIR SPECIALIST - 10/07/2024 8:04 PM INSTRUMENT REPAIR SPECIALIST Surgery [facility] MAIN OR [address] [place] [address] Efrain Valadez M.D. [address] [place] [address] URETEROSCOPY WITH LASER LITHOTRIPSY, LEFT. Scheduled Procedures Name Priority Associated Diagnoses Date/Ti me URETEROSCOPY WITH LASER LITHOTRIPSY [facility]re[facility] Nephrolithiasis 10/07/2024 6:03 PM INSTRUMENT REPAIR SPECIALIST CYSTOURETHROSCOPY WITH PLACEMENT URETERAL STENT [facility]re[facility] Nephrolithiasis 10/07/2024 6:03 PM INSTRUMENT REPAIR SPECIALIST RETROGRADE PYELOGRAM [facility]re[facility] Nephrolithiasis 10/07/2024 6:03 PM INSTRUMENT REPAIR SPECIALIST documented as of this encounter Procedures Procedure Name Priority Date/Time Associated Diagnosis Comments DIPSTICK, U Routine 09/22/2024 8:20 AM INSTRUMENT REPAIR SPECIALIST MICROSCOPIC AUTOMATED Routine 09/22/2024 8:20 AM INSTRUMENT REPAIR SPECIALIST BACTERIAL CULTURE, AEROBIC + SUSC, URINE Routine 09/22/2024 8:20 AM INSTRUMENT REPAIR SPECIALIST Hydronephrosis PH, U Routine 09/22/2024 8:20 AM INSTRUMENT REPAIR SPECIALIST OSMOLALITY, U Routine 09/22/2024 8:20 AM INSTRUMENT REPAIR SPECIALIST URINALYSIS WITH MICROSCOPIC Routine 09/22/2024 8:20 AM INSTRUMENT REPAIR SPECIALIST Hydronephrosis documented in this encounter Results * Dipstick, Urine (09/22/2024 8:20 AM INSTRUMENT REPAIR SPECIALIST) Hemoglobin, QL, U Negative Negative 09/22/2024 9:17 AM INSTRUMENT REPAIR SPECIALIST DTL Leukocyte Esterase, U Negative Negative 09/22/2024 9:17 AM INSTRUMENT REPAIR SPECIALIST DTL Nitrite, U Negative Negative 09/22/2024 9:17 AM INSTRUMENT REPAIR SPECIALIST DTL Ketone, U Negative Negative mg/dL 09/22/2024 9:17 AM INSTRUMENT REPAIR SPECIALIST DTL Glucose, U Negative Negative mg/dL 09/22/2024 9:17 AM INSTRUMENT REPAIR SPECIALIST DTL Urine 09/22/2024 8:20 AM INSTRUMENT REPAIR SPECIALIST 09/22/2024 8:40 AM INSTRUMENT REPAIR SPECIALIST us Efrain Valadez M.D. LAB URINE ORDERABLES Final Re sult [facility] [address] [place] [address], [facility] DTL [facility] [address] [place] [address] * (ABNORMAL) Osmolality, Urine (09/22/2024 8:20 AM INSTRUMENT REPAIR SPECIALIST) Osmolality, U 133(L) 150 - 1150 mOsm/kg 09/22/2024 9:50 AM INSTRUMENT REPAIR SPECIALIST DTL Urine 09/22/2024 8:20 AM INSTRUMENT REPAIR SPECIALIST 09/22/2024 8:40 AM INSTRUMENT REPAIR SPECIALIST us Efrain Valadez M.D. LAB URINE ORDERABLES Final Re sult Performing Organization Address [facility]/ZIP Co de Phone Number [facility] [address] [place] [address] * pH, Urine (09/22/2024 8:20 AM INSTRUMENT REPAIR SPECIALIST) pH, U 5.3 4.5 - 8.0 09/22/2024 9:5 0 AM INSTRUMENT REPAIR SPECIALIST DT Urine 09/22/2024 8:20 AM INSTRUMENT REPAIR SPECIALIST 09/22/2024 8:40 AM INSTRUMENT REPAIR SPECIALIST us Efrain Valadez M.D. LAB URINE ORDERABLES Final Re sult Performing Organization Address City/[facility] Co de Phone Number [facility] [address] [place] [address] * Microscopic Automated (09/22/2024 8:20 AM INSTRUMENT REPAIR SPECIALIST) Microscopy Normal 09/22/2024 9:17 AM INSTRUMENT REPAIR SPECIALIST DTL RBC <3 <3 /hpf 09/22/2024 9:17 AM INSTRUMENT REPAIR SPECIALIST DTL WBC None Seen /hpf 09/22/2024 9:17 AM INSTRUMENT REPAIR SPECIALIST DTL Comment: ----REFERENCE VALUE---- <4 (Males) <11 (Females) Urine 09/22/2024 8:20 AM INSTRUMENT REPAIR SPECIALIST 09/22/2024 8:40 AM INSTRUMENT REPAIR SPECIALIST us Efrain Valadez M.D. LAB URINE ORDERABLES Final Re sult Performing Organization Address City/[facility]/ZIP Co de Phone Number [facility] [address] [place] [address], [facility] DTL [facility] [address] [place] [address] * (ABNORMAL) Bacterial Culture, Aerobic + Susceptibility, Urine (09/22/2024 8:20 AM INSTRUMENT REPAIR SPECIALIST) Urine Culture With urogenital microbiota, susceptibilities not performed per laboratory criteria. (A) 09/24/2024 1:35 PM INSTRUMENT REPAIR SPECIALIST DTL Urine Culture PSEUDOMONAS AERUGINOSA 10,000-100,000 cfu/mL (A) 09/24/2024 1:35 PM INSTRUMENT REPAIR SPECIALIST DTL Comment: Gentamicin should not be used for P. aeruginosa. There are no gentamicin breakpoints for P. aeruginosa. Urine (Urine, Midstream) 09/22/2024 8:20 AM INSTRUMENT REPAIR SPECIALIST 09/22/2024 9:15 AM INSTRUMENT REPAIR SPECIALIST Comment:Specimen Source Site : Urine Narrative Organism [...] OR DERABLES Final Result Performing Organization Address City/[facility]/ZIP Co de Phone Number [facility] [address] [place] [address], [facility] DTL [facility] [address] [place] [address] * Urinalysis, with Microscopic: Urine, Midstream (09/22/2024 8:20 AM INSTRUMENT REPAIR SPECIALIST) Source Urine, Urine, Midstream 09/22/2024 8:40 AM INSTRUMENT REPAIR SPECIALIST DTL Color, U Yellow 09/22/2024 8:40 AM INSTRUMENT REPAIR SPECIALIST DTL Clarity, U Clear 09/22/2024 8:40 AM INSTRUMENT REPAIR SPECIALIST DTL Protein, U <4 <26 mg/dL 09/22/2024 9:28 AM INSTRUMENT REPAIR SPECIALIST DTL Protein/Osmol ality <0.30 <0.42 ratio 09/22/2024 9:50 AM INSTRUMENT REPAIR SPECIALIST DTL Predicted 24 HR Protein, U <225 <229 mg/24 h 09/22/2024 9:50 AM INSTRUMENT REPAIR SPECIALIST DTL Predicted Range <910 mg/24 h 09/22/2024 9:50 AM INSTRUMENT REPAIR SPECIALIST DTL Urine (Urine, Midstream) 09/22/2024 8:20 AM INSTRUMENT REPAIR SPECIALIST 09/22/2024 8:40 AM INSTRUMENT REPAIR SPECIALIST us Efrain Valadez M.D. LAB URINE ORDERABLES Final Re sult [facility] [address] [place] [address], [facility] DTL [facility] [address] [place] [address] documented in this encounter Visit Diagnoses Diagnosis Hydronephrosis [facility] Ure[facility] Nephrolithiasis [facility]re[facility] Nephrolithiasis documented in this encounter Care Teams Chemical Engraver Relationship Specialty Start Date End Date Elsewhere, Pcp PCP - General Internal Medicine 06/28/22 documented as of this encounter
--- OUTSIDE RECORDS SUMMARY | 2024-10-05 09:00 | XMS_ITS | Encounter Summary ---
Author Organization [facility] Address [address] [place] [address] Care Team Providers Care Business Risk Analyst Name Role Phone Elsewhere, Pcp Primary Care Provider Unavailabl e Encounter Details Date Type Department Care Team (Late st Contact Info) Description 09/21/2024 Clinical Communication Department of Urology in [place], [place] [address] [place] [address] Efrain Valadez M.D. [address] [place] [phone] Social History Tobacco Use Types Packs/Day Years Used Date Smoking Tobacco: Never Smokeless Tobacco: Never Alcohol Use Standard Drinks/Week Comments Yes 0 (1 standard drink = 0.6 oz pur e alcohol) < 4 per month [facility] Utilities Answer Date Recorded In the past 12 months has e [employer], gas, oil, or water [employer] threatened to shut off services in your [...] often do you attend chur ch or amish services? More than 4 times per year 06/29/2022 Do you belong to any clubs o r organizations such as buddhism groups, unions, fraternal [...] and heating? Not hard at all 06/29/2022 [facility] of Occupat ional Health - Occupational [...] your living situation today? I have a [facility] place to live 02/01/2024 Education Answer Date Recorded What is the highest level of school you have completed or the highest degree you have received? Master's degree (e.g., MA, MS, Renetta, MEd, SHIRT OPERATOR, TICO) 06/29/2022 Comments Unknown Sex and Gender Information Value Date Recorded Sex Assigned at Female 06/29/2022 11:48 AM CDT Legal Sex Female 10:10 PM MOLDER CLOSED MOLDS Gender Identity Female 06/29/2022 11:48 AM CDT Sexual Orientation Straight 06/29/2022 11 :48 AM CDT documented as of this encounter Plan of Treatment Upcoming Encounters Date Type Department Care Team (Latest Contact Info) Description 10/07/2024 6:03 PM MOLDER CLOSED MOLDS Hospital Encounter [facility] 01 4 AM ADMIT [address] [place] [address] Efrain Valadez M.D. [address] [place] [address] 10/07/2024 6:03 PM MOLDER CLOSED MOLDS - 10/07/2024 8:04 PM MOLDER CLOSED MOLDS Surgery RST RO MAIN OR [address] [place] [phone] Efrain Valadez M.D. [address] [place] [address] URETEROSCOPY WITH LASER LITHOTRIPSY, LEFT. Scheduled Procedures Name Priority Associated Diagnoses Date/Ti me URETEROSCOPY WITH LASER LITHOTRIPSY [facility] Ureteral Nephrolithiasis 10/07/2024 6:03 PM MOLDER CLOSED MOLDS CYSTOURETHROSCOPY WITH PLACEMENT URETERAL STENT [facility] Ureteral Nephrolithiasis 10/07/2024 6:03 PM MOLDER CLOSED MOLDS RETROGRADE PYELOGRAM [facility] Ureteral Nephrolithiasis 10/07/2024 6:03 PM MOLDER CLOSED MOLDS documented as of this encounter Results * (ABNORMAL) Bacterial Culture, Aerobic + Susceptibility, Urine (09/22/2024 8:20 AM MOLDER CLOSED MOLDS) Urine Culture With urogenital microbiota, susceptibilities not performed per laboratory criteria. (A) 09/24/2024 1:35 PM MOLDER CLOSED MOLDS DTL Urine Culture PSEUDOMONAS AERUGINOSA 10,000-100,000 cfu/mL (A) 09/24/2024 1:35 PM MOLDER CLOSED MOLDS DTL Comment: Gentamicin should not be used for P. aeruginosa. There are no gentamicin breakpoints for P. aeruginosa. Urine (Urine, Midstream) 09/22/2024 8:20 AM MOLDER CLOSED MOLDS 09/22/2024 9:15 AM MOLDER CLOSED MOLDS Comment:Specimen Source Site : Urine Narrative Organism [...] OR DERABLES Final Result Performing Organization Address [facility] Co de Phone Number [facility] [address] [place] [address], [facility] [address] [place] [address] * Urinalysis, with Microscopic: Urine, Midstream (09/22/2024 8:20 AM MOLDER CLOSED MOLDS) Source Urine, Urine, Midstream 09/22/2024 8:40 AM MOLDER CLOSED MOLDS DTL Color, U Yellow 09/22/2024 8:40 AM MOLDER CLOSED MOLDS DTL Clarity, U Clear 09/22/2024 8:40 AM MOLDER CLOSED MOLDS DTL Protein, U <4 <26 mg/dL 09/22/2024 9:28 AM MOLDER CLOSED MOLDS DTL Protein/Osmol ality <0.30 <0.42 ratio 09/22/2024 9:50 AM MOLDER CLOSED MOLDS DTL Predicted 24 HR Protein, U <225 <229 mg/24 h 09/22/2024 9:50 AM MOLDER CLOSED MOLDS DTL Predicted Range <910 mg/24 h 09/22/2024 9:50 AM MOLDER CLOSED MOLDS DTL Urine (Urine, Midstream) 09/22/2024 8:20 AM MOLDER CLOSED MOLDS 09/22/2024 8:40 AM MOLDER CLOSED MOLDS us Efrain Valadez M.D. LAB URINE ORDERABLES Final Re sult Performing Organization Address City/[facility]/ZIP Co de Phone Number [facility] [address] [place] [address], [facility] [address] [place] [address] * (ABNORMAL) Basic Metabolic Panel (09/22/2024 8:10 AM MOLDER CLOSED MOLDS) Potassium, S 4.3 3.6 - 5.2 mmol/L 09/22/2024 9:14 AM MOLDER CLOSED MOLDS DTL Sodium, S 142 135 - 145 mmol/L 09/22/2024 9:14 AM MOLDER CLOSED MOLDS DTL Chloride, S 108(H) 98 - 107 mmol/L 09/22/2024 9:14 AM MOLDER CLOSED MOLDS DTL Bicarbonate, S 23 22 - 29 mmol/L 09/22/2024 9:14 AM MOLDER CLOSED MOLDS DTL Anion Gap 11 7 - 15 09/22/2024 9:14 AM MOLDER CLOSED MOLDS DTL BUN (Blood Urea Nitrogen), S 16 6 - 21 mg/dL 09/22/2024 9:14 AM MOLDER CLOSED MOLDS DTL Creatinine 0.76 0.59 - 1.04 mg/dL 09/22/2024 9:14 AM MOLDER CLOSED MOLDS DTL Estimated GFR (eGFR) 85 >=60 mL/min/BSA 09/22/2024 9:14 AM MOLDER CLOSED MOLDS DTL Comment: Estimated GFR calculated using the 2020 CKD_EPI creatinine equation. Calcium, Total, S 9.2 8.8 - 10.2 mg/dL 09/22/2024 9:14 AM MOLDER CLOSED MOLDS DTL Glucose, S 94 70 - 140 mg/dL 09/22/2024 9:14 AM MOLDER CLOSED MOLDS DTL Blood (Blood, Venous) 09/22/2024 8:10 AM MOLDER CLOSED MOLDS 09/22/2024 8:50 AM MOLDER CLOSED MOLDS Efrain Valadez M.D. LAB BLOOD ADD-ON Final Result [facility] [address] [place] [address], [facility] [address] [place] [address] documented in this encounter Visit Diagnoses Diagnosis Hydronephrosis- Primary [facility] Ureteral Nephrolithiasis [facility] Ureteral Nephrolithiasis documented in this encounter Care Teams Business Risk Analyst Relationship Specialty Start Date End Date Elsewhere, Pcp PCP - General Internal Medicine 06/28/22 documented as of this encounter
--- OUTSIDE RECORDS SUMMARY | 2024-10-05 09:00 | XMS_ITS | Encounter Summary ---
Author Organization [facility] Address [address] [place] [address] Care Team Providers Care Industrial Illuminating Engineer Name Role Phone Elsewhere, Pcp Primary Care Provider Unavailabl e Reason for Referral * MRI/CAT/PET Scan (Routine) - Authorized Specialty Diagnoses / Procedures Referred By Pascale lema Referred To Contact Radiology Diagnoses Nephrolithiasis Procedures CT Abdomen Pelvis without IV Contrast Mohini Larson M.D. 200 [place] [phone] Phone: tel: fax: [facility] Referral ID Status Reason Start Date Expiration Date V isits Requested Visits Authorized [id number] Authorized 09/22/2024 09/22/2025 1 1 ESTATE LEGAL SECRETARY Reason for Visit * Appointment Request (Routine) - Closed Specialty Diagnoses / Procedures Referred By Pascale lema Referred To Contact Urology Diagnoses Hydronephrosis Referral ID Status Reason Start Date Expiration Date Visits Re quested Visits Authorized [id number] Closed 09/21/2024 09/21/2025 1 1 Encounter Details Date Type Department Care Team (Latest Contact Info) Description 09/22/2024 10:00 AM REAL ESTATE LEGAL SECRETARY Comprehensive Visit Department of Urology in [place], [place] [address] [place] [address] [phone] Efrain Valadez M.D. [address] [place] [address] [phone] Nephrolithiasis (Primary Dx) Social History Tobacco Use Types Packs/Day Years Used Date Smoking Tobacco: Never Smokeless Tobacco: Never Alcohol Use Standard Drinks/Week Comments Yes 0 (1 standard drink = 0.6 oz pur e alcohol) < 4 per month [facility] Utilities Answer Date Recorded In the past 12 months has e electric, gas, oil, or water company threatened to shut off services in your [...] often do you attend chur ch or sikh services? More than 4 times per year 06/29/2022 Do you belong to any clubs o r organizations such as synagogue groups, unions, fraternal or athletic groups, or [...] and heating? Not hard at all 06/29/2022 [facility] - Occupational Stress Questionnaire Answer Date Recorded [...] your living situation today? I have a [facility] place to live 02/01/2024 Education Answer Date Recorded What is the highest level of school you have completed or the highest degree you have received? Master's degree (e.g., MA, MS, Renetta, MEd, CLOTH EXAMINER, TICO) 06/29/2022 Comments Unknown Sex and Gender Information Value Date Recorded Sex Assigned at Female 06/29/2022 11:48 AM CDT Legal Sex Female 10:10 PM REAL ESTATE LEGAL SECRETARY Gender Identity Female 06/29/2022 11:48 AM CDT Sexual Orientation Straight 06/29/2022 11 :48 AM CDT documented as of this encounter Progress Notes * Bette Zaidi R.N. - 09/22/2024 10:00 AM CST CHIEF COMPLAINT Nephrolithiasis IMPRESSION/PLAN Leeann Weir is a very pleasant 69 y.o. here for a visit with Dr. Valadez. Patient is in need of a Left URS with stent placement at [facility], patient has selected 10/07 for their surgical date. Patient will be outpatient. Educated will need a tow truck driver. Anesthesia: Patient has been cleared by Anesthesia on 09/22 Blood thinners: None Consent form: Dr. Mohini Larson and Dr. Efrain Valadez saw the patient and discussed risks, benefits, and the surgical procedure and consent was signed in nursing presence.. Urines: Patient had urines done on 09/22 and results are still pending. Diabetes medications or weight loss medications: N/A. Antibiotic: Patient will be called if culture is positive to start antibiotic. Will also receive antibiotic at time of surgery. Surgical checklist: Surgical procedural checklist reviewed with patient including how they will receive their report time report time. Additionally NPO guidelines reviewed with patient which include nothing to eat after midnight but may have clear liquids up to two hours prior to listing time. Patient educated that it is recommended to have someone accompany them to their procedure to drive them home following their hospitalization. Patient verbalized understanding. All questions answered to patient satisfaction. Please see Dr. Larson' and Dr. Valadez's note for additional details. ESTATE LEGAL SECRETARY documented in this encounter Consult Notes * Mohini Larson M.D. - 09/22/2024 10:00 AM CST Images from the original note were not included. SUBJECTIVE The patient was seen today for nephrolithiasis REQUESTING PROVIDER No ref. provider found REASON FOR CONSULT Nephrolithiasis HISTORY OF PRESENT ILLNESS Ms. Weir is a pleasant 69 y.o. year old female who presents for further evaluation and managementof nephrolithiasis. This is the patient's 1st stone episode. She recently presented to the emergency department on 09/20/2024 with left flank pain and was foundto have a 3 mm left UVJ stone with upstream mild hydroureteronephrosis and perinephric free fluid filled concerning for either reactive fluid versus forniceal rupture. Labs: 09/22/24 - Cr 0.76; UA negative (RBC <3, no WBC, negative nitrite/LE) Stone analysis: None Most recent imagin09/20/24 NCCT - 3mm L UVJ stone, 4mm LUP non-obstructing stone Prior stone surgeries: None Family history of stone disease: Brother with history of kidney stones. Current metabolic management for stone disease/supplements includes: None She states that she does take 600mg calcium supplement daily as well as vitamin D for osteoporosis. Other urologic history: None Currently the patient denies any flank pain, hematuria, dysuria, fever, chills, or other new constitutional symptoms. She has been straining her urine with each void and has been taking Flomax daily and has not noticed a stone pass. She has also been trying to increase her water intake. However herpain has resolved. She does notice mild left flank discomfort with deep breaths but nothing significant. She denies any gross hematuria. Of note, she is planning to drive to see family over and she and her are planning to take a trip to [place] leaving 10/16/2024. PMH: Depression, HLD, hypothyroidism, nephrolithiasis, GERD, mitral valve prolapse No Known Allergies Past Medical History: Diagnosis Date Depressive Disorder 1990 Hypothyroidism 1984 Osteopenia 2018 Past Surgical History: Procedure Laterality Date BREAST SURGERY 2002 Benign. At [facility]. DILATATION AND CURETTAGE 1981 Post miscarriage SINUS SURGERY 2008 OBJECTIVE Lab Results Component Value Date CREATININE 0.76 09/22/[address] 09/20/24: Images personally reviewed. There was an approximately 3 mm stone at the left ureterovesical junction as well as a nonobstructing 4 mm left renal stone in the left upper pole. No right-sided calculi. PHYSICAL EXAM Constitutional: She appears well-developed. No distress. ASSESSMENT / PLAN #1 Nephrolithaisis Patient is a 69 y/o female who recently presented to the emergency department 2 days ago with left flank pain was found to have a 3 mm left UVJ stone. This is her first stone episode. We discussed that there is a high chance that she is able to pass the left UVJ stone on her own given it is small and near the bladder. However, she has not yet seen this pass despite her symptoms resolving. We also discussed her imaging findings and that she has an additional 4 mm nonobstructing stone in the left upper pole. We discussed that if she is not able to pass stone on her own we would recommend left ureteroscopy with laser lithotripsy to remove her left distal ureteral stone. In the event that we would need to treat this we could also treat the nonobstructing stone in the left kidney had the same time. Given that she is planned to travel to [place] on 10/16/2024 we will tentatively schedule her for left ureteroscopy, laser lithotripsy, stent placement on 10/07/2024. We will have her obtain a noncontrast CT abdomen and pelvis a few days prior to surgery. If this shows that the left distal ureteralstone has passed we will cancel her surgery. If it remains in place we will plan to proceed with ureteroscopy. I have also sent a prescription for Flomax to her pharmacy for her to continue 0.4 mg daily. She had a urine culture collected today which will be sufficient for preoperative urine culture. Signed by: Mohini Larson M.D. Answers submitted by the patient for this visit: Urinary Symptoms (Submitted on 09/21/2024) None of the above: Yes None of the above: Yes None of the above: Yes Are you able to sense when your bladder is full?: Yes How many times daily do you typically urinate during the day?: 6 How many times do you typically wake up and urinate at night?: 2 Have you had a urinary tract infection (UTI) within the past 1 year, and if so how many?: none Have you had any kidney infections or required hospitalized for kidney failure?: No Have you required a catheter placed because you could not empty your bladder?: No Do you ever unintentionally leak urine?: No Have you ever or are currently taking any treatments to treat your urinary symptoms?: none Have you ever had any surgical or office procedures to improve your urinary symptoms?: No Cosigned by Efrain Valadez M.D. at 09/22/2024 11:29 AM REAL ESTATE LEGAL SECRETARY ESTATE LEGAL SECRETARY ESTATE LEGAL SECRETARY Associated attestation - Efrain Valadez M.D. - 09/22/2024 11:29 AM REAL ESTATE LEGAL SECRETARY I met with Ms. Weir and her today in consultation with Dr. Larson and agree with the documentation and plan as outlined. Patient presents for consultation regarding nephrolithiasis. Her 1st and only stone episode began 09/20 of this year when she had significant left flank pain. CT scan demonstrates an obstructing left3 mm UVJ stone, likely forniceal rupture, and nonobstructing 4 mm left upper pole stone. Patient states her pain has significantly improved today although she has not yet passed her stone. Assessment: The risks and benefits of left ureteroscopy with laser lithotripsy and stent placement were discussed with the patient including the risks of general anesthesia, infection, significant ureteral injury (less than 1 in 1000), the possibility of a staged procedure and expected stent discomfort. We would plan to treat both ureteral and renal stone. We will perform a CT noncontrast prior. Discussed that if she has passed the ureteral stone in the renal stone remains, we still could proceed with flexible ureteroscopy for removal of that stone. Plan - CT A/P - L URS on 10/07 documented in this encounter Plan of Treatment Upcoming Encounters Date Type Department Care Team (Latest Contact Info) Description 10/07/2024 6:03 PM [facility] Hospital Encounter [facility] 4 AM ADMIT [address] [place] [phone] Efrain Valadez M.D. [address] [place] [phone] 10/07/2024 6:03 PM REAL ESTATE LEGAL SECRETARY - 10/07/2024 8:04 PM REAL ESTATE LEGAL SECRETARY Surgery [facility] OR [address] [place] [phone] Efrain Valadez M.D. [address] [place] [phone] URETEROSCOPY WITH LASER LITHOTRIPSY, LEFT. Scheduled Orders Name Type Priority Associated Diagnoses Orde r Schedule CT Abdomen Pelvis without IV Contrast Imaging RAD - Routine (most inpatients and all outpatients) Nephrolithiasis Expected: 10/05/2024, Expires: 12/23/2025 Scheduled Procedures Name Priority Associated Diagnoses Date/Ti me URETEROSCOPY WITH LASER LITHOTRIPSY Stone Kidney And Ureteral Nephrolithiasis 10/07/2024 6:03 PM REAL ESTATE LEGAL SECRETARY CYSTOURETHROSCOPY WITH PLACEMENT URETERAL STENT Stone Kidney And Ureteral Nephrolithiasis 10/07/2024 6:03 PM REAL ESTATE LEGAL SECRETARY RETROGRADE PYELOGRAM Stone Kidney And Ureteral Nephrolithiasis 10/07/2024 6:03 PM REAL ESTATE LEGAL SECRETARY documented as of this encounter Visit Diagnoses Diagnosis Nephrolithiasis- Primary Stone Kidney And Ureteral Nephrolithiasis Stone Kidney And Ureteral Nephrolithiasis documented in this encounter Care Teams Industrial Illuminating Engineer Relationship Specialty Start Date End Date Elsewhere, Pcp PCP - General Internal Medicine 06/28/22 documented as of this encounter
== END 2024-10-05 08:52 | disposition home or self-care (01) ==
LOC: CT 08:58
PROVIDERS: PCP Internal Medicine; Visit Provider Urology
DX: N20.0 Calculus of kidney (principal); N20.1 Calculus of ureter
CPT/HCPCS: 74176

== ENCOUNTER 2024-10-11 14:29 | Outpatient (CLI) | payer MEDICARE, BC, SELFPAY ==
--- OUTSIDE RECORDS SUMMARY | 2024-10-11 14:34 | XMS_ITS | Encounter Summary ---
Author Organization [facility] Address [address] [place] [address] Care Team Providers Care Construction Project Coordinator Name Role Phone Elsewhere, Pcp Primary Care Provider Unavailabl e Encounter Details Date Type Department Care Team (Latest Contact Info) Description 09/22/2024 7:36 AM NEUROSURGICAL PHYSICIAN ASSISTANT - 09/22/2024 11:59 PM [facility] Hospital Encounter Department of Laboratory Medicine and Pathology, [facility], in [place], [place] [address] [place] [phone] Efrain Valadez M.D. [address] [place] [phone] Hydronephrosis Discharge Disposition: Home or Self Care Social History Tobacco Use Types Packs/Day Years Used Date Smoking Tobacco: Never Smokeless Tobacco: Never Alcohol Use Standard Drinks/Week Comments Yes 0 (1 standard drink = 0.6 oz pur e alcohol) < 4 per month [facility] Utilities Answer Date Recorded In [...] How often do you attend chur or lutheran services? More than 4 times per year 06/29/2022 Do you belong to any clubs o r organizations such as druze groups, unions, fraternal or athletic groups, or [...] and heating? Not hard at all 06/29/2022 [facility] - Occupational Stress [...] living? No 02/01/2024 Nutrition Answer Date Recorded On average, how many serving s of fruits and vegetables do you eat per day (serving size is equal to 1 cup or approximately the size of a tennis ball)? 3-5 02/01/2024 Dental Answer Date Recorded Dental: Regular Dentist Yes 06/29/20 Employment Answer Date Recorded Employment status Retired 02/01/2024 Housing Stability Answer Date Recorded What is your living situation today? I have a [facility] place to live 02/01/2024 Education Answer Date Recorded What is the highest level of school you have completed or the highest degree you have received? Master's degree (e.g., MA, MS, Renetta, MEd, GEOTHERMAL POWERPLANT MECHANIC HELPER, TICO) 06/29/2022 Comments Unknown Sex and Gender Information Value Date Recorded Sex Assigned at Female 06/29/2022 11:48 AM CDT Legal Sex Female 10:10 PM NEUROSURGICAL PHYSICIAN ASSISTANT Gender Identity Female 06/29/2022 11:48 AM CDT [...] red or flaking. 15 g 3 02/05/2024 levoFLOXacin (Levaquin) 500 mg tablet Take 1 tablet (500 mg total) by mouth daily for 1 day. Take 2 hours prior to ureteral stent removal 1 tablet 10/07/2024 3:49 PM NEUROSURGICAL PHYSICIAN ASSISTANT 10/12/2024 levothyroxine (SYNTHROID, LEVOTHROID) 100 mcg tablet Take 100 mcg by mouth daily. 04/30/2022 omeprazole (PriLOSEC) [address] capsule Take 20 mg by mouth daily before morning meal. oxyBUTYnin (Ditropan) 5 mg tablet Take 1 tablet (5 mg total) by mouth 3 (three) times a day as needed (bladder spams) for up to 14 days. 42 tablet 10/07/2024 3:49 PM NEUROSURGICAL PHYSICIAN ASSISTANT 10/07/2024 Paxlovid 300 mg (150 mg x 2)-100 mg dose pack Take 2 nirmatrelvir 150 mg pink-oval tablets and 1 ritonavir 100 mg white-oval tablet together twice daily for 5 days.* 01/19/2024 simvastatin (ZOCOR) 10 mg tablet Take 10 mg by mouth at bedtime. 04/30/2022 tamsulosin (Flomax) 0.4 mg 24 hr capsule Take 1 capsule (0.4 mg total) by mouth daily. Take daily as needed for discomfort from the ureteral stent 30 capsule 10/07/2024 3:49 PM NEUROSURGICAL PHYSICIAN ASSISTANT 10/07/2024 tamsulosin (Flomax) 0.4 mg 24 hr capsule Take 1 capsule (0.4 mg total) by mouth daily. Take daily until stone passage 30 capsule 09/22/2024 documented as of this encounter Plan of Treatment Upcoming Encounters Date Type Department Care Team (Late st Contact Info) Description 10/13/2024 1:00 PM NEUROSURGICAL PHYSICIAN ASSISTANT Procedure visit Department of Urology in [place], [place] [address] [place] [phone] Mohini Larson M.D. [address] [place] [phone] 11/30/2024 7:30 AM NEUROSURGICAL PHYSICIAN ASSISTANT Appointment Department of Radiology, [facility], in [place], [place] [address] [place] [phone] Mohini Larson M.D. [address] [place] [phone] 11/30/2024 3:45 PM NEUROSURGICAL PHYSICIAN ASSISTANT Office Visit Department of Urology in [place], [place] [address] [place] [phone] Mohini Ang MPAS, P.A.-C. [address] [place] [phone] documented as of this encounter Procedures Procedure Name Priority Date/Time Associated Diagnosis Comments BASIC METABOLIC PANEL, S/P Routine 09/22/2024 8:10 AM NEUROSURGICAL PHYSICIAN ASSISTANT Hydronephrosis documented in this encounter Results * (ABNORMAL) Basic Metabolic Panel (09/22/2024 8:10 AM NEUROSURGICAL PHYSICIAN ASSISTANT) Potassium, S 4.3 3.6 - 5.2 mmol/L 09/22/2024 9:14 AM NEUROSURGICAL PHYSICIAN ASSISTANT DTL Sodium, S 142 135 - 145 mmol/L 09/22/2024 9:14 AM NEUROSURGICAL PHYSICIAN ASSISTANT DTL Chloride, S 108(H) 98 - 107 mmol/L 09/22/2024 9:14 AM NEUROSURGICAL PHYSICIAN ASSISTANT DTL Bicarbonate, S 23 22 - 29 mmol/L 09/22/2024 9:14 AM NEUROSURGICAL PHYSICIAN ASSISTANT DTL Anion Gap 11 7 - 15 09/22/2024 9:14 AM NEUROSURGICAL PHYSICIAN ASSISTANT DTL BUN (Blood Urea Nitrogen), S 16 6 - 21 mg/dL 09/22/2024 9:14 AM NEUROSURGICAL PHYSICIAN ASSISTANT DTL Creatinine 0.76 0.59 - 1.04 mg/dL 09/22/2024 9:14 AM NEUROSURGICAL PHYSICIAN ASSISTANT DTL Estimated GFR (eGFR) 85 >=60 mL/min/BSA 09/22/2024 9:14 AM NEUROSURGICAL PHYSICIAN ASSISTANT DTL Comment: Estimated GFR calculated using the 2020 CKD_EPI creatinine equation. Calcium, Total, S 9.2 8.8 - 10.2 mg/dL 09/22/2024 9:14 AM NEUROSURGICAL PHYSICIAN ASSISTANT DTL Glucose, S 94 70 - 140 mg/dL 09/22/2024 9:14 AM NEUROSURGICAL PHYSICIAN ASSISTANT DTL Blood (Blood, Venous) 09/22/2024 8:10 AM NEUROSURGICAL PHYSICIAN ASSISTANT 09/22/2024 8:50 AM NEUROSURGICAL PHYSICIAN ASSISTANT Efrain Valadez M.D. LAB BLOOD ADD-ON Final Result [facility] [address] [place] [address], [facility] DTL [facility] [address] [place] [address] documented in this encounter Visit Diagnoses Diagnosis Hydronephrosis documented in this encounter Care Teams Construction Project Coordinator Relationship Specialty Start Date End Date Elsewhere, Pcp PCP - General Internal Medicine 06/28/22 documented as of this encounter
--- OUTSIDE RECORDS SUMMARY | 2024-10-11 14:34 | XMS_ITS | Clinical Summary ---
Author Organization [facility] Address [address] [place] [address] Care Team Providers Care Legal Contracts Specialist Name Role Phone Elsewhere, Pcp Primary Care Provider Unavailabl e Source Comments Patient records contain information from all sites at [facility]. For routine questions regarding patient records, call [phone] during business hours, M-F 8:00 AM - 5:00 PM Central Time. Record requests for emergency care only can be directed to [phone] at any time.[facility] Allergies No known active allergies Medications * This document contains information received from the source organization and may not represent a complete record from that organization. simvastatin (ZOCOR) 10 mg tablet Take 10 mg by mouth at bedtime. 04/30/20 Active levothyroxine (SYNTHROID, LEVOTHROID) 100 mcg tablet Take 100 mcg by mouth daily. 04/30/20 22 Active estradioL (VAGIFEM) 10 mcg vaginal tablet INSERT ONE TABLET VAGINALLY TWICE A WEEK 04/30/20 Active buPROPion XL (WELLBUTRIN XL) 300 mg 24 hr tablet Take 300 mg by mouth daily. 04/30/20 22 Active cholecalcifero l, vitamin D3, (cholecalcifer ol) 25 mcg (1,000 Unit) tablet Take 25 mcg by mouth daily. Calcium and Vit D Active amoxicillin-po t clavulanate (AUGMENTIN) 875-125 mg per tablet Take 1 tablet by mouth 2 (two) times a day. 12/18/19 24 Active Paxlovid 300 mg (150 mg x 2)-100 mg dose pack Take 2 nirmatrelvir 150 mg pink-oval tablets and 1 ritonavir 100 mg white-oval tablet together twice daily for 5 days.* 01/19/20 24 Active hydrocortisone -acetic acid (ACETASOL HC) 1-2 % otic solution Administer 3 drops into each ear 2 (two) times a day. If flared, can mix with ketoconazole cream and apply via qtip 10 mL 3 02/05/20 24 Active ketoconazole (NIZORAL) 2 % cream Apply 1 Application topically 2 (two) times a day. Apply to ears if itchy, red or flaking. 15 g 3 02/05/20 24 Active omeprazole (PriLOSEC) [address] capsule Take 20 mg by mouth daily before morning meal. Active levoFLOXacin (Levaquin) 500 mg tablet Take 1 tablet (500 mg total) by mouth daily for 1 day. Take 2 hours prior to ureteral stent removal 1 tablet 4 3:49 PM BUTTON ATTACHING MACHINE OPERATOR 10/12/20 24 Active tamsulosin (Flomax) 0.4 mg 24 hr capsule Take 1 capsule (0.4 mg total) by mouth daily. Take daily as needed for discomfort from the ureteral stent 30 capsule 4 3:49 PM BUTTON ATTACHING MACHINE OPERATOR 10/07/20 24 025 Active oxyBUTYnin (Ditropan) 5 mg tablet Take 1 tablet (5 mg total) by mouth 3 (three) times a day as needed (bladder spams) for up to 14 days. 42 tablet 4 3:49 PM BUTTON ATTACHING MACHINE OPERATOR 10/07/20 24 024 Active tamsulosin (Flomax) 0.4 mg 24 hr capsule Take 1 capsule (0.4 mg total) by mouth daily. Take daily until stone passage 30 capsule 09/22/20 24 Discontinued levoFLOXacin (Levaquin) 500 mg tablet Take 1 tablet (500 mg total) by mouth daily for 14 days. 14 tablet 09/24/20 24 Discontinued Active Problems Problem Noted Date Diagnosed Date Stone Kidney And Ureteral 09/22/2024 Nephrolithiasis 09/22/2024 Encounters Date Type Department Care Team Description 10/08/2024 Abstract [facility], [place] [address] [place] [address] Provider, Historical 10/07/2024 1:05 PM BUTTON ATTACHING MACHINE OPERATOR Ancillary Procedure Department of Urology 10/07/2024 12:32 PM BUTTON ATTACHING MACHINE OPERATOR - 10/07/2024 2:33 PM BUTTON ATTACHING MACHINE OPERATOR Surgery [facility] MAIN OR [address] [place] [address] Efrain Valadez M.D. URETEROSCOPY, LEFT. 10/07/2024 12:28 PM BUTTON ATTACHING MACHINE OPERATOR Anesthesia Event [facility] OR [address] [place] [address] Mitchell Mcdowell M.D., Ph.D. Julien Russo M.D. 10/07/2024 10:45 AM BUTTON ATTACHING MACHINE OPERATOR Ancillary Procedure Department of General Surgery 10/07/2024 9:28 AM BUTTON ATTACHING MACHINE OPERATOR - 10/07/2024 5:55 PM BUTTON ATTACHING MACHINE OPERATOR Hospital Encounter [facility] OR [address] [place] [address] Efrain Valadez M.D. Stone Kidney And Ureteral; Nephrolithiasis Discharge Disposition: Home or Self Care 10/05/2024 Clinical Communication Department of Urology in [place], [place] [address] [place] [address] Mohini Larson M.D. 09/24/2024 Clinical Communication Department of Urology in [place], [place] [address] [place] [address] Mohini Larson M.D. 09/22/2024 10:00 AM BUTTON ATTACHING MACHINE OPERATOR Comprehensive Visit Department of Urology in [place], [place] [address] [place] [address] Efrain Valadez M.D. Nephrolithiasis (Primary Dx) 09/22/2024 7:36 AM BUTTON ATTACHING MACHINE OPERATOR - 09/22/2024 11:59 PM BUTTON ATTACHING MACHINE OPERATOR Hospital Encounter Department of Laboratory Medicine and Pathology, [facility], in [place], [place] [address] [place] [address] Efrain Valadez M.D. Hydronephrosis Discharge Disposition: Home or Self Care 09/22/2024 7:36 AM BUTTON ATTACHING MACHINE OPERATOR - 09/22/2024 11:59 PM BUTTON ATTACHING MACHINE OPERATOR Hospital Encounter Department of Laboratory Medicine and Pathology, [facility], in [place], [place] [address] [place] [address] Efrain Valadez M.D. Hydronephrosis Discharge Disposition: Home or Self Care 09/22/2024 Documentation Preoperative Evaluation Center in [place], [place] [address] [place] [address] Valery Hinton MPAS, P.A.-C. 09/22/2024 Clinical Communication Department of Urology in [place], [place] [address] [place] [phone] Efrain Valadez M.D. Post op question 09/21/2024 Clinical Communication Department of Urology in [place], [place] [address] [place] [address] Efrain Valadez M.D. from Last 3 Months Immunizations Name Administration Dates Next Due HepA Adult 01/03/2006 IPV 01/03/2006 Influenza, Unspecified 08/15/2004 SARS-COV-2 (COVID-19) - MODE RNA (12 YEARS AND OLDER) Fall Seasonal 02/14/2024 Family History Medical History Relation Name Comments [...] pur e alcohol) < 4 per month [facility] Utilities Answer Date Recorded In the past 12 months has e [employer], gas, oil, or water [employer] threatened to shut off services in your [...] often do you attend chur ch or zoroastrianism services? More than 4 times per year 06/29/2022 Do you belong to any clubs o r organizations such as yarsanism groups, unions, fraternal [...] and heating? Not hard at all 06/29/2022 [facility] of Occupat ional Health - Occupational Stress [...] your living situation today? I have a [facility] place to live 02/01/2024 Education Answer Date Recorded What is the highest level of school you have completed or the highest degree you have received? Master's degree (e.g., MA, MS, Renetta, MEd, [employer], TICO) 06/29/2022 Comments No Sex and Gender Information Value Date Recorded Sex Assigned at Female 06/29/2022 11:48 AM CDT Legal Sex Female 10:10 PM BUTTON ATTACHING MACHINE OPERATOR Gender Identity Female 06/29/2022 11:48 AM CDT Sexual Orientation Straight 06/29/2022 11 :48 AM CDT Last Filed Vital Signs Vital Sign Reading Time Taken Comments Blood Pressure 151/95 10/07/2024 5:00 PM BUTTON ATTACHING MACHINE OPERATOR Pulse 80 10/07/2024 5:00 PM BUTTON ATTACHING MACHINE OPERATOR Temperature 36.4 C (97.5 F) 10/07/2024 2:59 PM BUTTON ATTACHING MACHINE OPERATOR Respiratory Rate 28 10/07/2024 3:15 PM BUTTON ATTACHING MACHINE OPERATOR Oxygen Saturation 96% 10/07/2024 5:00 PM BUTTON ATTACHING MACHINE OPERATOR Inhaled Oxygen Concentration - - Weight 75.6 kg (166 lb 10.7 oz) 10/07/2024 9:56 AM BUTTON ATTACHING MACHINE OPERATOR Height 167 cm (5' 5.75) 10/07/2024 9:56 AM BUTTON ATTACHING MACHINE OPERATOR Body Mass Index 27.11 10/07/2024 9:56 AM BUTTON ATTACHING MACHINE OPERATOR Plan of Treatment Upcoming Encounters Date Type Department Care Team (Late st Contact Info) Description 10/13/2024 1:00 PM BUTTON ATTACHING MACHINE OPERATOR Procedure visit Department of Urology in [place], [place] [address] [place] [phone] Mohini Larson M.D. [address] [place] [phone] 11/30/2024 7:30 AM BUTTON ATTACHING MACHINE OPERATOR Appointment Department of Radiology, [facility], in [place], [place] [address] [place] [phone] Mohini Larson M.D. [address] [place] [phone] 11/30/2024 3:45 PM BUTTON ATTACHING MACHINE OPERATOR Office Visit Department of Urology in [place], [place] [address] [place] [phone] Mohini Ang MPAS, P.A.-C. [address] [place] [phone] Health Maintenance Due Date Last Done Comments Bone Density Scan (Osteoporo sis Screen) 1956 CT Colonography 1956 Cologuard 1955 Colonoscopy 1956 Colorectal Cancer Screening 1956 FIT 1955 Hepatitis C Screening 1955 Mammogram 1955 Thyroid Stimulating Hormone (TSH) test for thyroid function 1956 IPV Vaccines (2 of 3 - Adult catch-up series) 01/31/2006 01/03/2006 Depression Screening (Annual PHQ-2) 11/03/2023 COVID-19 Vaccine (2023-2 5 season) 2024 02/14/2024, 09/03/2023, 03/29/2023, Additional history exists Fasting Glucose for Diabetes Screening 09/22/2027 09/22/2024 DTaP,Tdap,and Td Vaccines (3 - Td or Tdap) 03/10/2033 03/10/2023, 11/20/2012 Cervical/Vaginal Cancer Screening Discontinued 021 Zoster Vaccines Completed 08/14/2021, 05/03, 05/12/2013 Pneumococcal vaccine (65+ years) Completed 06/29/20, 05/16/2021 Influenza Vaccine Completed 09/06/2024, , 08/22/2022, Additional history exists Fall Risk Screen (Annual) Completed 10/07/2024 Medical Devices Implanted Type Area Manufacturing Engineer Paint Device Identifier Shelf Expiration Date Model / Serial / Lot Stnt Uret W/O Gw Tria [id number] - [id number] Implanted:Qt y: 1 on 10/07/2024 by Mohini Larson M.D. at [facility] Ureteral Stent Left: Ureter [employer] [id number] 07/26/2027 [id number] / / [id number] Procedures Procedure Name Priority Date/Time Associated Diagnosis Comments FL FLUORO LESS THAN 1 HOUR RAD - Routine (most inpatients and all outpatients) 10/07/2024 1:55 PM BUTTON ATTACHING MACHINE OPERATOR GRAM'S ST, U Routine 10/07/2024 1:21 PM BUTTON ATTACHING MACHINE OPERATOR BACTERIAL CULTURE, AEROBIC + SUSC, URINE Routine 10/07/2024 1:21 PM BUTTON ATTACHING MACHINE OPERATOR Stone Kidney And Ureteral Nephrolithiasis UROLOGY IMAGE EXAM Routine 10/07/2024 1: 05 PM BUTTON ATTACHING MACHINE OPERATOR LDA ANE ENDOTRACHEAL AIRWAY Routine 10/07/2024 12:40 PM BUTTON ATTACHING MACHINE OPERATOR RETROGRADE PYELOGRAM 10/07/2024 12:13 PM BUTTON ATTACHING MACHINE OPERATOR Stone Kidney And Ureteral Nephrolithiasis CYSTOURETHROSCOPY WITH PLACEMENT URETERAL STENT 10/07/2024 12:13 PM BUTTON ATTACHING MACHINE OPERATOR Stone Kidney And Ureteral Nephrolithiasis URETEROSCOPY WITH LASER LITHOTRIPSY 10/07/2024 12:13 PM BUTTON ATTACHING MACHINE OPERATOR Stone Kidney And Ureteral Nephrolithiasis SURGERY IMAGE EXAM Routine 10/07/2024 10:45 AM BUTTON ATTACHING MACHINE OPERATOR ECG STAT 10/07/2024 10:03 AM BUTTON ATTACHING MACHINE OPERATOR OUTSIDE CT BODY Routine 10/05/2024 9:15 AM BUTTON ATTACHING MACHINE OPERATOR DIPSTICK, U Routine 09/22/2024 8:20 AM BUTTON ATTACHING MACHINE OPERATOR OSMOLALITY, U Routine 09/22/2024 8:20 AM BUTTON ATTACHING MACHINE OPERATOR PH, U Routine 09/22/2024 8:20 AM BUTTON ATTACHING MACHINE OPERATOR MICROSCOPIC AUTOMATED Routine 09/22/2024 8:20 AM BUTTON ATTACHING MACHINE OPERATOR URINALYSIS WITH MICROSCOPIC Routine 09/22/2024 8:20 AM BUTTON ATTACHING MACHINE OPERATOR Hydronephrosis BACTERIAL CULTURE, AEROBIC + SUSC, URINE Routine 09/22/2024 8:20 AM BUTTON ATTACHING MACHINE OPERATOR Hydronephrosis BASIC METABOLIC PANEL, S/P Routine 09/22/2024 8:10 AM BUTTON ATTACHING MACHINE OPERATOR Hydronephrosis OUTSIDE CT BODY Routine 09/20/2024 12:10 PM BUTTON ATTACHING MACHINE OPERATOR from Last 3 Months Results * FL Fluoro Less Than 1 Hour (10/07/2024 1:55 PM BUTTON ATTACHING MACHINE OPERATOR) Narrative [id number] - 10/07/2024 1:55 PM BUTTON ATTACHING MACHINE OPERATOR This exam does not require a radiologist review or interpretation. Please refer to the patient's medical record on this date for clinical details. Efrain Valadez M.D. IMG FLUOROSCOPY PROCEDURES Fi nal Result [id number] NA * Bacterial Culture, Aerobic + Susceptibility, Urine (10/07/2024 1:21 PM BUTTON ATTACHING MACHINE OPERATOR) Only the most recent of2 resultswithin the time period is included. Urine Culture No growth after 1 day of incubation. 10/08/2024 10:39 AM BUTTON ATTACHING MACHINE OPERATOR DTL Urine (Urine, Ureter Left) 10/07/2024 1:21 PM BUTTON ATTACHING MACHINE OPERATOR us Efrain Valadez M.D. LAB MICROBIOLOGY - GENERAL OR DERABLES Final Result Performing Organization Address [facility] Co de Phone Number [facility] [address] [place] [address], [facility] [address] [place] [address] * Gram Stain, Urine (10/07/2024 1:21 PM BUTTON ATTACHING MACHINE OPERATOR) Source Urine, Urine, Ureter Left 10/07/2024 2:03 PM BUTTON ATTACHING MACHINE OPERATOR DTL Gram Stain, U Negative Negative 10/07/2024 3:07 PM BUTTON ATTACHING MACHINE OPERATOR DTL Urine 10/07/2024 1:21 PM BUTTON ATTACHING MACHINE OPERATOR 10/07/2024 2:03 PM BUTTON ATTACHING MACHINE OPERATOR us Efrain Valadez M.D. LAB URINE ORDERABLES Final Re sult Performing Organization Address [facility] Co de Phone Number [facility] [address] [place] [address], [facility] [address] [place] [address] * FL FLUORO LESS THAN 1 HOUR-Urology Image Exam (10/07/2024 1:05 PM BUTTON ATTACHING MACHINE OPERATOR) 10/07/2024 1:05 PM BUTTON ATTACHING MACHINE OPERATOR Narrative I[facility]S - 10/07/2024 1:37 PM BUTTON ATTACHING MACHINE OPERATOR This order has been created and auto-finalized to support the import of images acquired without order. The clinical documentation to support these images can be found on the encounter that produced images. us Provider Not In System IMG NON RAD IMAGING PROCE DURES Final Result Performing Organization Address City/[facility]/ZIP Co de Phone Number IIMS NA * LDA ANE ENDOTRACHEAL AIRWAY (10/07/2024 12:40 PM BUTTON ATTACHING MACHINE OPERATOR) Narrative Clive Bright M.S. - 10/07/2024 12:40 PM BUTTON ATTACHING MACHINE OPERATOR Clive Bright M.S. 10/07/2024 12:53 PM Airway Date/Time: 10/07/2024 12:40 PM Performed by: Clive Bright M.S. Authorized by: Mitchell Mcdowell M.D., Ph.D. Patient location during procedure: OR / Procedure Area PROCEDURE DETAILS: Mask difficulty assessment: easy mask Final airway type: direct laryngoscopy, intubation Laryngeal Manipulation: no Final airway difficulty of direct laryngoscopy (DL): 0-easy Final best view of glottic structures - Cormack/Lehane Score: grade 2A ETT location: oral Blade type: MAC 3 Tube size: 6.5 ETT distance at teeth/gum: 21 Oral tube type: standard ETT Cuffed: yes Leak Test Performed: no Number of attempt to successful placement: 1 Airway confirmation: bilateral breath sounds, positive ETCO2 and bilateral chest rise Other previous techniques attempted: direct laryngoscopy, intubation Number of other approaches attempted: 1 Previous direct laryngoscopy: best view of glottic structures: grade 3A Additional Comments First attempt - winchester blade size 2 - unsuccessful, second mac 3 blade - successful - by SRNA PRE PROCEDURE DETAILS: Pre evaluation for airway management: procedure Urgency: elective Preop assessment of probable difficulty: no difficulty anticipated Preoxygenation: bag valve mask SEDATION / ANESTHESIA Anesthesia method: anesthesia POST PROCEDURE DETAILS: Procedure outcome: successful Notable Events: no complications Mitchell Mcdowell M.D., Ph.D. ANESTHESIA ORDERABLES Final Result * CYSTO-Surgery Image Exam (10/07/2024 10:45 AM BUTTON ATTACHING MACHINE OPERATOR) 10/07/2024 10:4 4 AM BUTTON ATTACHING MACHINE OPERATOR Narrative IIMS - 10/07/2024 1:41 PM BUTTON ATTACHING MACHINE OPERATOR This order has been created and auto-finalized to support the import of images acquired without order. The clinical documentation to support these images can be found on the encounter that produced images. us Provider Not In System IMG NON RAD IMAGING PROCE DURES Final Result Performing Organization Address [facility] de Phone Number IIMS NA * ECG 12 Lead (10/07/2024 10:03 AM BUTTON ATTACHING MACHINE OPERATOR) Ventricular Rate ECG/Min 88 BPM MUSE OK Interval 156 ms MUSE QRSD Interval 76 ms MUSE QT Interval 358 ms MUSE QTC Interval 433 ms MUSE P [place] 58 degrees MUSE R [place] 36 degrees MUSE T Wave [place] 63 degrees MUSE 10/07/2024 10:0 3 AM BUTTON ATTACHING MACHINE OPERATOR 10/07/2024 10:16 AM BUTTON ATTACHING MACHINE OPERATOR Impressions MUSE - 10/07/2024 10:16 AM BUTTON ATTACHING MACHINE OPERATOR Normal sinus rhythm with sinus arrhythmia Possible Lateral infarct No previous ECGs available Reviewed by DAREK Ashby Narrative Procedure Note Federico Deutsch M.D., Ph.D. - 10/07/2024 IMPRESSION: Normal sinus rhythm with sinus arrhythmia Possible Lateral infarct No previous ECGs available Reviewed by DAREK Ashby us Efrain Valadez M.D. ECG ORDERABLES Final Result Performing Organization Address [facility] de Phone Number MUSE NA * CT ABDOMEN PELVIS WO CON-Outside CT Body (10/05/2024 9:15 AM BUTTON ATTACHING MACHINE OPERATOR) Only the most recent of2 resultswithin the time period is included. 10/05/2024 9:11 AM BUTTON ATTACHING MACHINE OPERATOR Narrative IIMS - 10/05/2024 9:37 AM BUTTON ATTACHING MACHINE OPERATOR This order has been created and auto-finalized [...] PROCEDURES Final R esult Performing Organization Address [facility] de Phone Number IIMS NA * Dipstick, Urine (09/22/2024 8:20 AM BUTTON ATTACHING MACHINE OPERATOR) Hemoglobin, QL, U Negative Negative 09/22/2024 9:17 AM BUTTON ATTACHING MACHINE OPERATOR DTL Leukocyte Esterase, U Negative Negative 09/22/2024 9:17 AM BUTTON ATTACHING MACHINE OPERATOR DTL Nitrite, U Negative Negative 09/22/2024 9:17 AM BUTTON ATTACHING MACHINE OPERATOR DTL Ketone, U Negative Negative mg/dL 09/22/2024 9:17 AM BUTTON ATTACHING MACHINE OPERATOR DTL Glucose, U Negative Negative mg/dL 09/22/2024 9:17 AM BUTTON ATTACHING MACHINE OPERATOR DTL Urine 09/22/2024 8:20 AM BUTTON ATTACHING MACHINE OPERATOR 09/22/2024 8:40 AM BUTTON ATTACHING MACHINE OPERATOR us Efrain Valadez M.D. LAB URINE ORDERABLES Final Re sult Performing Organization Address City/[facility] Co de Phone Number [facility] [address] [address] * Microscopic Automated (09/22/2024 8:20 AM BUTTON ATTACHING MACHINE OPERATOR) Microscopy Normal 09/22/2024 9:17 AM BUTTON ATTACHING MACHINE OPERATOR DTL RBC <3 <3 /hpf 09/22/2024 9:17 AM BUTTON ATTACHING MACHINE OPERATOR DTL WBC None Seen /hpf 09/22/2024 9:17 AM BUTTON ATTACHING MACHINE OPERATOR DTL Comment: ----REFERENCE VALUE---- <4 (Males) <11 (Females) Urine 09/22/2024 8:20 AM BUTTON ATTACHING MACHINE OPERATOR 09/22/2024 8:40 AM BUTTON ATTACHING MACHINE OPERATOR us Efrain Valadez M.D. LAB URINE ORDERABLES Final Re sult Performing Organization Address City/[facility] Co de Phone Number [facility] [address] [place], [place] [address] [place] [address] [address] [place] [address] * pH, Urine (09/22/2024 8:20 AM BUTTON ATTACHING MACHINE OPERATOR) pH, U 5.3 4.5 - 8.0 09/22/2024 9:5 0 AM BUTTON ATTACHING MACHINE OPERATOR DTL Urine 09/22/2024 8:20 AM BUTTON ATTACHING MACHINE OPERATOR 09/22/2024 8:40 AM BUTTON ATTACHING MACHINE OPERATOR us Efrain Valadez M.D. LAB URINE ORDERABLES Final Re sult Performing Organization Address [facility] Co de Phone Number [facility] [address] [place] [address], [address] [address] * (ABNORMAL) Osmolality, Urine (09/22/2024 8:20 AM BUTTON ATTACHING MACHINE OPERATOR) Osmolality, U 133(L) 150 - 1150 mOsm/kg 09/22/2024 9:50 AM BUTTON ATTACHING MACHINE OPERATOR DTL Urine 09/22/2024 8:20 AM BUTTON ATTACHING MACHINE OPERATOR 09/22/2024 8:40 AM BUTTON ATTACHING MACHINE OPERATOR us Efrain Valadez M.D. LAB URINE ORDERABLES Final Re sult Performing Organization Address [facility] de Phone Number [facility] [address] [place] [address], [address] [address] * Urinalysis, with Microscopic: Urine, Midstream (09/22/2024 8:20 AM BUTTON ATTACHING MACHINE OPERATOR) Source Urine, Urine, Midstream 09/22/2024 8:40 AM BUTTON ATTACHING MACHINE OPERATOR DTL Color, U Yellow 09/22/2024 8:40 AM BUTTON ATTACHING MACHINE OPERATOR DTL Clarity, U Clear 09/22/2024 8:40 AM BUTTON ATTACHING MACHINE OPERATOR DTL Protein, U <4 <26 mg/dL 09/22/2024 9:28 AM BUTTON ATTACHING MACHINE OPERATOR DTL Protein/Osmol ality <0.30 <0.42 ratio 09/22/2024 9:50 AM BUTTON ATTACHING MACHINE OPERATOR DTL Predicted 24 HR Protein, U <225 <229 mg/24 h 09/22/2024 9:50 AM BUTTON ATTACHING MACHINE OPERATOR DTL Predicted Range <910 mg/24 h 09/22/2024 9:50 AM BUTTON ATTACHING MACHINE OPERATOR DTL Urine (Urine, Midstream) 09/22/2024 8:20 AM BUTTON ATTACHING MACHINE OPERATOR 09/22/2024 8:40 AM BUTTON ATTACHING MACHINE OPERATOR us Efrain Valadez M.D. LAB URINE ORDERABLES Final Re sult [facility] [address] [place] [address], [facility] DTL [facility] [address] [place] [address] * (ABNORMAL) Basic Metabolic Panel (09/22/2024 8:10 AM BUTTON ATTACHING MACHINE OPERATOR) Pathologist [facility] Potassium, S 4.3 3.6 - 5.2 mmol/L 09/22/2024 9:14 AM BUTTON ATTACHING MACHINE OPERATOR DTL Sodium, S 142 135 - 145 mmol/L 09/22/2024 9:14 AM BUTTON ATTACHING MACHINE OPERATOR DTL Chloride, S 108(H) 98 - 107 mmol/L 09/22/2024 9:14 AM BUTTON ATTACHING MACHINE OPERATOR DTL Bicarbonate, S 23 22 - 29 mmol/L 09/22/2024 9:14 AM BUTTON ATTACHING MACHINE OPERATOR DTL Anion Gap 11 7 - 15 09/22/2024 9:14 AM BUTTON ATTACHING MACHINE OPERATOR DTL BUN (Blood Urea Nitrogen), S 16 6 - 21 mg/dL 09/22/2024 9:14 AM BUTTON ATTACHING MACHINE OPERATOR DTL Creatinine 0.76 0.59 - 1.04 mg/dL 09/22/2024 9:14 AM BUTTON ATTACHING MACHINE OPERATOR DTL Estimated GFR (eGFR) 85 >=60 mL/min/BSA 09/22/2024 9:14 AM BUTTON ATTACHING MACHINE OPERATOR DTL Comment: Estimated GFR calculated using the 2020 CKD_EPI creatinine equation. Calcium, Total, S 9.2 8.8 - 10.2 mg/dL 09/22/2024 9:14 AM BUTTON ATTACHING MACHINE OPERATOR DTL Glucose, S 94 70 - 140 mg/dL 09/22/2024 9:14 AM BUTTON ATTACHING MACHINE OPERATOR DTL Blood (Blood, Venous) 09/22/2024 8:10 AM BUTTON ATTACHING MACHINE OPERATOR 09/22/2024 8:50 AM BUTTON ATTACHING MACHINE OPERATOR us Efrain Valadez M.D. LAB BLOOD ADD-ON Final Result [facility] [address] [place] [address], [facility] DTL [facility] [address] [place] [address] from Last 3 Months Insurance [facility] Advance Directives For more information, please contact: [phone] Documents on File Type Date Recorded Patient Memorial Adviser Expl anation Advance Directives 10/08/2024 2:36 PM Advance Directives 10/07/2024 9:58 AM Jayson Weir HCPOA/ADVOCATE/AGENT/R EPRESENTATIVE/SURROGAT E Healthcare Agents on File Name Relationship Healthcare Agent Relationshi p Communication Jayson Destin Spouse Health Care Agent Kasey Larryon Daughter First Alternate Health Care Agent Megan Weir Daughter Second Alternate Health Care Agent Care Teams Legal Contracts Specialist Relationship Specialty Start Date End Date Elsewhere, Pcp PCP - General Internal Medicine 06/28/22
--- OUTSIDE RECORDS SUMMARY | 2024-10-11 14:34 | XMS_ITS ---
Author Organization [facility] Address [address] [place] [address] Care Team Providers Care Textile Clothing And Footwear Mechanic Name Role Phone Unavailable Unavailable Unavailable Surgery Details Not on file Complications Check Surgery Details section. Procedure Estimated Blood Loss Check Surgery Details section. Procedure Findings Check Surgery Details section. Procedure Specimens Taken Check Surgery Details section.
--- OUTSIDE RECORDS SUMMARY | 2024-10-11 14:34 | XMS_ITS | Encounter Summary ---
Author Organization [facility] Address [address] [place] [id number] Care Team Providers Care Christian Science Reader Name Role Phone Elsewhere, Pcp Primary Care Provider Unavailabl e Encounter Details Date Type Department Care Team (Late st Contact Info) Description 09/24/2024 Clinical Communication Department of Urology in [place], [place] [address] [place] [address] Mohini Larson M.D. [address] [place] [phone] Social History Tobacco Use Types Packs/Day Years Used Date Smoking Tobacco: Never Smokeless Tobacco: Never Alcohol Use Standard Drinks/Week Comments Yes 0 (1 standard drink = 0.6 oz pur e alcohol) < 4 per month [facility] Utilities Answer Date Recorded In the past 12 months has e [employer], gas, oil, or water [facility] threatened to shut off services in [...] often do you attend chur ch or methodist services? More than 4 times per year 06/29/2022 Do you belong to any clubs o r organizations such as scientologist groups, unions, [employer] [place] or athletic groups, or school groups? Yes [...] and heating? Not hard at all 06/29/2022 [facility] [place] of Occupat ional Health - Occupational Stress [...] your living situation today? I have a [facility] place to live 02/01/2024 Education Answer Date Recorded What is the highest level of school you have completed or the highest degree you have received? Master's degree (e.g., MA, MS, Renetta, MEd, GLOVE EXAMINER, TICO) 06/29/2022 Comments Unknown Sex and Gender Information Value Date Recorded Sex Assigned at Female 06/29/2022 11:48 AM CDT Legal Sex Female 10:10 PM INVENTORY AUDIT CLERK Gender Identity Female 06/29/2022 11:48 AM CDT Sexual Orientation Straight 06/29/2022 11 :48 AM CDT documented as of this encounter Plan of Treatment Upcoming Encounters Date Type Department Care Team (Late st Contact Info) Description 10/13/2024 1:00 PM INVENTORY AUDIT CLERK Procedure visit Department of Urology in [place], [place] [address] [place] [address] Mohini Larson M.D. [address] [place] [phone] 11/30/2024 7:30 AM INVENTORY AUDIT CLERK Appointment Department of Radiology, [facility], in [place], [place] [address] [place] [address] Mohini Larson M.D. [address] [place] [phone] 11/30/2024 3:45 PM INVENTORY AUDIT CLERK Office Visit Department of Urology in [place], [place] [address] [place] [address] Mohini Ang MPAS, P.A.-C. [address] [place] [phone] documented as of this encounter Visit Diagnoses Not on filedocumented in this encounter Care Teams Christian Science Reader Relationship Specialty Start Date End Date Elsewhere, Pcp PCP - General Internal Medicine 06/28/22 documented as of this encounter
--- OUTSIDE RECORDS SUMMARY | 2024-10-11 14:34 | XMS_ITS | Encounter Summary ---
Author Organization [facility] Address [address] [place] [address] Care Team Providers Care Sandal Parts Assembler Name Role Phone Elsewhere, Pcp Primary Care Provider Unavailabl e Encounter Details Date Type Department Care Team (Late st Contact Info) Description 10/07/2024 12:28 PM CLAIM PROCESSING SPECIALIST Anesthesia Event [facility] [address] [place] [address] Mitchell Mcdowell M.D., Ph.D. [address] [place] [phone] Julien Russo M.D. [address] [place] [phone] Anesthesia Record Procedure Summary Procedure Name Responsible Anesthesiologist Anesthesia Start Time Anesthesia Stop Time URETEROSCOPY, LEFT. (Left) Mitchell Mcdowell M.D., Ph.D. 10/07/24 1228 10/07/24 1359 Events Date Time Event Comment 10/07/2024 1228 An Start Machine/Equipme nt Checked Infection Precautions Followed Procedure/Site Verified NPO Status Verified Supine Standard ASA Monitors Applied 1238 An Induction 1240 An Intubation 1249 Turnover to Proceduralist 1304 Proc Start 1304 Anes CS Handoff I, Clive Smith [facility], M.S., attest that I have reconciled the controlled substances and that I have reviewed all the significant information with the next anesthesia provider assuming care of this patient. 1321 Anes CS Handoff I, Jaimie logan, PATTERN HAND, WARD ATTENDANT, DNAP, attest that I have reconciled the controlled substances and that I have reviewed all the significant information with the next anesthesia provider assuming care of this patient. 1335 Proc Fin 1338 Turnover to ANE Staff 1346 Airway Removal Criteria Met 1346 Extubation/Airway Removed 1347 an stop data 1359 An End I completed my handoff to the receiving staff during which we 1. Identified the patient 2. Identified the responsible provider 3. Reviewed the pertinent medical history 4. Discussed the surgical course 5. Reviewed intra-op anesthesia management and issues during anesthesia 6. Set expectations for post-procedure period 7. Allowed opportunity for questions and acknowledgement of understanding. Meds Name Total fentanyl injection 50 mcg/mL 50 mcg lidocaine 2% (mg) injection 100 mg rocuronium 10 mg/mL injection 70 mg phenylephrine 100 mcg/mL injection 200 m cg ondansetron 4 mg/2 mL injection 4 mg sugammadex 100 mg/mL injection 500 mg propofol 10 mg/mL injection 200 mg ciprofloxacin in D5W IVPB 400 mg (Cipro) 200 mg dexAMETHasone (Decadron) injection 4 mg/ mL 8 mg Lactated Ringers Free Drip 400 mL * Agents No agents on file. * Blood No blood administrations on file. Lines, Drains, and Airways Type Details Placement Removal Ureteral Drain/Stent 10/07/24; Left; Oth er (Comment) (Dangling from urethra); 6 Fr.; Yes 10/07/24 0000 by Noah Sunshine Ed.D., M.A., R.N. Peripheral IV Placement Date: 03/26; Placement Time: 0959; Catheter Size: 22 G; Orientation: Right; Location: Forearm; Site Prep: Chlorhexidine (Preferred); Insertion Attempts: 1; Removal Date: 10/07/24; Removal Time: 1302 10/07/24 0959 by Ellie Fuentes 10/07/24 1302 by Clive Bright, M.SRafaela ETT Placement Date: 03/26; Placement Time: 1240 (created via procedure documentation); Mask Ventilation: Easy mask; Technique: Direct laryngoscopy, intubation; Type: Standard ETT; Single Lumen Tube Size: 6.5 mm; Cuffed: Yes; Blade Size: MAC 3; Location: Oral; Grade View: Grade 2A; Insertion Attempts: 1; Placement Verification: Bilateral breath sounds, Positive ETCO2, Symmetrical chest wall movement; Airway Comment: First attempt - winchester blade size 2 - unsuccessful, second mac 3 blade - successful - by SRNA; Removal Date: 10/07/24; Removal Time: 13410/07/24 1240 by Clive Bright M.S. 10/07/24 1346 by Clive Bright M.S. Peripheral IV Placement Date: 03/26; Placement Time: 1250; Catheter Size: 22 G; Orientation: Left; Location: Forearm; Removal Date: 10/07/24; Removal Time: 175310/07/24 1250 by Clive Bright M.S. 10/07/24 175 by Nehemias Mai R.N. documented in this encounter Social History Tobacco Use Types Packs/Day Years Used Date Smoking Tobacco: Never Smokeless Tobacco: Never Alcohol Use Standard Drinks/Week Comments Yes 0 (1 standard drink = 0.6 oz pur e alcohol) < 4 per month [facility] Utilities Answer Date Recorded In the past 12 months has [employer], gas, oil, or water [employer] threatened to shut off services in your [...] How often do you attend chur or yazdanism services? More than 4 times per year 06/29/2022 Do you belong to any clubs o r organizations such as faith groups, unions, fraternal or athletic groups, or [...] and heating? Not hard at all 06/29/2022 [facility] of Occupat ional Health - Occupational Stress [...] your living situation today? I have a [facility] place to live 02/01/2024 Education Answer Date Recorded What is the highest level of school you have completed or the highest degree you have received? Master's degree (e.g., MA, MS, Renetta, MEd, PSYCHOLOGIST SOCIAL, TICO) 06/29/2022 Comments No Sex and Gender Information Value Date Recorded Sex Assigned at Female 06/29/2022 11:48 AM CDT Legal Sex Female 10:10 PM CLAIM PROCESSING SPECIALIST Gender Identity Female 06/29/2022 11:48 AM CDT Sexual Orientation Straight 06/29/2022 11 :48 AM CDT documented as of this encounter OR Notes * Anesthesia Postprocedure Evaluation - Mitchell Mcdowell M.D., Ph.D. - 10/07/2024 2:02 PM CST Patient: Leeann Weir Procedure Summary Date: 10/07/24 Room / Location: [address] 01 [facility] in [place], [place] Anesthesia Start: 1228 Anesthesia Stop: 1359 Procedures: URETEROSCOPY, LEFT. (Left) CYSTOURETHROSCOPY, PLACEMENT URETERAL STENT, LEFT. (Left) RETROGRADE PYELOGRAM, LEFT. (Left) Diagnosis: Stone Kidney And Ureteral Nephrolithiasis (Stone Kidney And Ureteral [N20.2], Nephrolithiasis [N20.0].) Providers: Efrain Valadez M.D. Responsible Provider: Mitchell Mcdowell M.D., Ph.D. Anesthesia Type: general ASA Status: 2 Anesthesia Type: general Last vitals Vitals Value Taken Time BP 143/92 10/07/24 1400 Temp Pulse 79 10/07/24 1402 Resp 21 10/07/24 1402 SpO2 96 % 10/07/24 1402 Vitals shown include unfiled device data. Please reference Vitals flowsheet for most recent vital signs. Anesthesia Post Evaluation Cardiovascular status: hemodynamics (HR & BP) acceptable Respiratory status: patent airway with spontaneous effort Temperature: normothermic Oxygen requirements: room air Level of consciousness: awake Pain score: pain adequately controlled and/or at baseline Post Op nausea/vomiting: none Hydration status: euvolemic Notable Events No notable events documented. M PROCESSING SPECIALIST * Anesthesia Procedure Notes - Clive Bright M.S. - 10/07/2024 12:51 PM CLAIM PROCESSING SPECIALIST Associated Order(s): Airway Airway Date/Time: 10/07/2024 12:40 PM Performed by: [...] Procedure outcome: successful Notable Events: no complications M PROCESSING SPECIALIST * Anesthesia Preprocedure Evaluation - Mitchell Mcdowell M.D., Ph.D. - 10/07/2024 11:01 AM CST Preprocedure Anesthesia & H&P Assessment Procedure Summary Date/Time: 10/07/24 1232 Procedures: URETEROSCOPY WITH LASER LITHOTRIPSY, LEFT. (Left) CYSTOURETHROSCOPY, PLACEMENT URETERAL STENT, LEFT. (Left) RETROGRADE PYELOGRAM, LEFT. (Left) Diagnosis: Stone Kidney And Ureteral [N20.2] Nephrolithiasis [N20.0] Pre-op diagnosis: Stone Kidney And Ureteral [N20.2], Nephrolithiasis [N20.0]. Location: [place] [address] / [facility] in [place], [place] Providers: Efrain Valadez M.D. Pertinent components of the patient's history including current problem list, medical history, surgical history, family history, social history, medications and allergies were reviewed. Present illness and pre-op diagnosis were confirmed. The planned surgery / procedure was verified with the patient / legal guardian. The patient's general health condition remains unchanged RELEVANT COMORBID CONDITIONS No relevant active problems GERD - on PriLOSEC Hypothyroid - on replacement therapy MVP OBJECTIVE PHYSICAL EXAMINATION Airway (HEENT) Mallampati: II TM Distance: >3 FB Neck ROM: Full Mouth Opening: >3 cm Cardiovascular Rhythm: Regular Rate: Normal Cardiovascular Assessment: cardiovascular normal Functional Capacity: >4 METS Pulmonary Pulmonary Assessment: Clear General / Constitutional Constitutional Assessment: Normal General State of Health:: healthy appearing and calm Neurological Neurologic Assessment: alert and alert and oriented x 3 Dental Dental Assessment: dentition intact Echo from 2021: Final Impressions: 1. Normal LV size, normal wall thickness, normal global systolic function with an estimated EF of 60 - 65%. 2. The mitral valve exhibits mild bileaflet prolapse, trace mitral regurgitation. 3. The aortic valve is normal and trileaflet, no stenosis and no regurgitation. 4. The ascending aorta is borderline dilated with a maximal diameter of 3.9 cm. ASSESSMENT / PLAN ANESTHESIA PLAN ASA: 2 Anesthesia Plan: general Patient seen and allergies reviewed, anesthesia plan and risks discussed directly with patient /legal guardian or through an java programmer. The use of blood products not discussed Approval to Proceed: approved for anesthesia M PROCESSING SPECIALIST M PROCESSING SPECIALIST documented in this encounter Plan of Treatment Upcoming Encounters Date Type Department Care Team (Late st Contact Info) Description 10/13/2024 1:00 PM CLAIM PROCESSING SPECIALIST Procedure visit Department of Urology in [place], [place] [address] [place] [phone] Mohini Larson M.D. [address] [place] [phone] 11/30/2024 7:30 AM CLAIM PROCESSING SPECIALIST Appointment Department of Radiology, [facility], in [place], [place] [address] [place] [phone] Mohini Larson M.D. [address] [place] [phone] 11/30/2024 3:45 PM CLAIM PROCESSING SPECIALIST Office Visit Department of Urology in [place], [place] [address] [place] [phone] Mohini Ang, MPAS, P.A.-C. [address] [place] [phone] documented as of this encounter Procedures Procedure Name Priority Date/Time Associated Diagnosis Comments LDA ANE ENDOTRACHEAL AIRWAY Routine 10/07/2024 12:40 PM CLAIM PROCESSING SPECIALIST documented in this encounter Results * LDA ANE ENDOTRACHEAL AIRWAY (10/07/2024 12:40 PM CLAIM PROCESSING SPECIALIST) Narrative Clive Bright M.S. - 10/07/2024 12:40 PM CLAIM PROCESSING SPECIALIST Clive Bright M.S. 10/07/2024 12:53 PM Airway [...] Mcdowell M.D., Ph.D. ANESTHESIA ORDERABLES Final Result documented in this encounter Visit Diagnoses Not on filedocumented in this encounter Administered Medications Inactive Administered Medications - up to 3 most recent administrations Medication Order MAR Action Action Date Dose Rate Site ciprofloxacin in D5W IVPB 400 mg (Cipro) 400 mg, intravenous, at 200 mL/hr, Administer over 60 Minutes, Once, On Irish 10/07/24 at 1200, For 1 dose, Intra-Op, Drug Monitoring Program: Pharmacist to adjust medication dosing based on indication and drug clearance factors., Indications: Prophylaxis, surgicalIndications:Prophylaxis, surgical Given 10/07/2024 12:53 PM CLAIM PROCESSING SPECIALIST 200 mg dexAMETHasone injection (Decadron) intravenous, As needed, Starting on Irish 10/07/24 at 1254, Anesthesia Intra-op Given 10/07/2024 12:54 PM CLAIM PROCESSING SPECIALIST 8 mg fentaNYL injection (Sublimaze) intravenous, As needed, Starting on Irish 10/07/24 at 1239, Anesthesia Intra-op Given 10/07/2024 12:39 PM CLAIM PROCESSING SPECIALIST 50 mcg Lactated Ringer's intravenous, Continuous Infusion: Per Instructions PRN, Starting on Irish 10/07/24 at 1233, Anesthesia Intra-op New Bag 10/07/2024 12:33 PM CLAIM PROCESSING SPECIALIST lidocaine (PF) (cardiac) injection intravenous, As needed, Starting on Irish 10/07/24 at 1240, Anesthesia Intra-op Given 10/07/2024 12:40 PM CLAIM PROCESSING SPECIALIST 100 mg ondansetron (PF) injection (Zofran) intravenous, As needed, Starting on Irish 10/07/24 at 1334, Anesthesia Intra-op Given 10/07/2024 1:34 PM CLAIM PROCESSING SPECIALIST 4 mg phenylephrine injection intravenous, As needed, Starting on Irish 10/07/24 at 1325, Anesthesia Intra-op Given 10/07/2024 1:27 PM CLAIM PROCESSING SPECIALIST 100 mcg Given 10/07/2024 1:26 PM CLAIM PROCESSING SPECIALIST 100 mcg propofoL injection (Diprivan) intravenous, As needed, Starting on Irish 10/07/24 at 1238, Anesthesia Intra-op Given 10/07/2024 12:39 PM CLAIM PROCESSING SPECIALIST 50 mg Given 10/07/2024 12:38 PM CLAIM PROCESSING SPECIALIST 150 mg rocuronium injection (Zemuron) intravenous, As needed, Starting on Irish 10/07/24 at 1238, Anesthesia Intra-op Given 10/07/2024 12:38 PM CLAIM PROCESSING SPECIALIST 70 mg sugammadex injection (Bridion) intravenous, As needed, Starting on Irish 10/07/24 at 1341, Anesthesia Intra-op Given 10/07/2024 1:45 PM CLAIM PROCESSING SPECIALIST 200 mg Given 10/07/2024 1:41 PM CLAIM PROCESSING SPECIALIST 300 mg documented in this encounter Care Teams Sandal Parts Assembler Relationship Specialty Start Date End Date Elsewhere, Pcp PCP - General Internal Medicine 06/28/22 documented as of this encounter
--- OUTSIDE RECORDS SUMMARY | 2024-10-11 14:34 | XMS_ITS | Encounter Summary ---
Author Organization [facility] Address [address] [place] [address] Care Team Providers Care Director Of Sales And Marketing Name Role Phone Elsewhere, Pcp Primary Care Provider Unavailabl e Encounter Details Date Type Department Care Team (Late st Contact Info) Description 10/07/2024 12:32 PM EXTENSION SERVICE SPECIALIST - 10/07/2024 2:33 PM EXTENSION SERVICE SPECIALIST Surgery [facility] [address] [place] [phone] Efrain Valadez M.D. [address] [place] [phone] URETEROSCOPY, LEFT. Social History Tobacco Use Types Packs/Day Years Used Date Smoking Tobacco: Never Smokeless Tobacco: Never Alcohol Use Standard Drinks/Week Comments Yes 0 (1 standard drink = 0.6 oz pur e alcohol) < 4 per month [facility] Utilities Answer Date Recorded In the past [...] How often do you attend chur or pentecostalism services? More than 4 times per year 06/29/2022 Do you belong to any clubs o r organizations such as hoahaoism groups, unions, fraternal or athletic groups, or [...] and heating? Not hard at all 06/29/2022 [facility] of Occupat ional Health - Occupational Stress [...] your living situation today? I have a [facility] place to live 02/01/2024 Education Answer Date Recorded What is the highest level of school you have completed or the highest degree you have received? Master's degree (e.g., MA, MS, Renetta, MEd, MULTIPLEX OPERATOR, TICO) 06/29/2022 Comments No Sex and Gender Information Value Date Recorded Sex Assigned at Female 06/29/2022 11:48 AM CDT Legal Sex Female 10:10 PM EXTENSION SERVICE SPECIALIST Gender Identity Female 06/29/2022 11:48 AM CDT Sexual Orientation Straight 06/29/2022 11 :48 AM CDT documented as of this encounter Last Filed Vital Signs Vital Sign Reading Time Taken Comments Blood Pressure 145/89 10/07/2024 2:30 PM EXTENSION SERVICE SPECIALIST Pulse 78 10/07/2024 2:30 PM EXTENSION SERVICE SPECIALIST Temperature 36.7 C (98.1 F) 10/07/2024 1:54 PM EXTENSION SERVICE SPECIALIST Respiratory Rate 16 10/07/2024 2:30 PM EXTENSION SERVICE SPECIALIST Oxygen Saturation 96% 10/07/2024 2:30 PM EXTENSION SERVICE SPECIALIST Inhaled Oxygen Concentration - - Weight 75.6 kg (166 lb 10.7 oz) 10/07/2024 9:56 AM EXTENSION SERVICE SPECIALIST Height 167 cm (5' 5.75) 10/07/2024 9:56 AM EXTENSION SERVICE SPECIALIST Body Mass Index 27.11 10/07/2024 9:56 AM EXTENSION SERVICE SPECIALIST documented in this encounter Medications at Time of Discharge [...] stent removal 1 tablet 10/07/2024 3:49 PM EXTENSION SERVICE SPECIALIST 10/12/2024 4 levothyroxine (SYNTHROID, LEVOTHROID) 100 mcg tablet Take 100 mcg by mouth daily. 04/30/2022 omeprazole (PriLOSEC) [address] capsule Take 20 mg by mouth daily before morning meal. oxyBUTYnin (Ditropan) 5 mg tablet Take 1 tablet (5 mg total) by mouth 3 (three) times a day as needed (bladder spams) for up to 14 days. 42 tablet 10/07/2024 3:49 PM EXTENSION SERVICE SPECIALIST 10/07/2024 4 Paxlovid 300 mg (150 mg x 2)-100 [...] ureteral stent 30 capsule 10/07/2024 3:49 PM EXTENSION SERVICE SPECIALIST 10/07/2024 5 documented as of this encounter OR Notes * Op Note - Mohini Larson M.D. - 10/07/2024 1:04 PM CST Pre-op Diagnosis 1. Left non-obstructing nephrolithiasis Post-op Diagnosis 1. Left non-obstructing nephrolithiasis Procedure 1. Cystourethroscopy 2. Left ureteroscopy with basket stone extraction 3. Left retrograde pyelogram with intraoperative interpretation 4. Left ureteral stent placement under fluoroscopy Program Manufacturing Leader A assistant finance manager actively participated and was necessary for one or more of the following: opening, exposure and visualization, maintaining hemostasis, wound closure resulting in its safe and expeditious completion. Findings Findings 1. On cystourethroscopy the bladder was grossly normal without mucosal lesions. The bilateral ureteral orifices were present in orthotopic position 2. On left ureteroscopy there were no stones within the left ureter. Within the left kidney there was an approximately 4 mm stone in an upper pole medial calyx. This was able to be basket extracted. 3. On left retrograde pyelogram there were no filling defects or contrast extravasation. 4. Successful left ureteral stent on a string placement. Drains: 1. Left 6-Bangladeshi by 24cm ureteral stent on a string secured to the left thigh Specimens: 1. Left renal aspirate for urine culture 2. Left renal stone for stone analysis Complications None Operative Note Narrative Indications: The patient is a 69 year-old female who presented to the ED with left flank pain foundto have a 3mm L UVJ stone and additional 4mm L renal stone. Repeat CT 10/05 demonstrated passage of the distal ureteral stone but patient desires to still treat the non-obstructing renal stone. The risks and benefits of the above-named procedure were discussed and the patient agreed to proceed. Procedure Details: The patient was identified in the pre-operative holding area. Consent was verified. The correct side of the procedure was marked. The patient was taken to the operating room and placed supine on the operating table. General anesthesia was induced. The patient was then moved to the dorsal lithotomy position and prepped and draped in the usual sterile fashion. A timeout was performed involving alI members of the OR team confirming the patient's identity and planned procedure. Preoperative antibiotics were administered with ciprofloxacin. To begin, we advanced a 22 Bangladeshi rigid cystoscope into the bladder per urethra. The bladder was grossly without mucosal lesions. The bilateral ureteral orifices were present in orthotopic position. We then turned our attention to the left ureteral orifice and advanced a 0.035 sensor guidewire into the renal pelvis. We then advanced a 10 Bangladeshi dual-lumen ureteral catheter over the wire to the level of the left mid ureter and place a second sensor guidewire. The dual-lumen ureteral catheter was then removed and 1 of the wires was secured to the drapes as a safety. Next we advanced a digital flexible ureteroscope into the left renal pelvis. On ureteroscopy we noted no stones within the left ureter. Within the left kidney there was an approximately 4 mm nonobstructing stone in a left upper pole medial calyx. This was able to be grasped with a 1.9 Bangladeshi Zulutaureteroscope basket and removed fully intact. The stone was then sent for stone analysis. The ureter oscope was then advanced back into the left kidney and we performed pyeloscopy with contrast irrigation to ensure inspection of all of the calyces. There were no remaining stones. There were no obvious filling defects or contrast extravasation. The ureteroscope was then removed under direct vision and the ureter was healthy and patent. We then deployed a 6-Bangladeshi by 24cm ureteral stent on a string. There was good formation of the proximal within the left renal pelvis and the distal curl was well formed within the bladder. A cystoscope was then reinserted and the bladder was drained. The cystoscope was then removed. The string of the stent was then secured to the left thigh with Mastisol and Tegaderm. She was extubated without difficulty and transported to the PACU having tolerated the procedure well. Plan - Follow up in clinic on 10/12/2024 for nursing visit for left ureteral stent removal. - Follow up in 6-8 weeks with a renal ultrasound prior to the appointment. Mohini Larson M.D. Cosigned by Efrain Valadez M.D. at 10/07/2024 2:11 PM EXTENSION SERVICE SPECIALIST NSION SERVICE SPECIALIST NSION SERVICE SPECIALIST * Brief Op Note - Mohini Larson M.D. - 10/07/2024 1:04 PM CST Pre-op Diagnosis Stone Kidney And Ureteral,Nephrolithiasis Post-op Diagnosis Stone Kidney And Ureteral,Nephrolithiasis Findings 4mm non-obstructing left upper pole stone, basket extracted Left 6x24 stent on a string Complications None Mohini Larson M.D. NSION SERVICE SPECIALIST documented in this encounter Plan of Treatment Upcoming Encounters Date Type Department Care Team (Late st Contact Info) Description 10/13/2024 1:00 PM EXTENSION SERVICE SPECIALIST Procedure visit Department of Urology in [place], [place] [address] [place] [phone] Mohini Larson M.D. [address] [place] [phone] 11/30/2024 7:30 AM EXTENSION SERVICE SPECIALIST Appointment Department of Radiology, [facility], in [place], [place] [address] [place] [phone] Mohini Larson M.D. [address] [place] [phone] 11/30/2024 3:45 PM EXTENSION SERVICE SPECIALIST Office Visit Department of Urology in [place], [place] [address] [place] [phone] Mohini Ang, MPAS, P.A.-C. [address] [place] [phone] Scheduled Orders Name Type Priority Associated Diagnoses Order Schedule Gram Stain Microbiology Routine Stone Kidney And Ureteral Nephrolithiasis Release Upon Ordering for 1 Occurrences starting 10/07/2024 until 10/16/2024 Kidney Stone Analysis Lab Routine Stone Kidney And Ureteral Nephrolithiasis Release Upon Ordering for 1 Occurrences starting 10/07/2024 US Kidneys Bilateral with Bladder Imaging RAD - Routine (most inpatients and all outpatients) Nephrolithiasis Expected: 11/18/2024 (Approximate), Expires: 01/05/2026 Scheduled Referrals Name Type Priority Associated Diagnoses Orde r Schedule Urology office visit (clinic) Outpatient Referral Routine Expected: 11/18/2024 (Approximate), Expires: 01/05/2026 documented as of this encounter Procedures Procedure Name Priority Date/Time Associated Diagnosis Comments FL FLUORO LESS THAN 1 HOUR RAD - Routine (most inpatients and all outpatients) 10/07/2024 1:55 PM EXTENSION SERVICE SPECIALIST BACTERIAL CULTURE, AEROBIC + SUSC, URINE Routine 10/07/2024 1:21 PM EXTENSION SERVICE SPECIALIST Stone Kidney And Ureteral Nephrolithiasis GRAM'S ST, U Routine 10/07/2024 1:21 PM EXTENSION SERVICE SPECIALIST RETROGRADE PYELOGRAM 10/07/2024 12:13 PM EXTENSION SERVICE SPECIALIST Stone Kidney And Ureteral Nephrolithiasis CYSTOURETHROSCOPY WITH PLACEMENT URETERAL STENT 10/07/2024 12:13 PM EXTENSION SERVICE SPECIALIST Stone Kidney And Ureteral Nephrolithiasis URETEROSCOPY WITH LASER LITHOTRIPSY 10/07/2024 12:13 PM EXTENSION SERVICE SPECIALIST Stone Kidney And Ureteral Nephrolithiasis ECG STAT 10/07/2024 10:03 AM EXTENSION SERVICE SPECIALIST documented in this encounter Results * FL Fluoro Less Than 1 Hour (10/07/2024 1:55 PM EXTENSION SERVICE SPECIALIST) Narrative [id number] - 10/07/2024 1:55 PM EXTENSION SERVICE SPECIALIST This exam does not require a radiologist review or interpretation. Please refer to the patient's medical record on this date for clinical details. us Efrain Valadez M.D. IMWil FLUOROSCOPY PROCEDURES Fi nal Result [id number] NA * Gram Stain, Urine (10/07/2024 1:21 PM EXTENSION SERVICE SPECIALIST) Source Urine, Urine, Ureter Left 10/07/2024 2:03 PM EXTENSION SERVICE SPECIALIST DTL Gram Stain, U Negative Negative 10/07/2024 3:07 PM EXTENSION SERVICE SPECIALIST DTL Urine 10/07/2024 1:21 PM EXTENSION SERVICE SPECIALIST 10/07/2024 2:03 PM EXTENSION SERVICE SPECIALIST us Efrain Valadez M.D. LAB URINE ORDERABLES Final Re sult Performing Organization Address [facility] Co de Phone Number [facility] [address] [place] [address] * Bacterial Culture, Aerobic + Susceptibility, Urine (10/07/2024 1:21 PM EXTENSION SERVICE SPECIALIST) Pathologist [facility] Urine Culture No growth after 1 day of incubation. 10/08/2024 10:39 AM EXTENSION SERVICE SPECIALIST DTL Urine (Urine, Ureter Left) 10/07/2024 1:21 PM EXTENSION SERVICE SPECIALIST us Efrain Valadez M.D. LAB MICROBIOLOGY - GENERAL OR DERABLES Final Result Performing Organization Address [facility] Co de Phone Number [facility] [address] [place] [address], [facility] [address] [place] [address] * ECG 12 Lead (10/07/2024 10:03 AM EXTENSION SERVICE SPECIALIST) Ventricular Rate ECG/Min 88 BPM MUSE FL Interval 156 ms MUSE QRSD Interval 76 ms MUSE QT Interval 358 ms MUSE QTC Interval 433 ms MUSE P Encinal 58 degrees MUSE R Encinal 36 degrees MUSE T Wave Encinal 63 degrees MUSE 10/07/2024 10:0 3 AM EXTENSION SERVICE SPECIALIST 10/07/2024 10:16 AM EXTENSION SERVICE SPECIALIST Impressions MUSE - 10/07/2024 10:16 AM EXTENSION SERVICE SPECIALIST Normal sinus rhythm with sinus arrhythmia Possible Lateral infarct No previous ECGs available Reviewed by DAREK Ashby Narrative Procedure Note Federico Deutsch M.D., Ph.D. - 10/07/2024 IMPRESSION: Normal sinus rhythm with sinus arrhythmia Possible Lateral infarct No previous ECGs available Reviewed by DAREK Ashby us Efrain Valadez M.D. ECG ORDERABLES Final Result MUSE NA documented in this encounter Visit Diagnoses Diagnosis Stone Kidney And Ureteral Nephrolithiasis Stone Kidney And Ureteral Nephrolithiasis documented in this encounter Admitting Diagnoses Diagnosis Stone Kidney And Ureteral Nephrolithiasis documented in this encounter Administered Medications Inactive Administered Medications - up to 3 most recent administrations Medication Order MAR Action Action Date Dose Rate Site acetaminophen tablet 1,000 mg (TylenoL) 1,000 mg, oral, Once, On Irish 10/07/24 at 1100, For 1 dose, Pre-Op, PreOp give in preprocedural area. Given 10/07/2024 10:34 AM EXTENSION SERVICE SPECIALIST 1,000 mg acetaminophen tablet 1,000 mg (TylenoL) 1,000 mg, oral, Once as needed, other, If patient has not received in the previous 6 hours, Starting on Irish 10/07/24 at 1418, For 1 dose, PACU (only), Oral unless RASS less than -1 or nausea/vomiting. Do not use if given in last 6 hours Given 10/07/2024 4:43 PM EXTENSION SERVICE SPECIALIST 1,000 mg aprepitant capsule 40 mg (Emend) 40 mg, oral, Once, On Irish 10/07/24 at 1100, For 1 dose, Pre-Op, Restriction Criteria (Pharmacy will review and approve if criteria met): Patient does not have IV access and cannot receive fosaprepitant IV Given 10/07/2024 10:35 AM EXTENSION SERVICE SPECIALIST 40 mg chlorhexidine 0.12 % mouthwash 15 mL (Peridex) 15 mL, swish & spit, Once as needed, Chlorhexidine mouthwash (Peridex) should be given if patient did not complete oral care, if completion is greater than 4 hours prior to surgery or procedure start time and they do not have the opportunity to brush their teeth now (or at this time)., Starting on Irish 10/07/24 at 0948, For 1 dose, Pre-Op, Instruct patient to swish entire content of Chlorhexidine 0.12% mouthwash (PERIDEX) 15 mL cup for 30 seconds, then spit, swish & spit. If patient is at risk for aspiration, apply Chlorhexidine 0.12% mouthwash to a swab and gently swab the patient's teeth and gums. Ensure swab is not oversaturated. fentaNYL injection 25 mcg (Sublimaze) 25 mcg, intravenous, Every 2 min PRN, For pain 4 or greater (maximum 100 mcg). If max dose of Fentanyl is reached and if pain is greater than 4, discontinue Fentanyl: give Hydromorphone, Starting on Irish 10/07/24 at 1418, PACU (only) Given 10/07/2024 2:26 PM EXTENSION SERVICE SPECIALIST 25 mcg Given 10/07/2024 2:22 PM EXTENSION SERVICE SPECIALIST 25 mcg haloperidol lactate injection 1 mg (HaldoL) 1 mg, intravenous, Every 6 hours PRN, nausea, vomiting, Starting on Irish 10/07/24 at 1440, For 48 hours, Total of 3 doses in 24 hour period. RASS must be -2 or higher to administer. Reassess for nausea or vomiting after at least 10 minutes. If nausea or vomiting persists administer next ordered antiemetic medications (order for antiemetic medication administration ondansetron then haloperidol then prochlorperazine) Given 10/07/2024 2:42 PM EXTENSION SERVICE SPECIALIST 1 mg iohexoL 350 mg iodine/mL solution (Omnipaque) As needed, Starting on Irish 10/07/24 at 1334, Intra-Op Given 10/07/2024 1:34 PM EXTENSION SERVICE SPECIALIST 4 mL Left Ureter Lactated Ringer's 20 mL/hr, intravenous, Continuous, Starting on Irish 10/07/24 at 1415, PACU & Post-Op Continued from OR 10/07/2024 2:27 PM EXTENSION SERVICE SPECIALIST 20 mL/hr 20 mL/hr metoprolol tablet 12.5 mg (Lopressor) 12.5 mg, oral, Once as needed, if patient did not take their last scheduled dose of beta murray prior to arrival, Starting on Irish 10/07/24 at 1031, For 1 dose, Pre-Op, Do not give if patient does not take scheduled beta blockers, if patient is receiving intravenous vasopressors or inotropes, if heart rate is less than 50 beats per minute, if systolic blood pressure is less than 90 mmHg or if diastolic blood pressure is less than 40 mmHg, or if patient has an allergy to metoprolol. oxyCODONE IR tablet 10 mg (Roxicodone) 10 mg, oral, Once as needed, For pain 4 or greater, Starting on Irish 10/07/24 at 1418, For 1 dose, PACU (only) Given 10/07/2024 2:22 PM EXTENSION SERVICE SPECIALIST 5 mg sodium chloride 0.9 % injection 10 mL 10 mL, intravenous, As needed, line care, Starting on Irish 10/07/24 at 0948, Pre-Op, Peripheral Intravenous Catheter and Rapid Infusion Catheter, prior to blood sampling, post blood transfusion or post blood sampling sodium chloride 0.9 % injection 3 mL 3 mL, intravenous, As needed, line care, Starting on Irish 10/07/24 at 0948, Pre-Op, Prior to and following infusion and between multiple consecutive infusions: sodium chloride 0.9 % injection sodium chloride 0.9 % injection 3 mL 3 mL, intravenous, Every 12 hours scheduled, First dose on Irish 10/07/24 at 2100, Pre-Op, Peripheral Intravenous Catheter and Rapid Infusion Catheter, when no infusion to maintain patency documented in this encounter Active and Recently Administered Medications Times are shown in EXTENSION SERVICE SPECIALIST. Scheduled Medication Order 10/05/2024 10/06/2024 10/07/2024 acetaminophen tablet 1,000 mg (TylenoL) (COMPLETED) 1,000 mg, oral, Once, On Irish 10/07/24 at 1100, For 1 dose, Pre-Op, PreOp give in preprocedural area. 1034 (Given - Provid er: Pilar Collins, R.N.) aprepitant capsule 40 mg (Emend) (COMPLETED) 40 mg, oral, Once, On Irish 10/07/24 at 1100, For 1 dose, Pre-Op, Restriction Criteria (Pharmacy will review and approve if criteria met): Patient does not have IV access and cannot receive fosaprepitant IV 1035 (Given - Provid er: Pilar Collins, R.N.) ciprofloxacin in D5W IVPB 400 mg (Cipro) (COMPLETED) 400 mg, intravenous, at 200 mL/hr, Administer over 60 Minutes, Once, On Irish 10/07/24 at 1200, For 1 dose, Intra-Op, Drug Monitoring Program: Pharmacist to adjust medication dosing based on indication and drug clearance factors., Indications: Prophylaxis, surgical 1253 (Given - Provid er: Clive Bright M.S.) sodium chloride 0.9 % injection 3 mL 3 mL, intravenous, Every 12 hours scheduled, First dose on Irish 10/07/24 at 2100, Pre-Op, Peripheral Intravenous Catheter and Rapid Infusion Catheter, when no infusion to maintain patency Continuous Medication Order 10/05/2024 10/06/2024 10/07/2024 Lactated Ringer's 20 mL/hr, intravenous, Continuous, Starting on Irish 10/07/24 at 1415, PACU & Post-Op 1427 (Continued from OR - Provider: Jaimie Charles R.N.) PRN Medication Order 10/05/2024 10/06/2024 10/07/2024 acetaminophen tablet 1,000 mg (TylenoL) (COMPLETED)(Linked Group 1) 1,000 mg, oral, Once as needed, other, If patient has not received in the previous 6 hours, Starting on Irish 10/07/24 at 1418, For 1 dose, PACU (only), Oral unless RASS less than -1 or nausea/vomiting. Do not use if given in last 6 hours 1643 (Given - Provid er: Michelle Christina R.N.) chlorhexidine 0.12 % mouthwash 15 mL (Peridex) 15 mL, swish & spit, Once as needed, Chlorhexidine mouthwash (Peridex) should be given if patient did not complete oral care, if completion is greater than 4 hours prior to surgery or procedure start time and they do not have the opportunity to brush their teeth now (or at this time)., Starting on Irish 10/07/24 at 0948, For 1 dose, Pre-Op, Instruct patient to swish entire content of Chlorhexidine 0.12% mouthwash (PERIDEX) 15 mL cup for 30 seconds, then spit, swish & spit. If patient is at risk for aspiration, apply Chlorhexidine 0.12% mouthwash to a swab and gently swab the patient's teeth and gums. Ensure swab is not oversaturated. fentaNYL injection 25 mcg (Sublimaze) 25 mcg, intravenous, Every 2 min PRN, For pain 4 or greater (maximum 100 mcg). If max dose of Fentanyl is reached and if pain is greater than 4, discontinue Fentanyl: give Hydromorphone, Starting on Irish 10/07/24 at 1418, PACU (only) 1422 (Given - Provid er: Jaimie Charles R.N.)1426 (Given - Provider: Jaimie Charles R.N.) haloperidol lactate injection 1 mg (HaldoL) 1 mg, intravenous, Every 6 hours PRN, nausea, vomiting, Starting on Irish 10/07/24 at 1440, For 48 hours, Total of 3 doses in 24 hour period. RASS must be -2 or higher to administer. Reassess for nausea or vomiting after at least 10 minutes. If nausea or vomiting persists administer next ordered antiemetic medications (order for antiemetic medication administration ondansetron then haloperidol then prochlorperazine) 1442 (Given - Provid er: Jaimie Charles R.N.) HYDROmorphone (PF) injection 0.2 mg (Dilaudid) 0.2 mg, intravenous, Every 5 min PRN, moderate pain or score 4-6 of 10, severe pain or score 7-10 of 10, Starting on Irish 10/07/24 at 1418, PACU (only), Up to maximum total dose of 2 mg iohexoL 350 mg iodine/mL solution (Omnipaque) (CANCELED) As needed, Starting on Irish 10/07/24 at 1334, Intra-Op 1334 (Given - Provid er: Mohini Larson M.D.) metoprolol tablet 12.5 mg (Lopressor) 12.5 mg, oral, Once as needed, if patient did not take their last scheduled dose of beta murray prior to arrival, Starting on Irish 10/07/24 at 1031, For 1 dose, Pre-Op, Do not give if patient does not take scheduled beta blockers, if patient is receiving intravenous vasopressors or inotropes, if heart rate is less than 50 beats per minute, if systolic blood pressure is less than 90 mmHg or if diastolic blood pressure is less than 40 mmHg, or if patient has an allergy to metoprolol. naloxone injection 0.2 mg (Narcan) 0.2 mg, intravenous, As needed, respiratory depression, Starting on Irish 10/07/24 at 1552, For RASS Score -4 or less, respiratory rate of less than 8 breaths/min. Notify provider/service and rapid response team (if available at institution). ondansetron (PF) injection 4 mg (Zofran) 4 mg, intravenous, Every 6 hours PRN, nausea, vomiting, Starting on Irish 10/07/24 at 1552, For 48 hours, Reassess for nausea or vomiting after at least 10 minutes. If nausea or vomiting persists administer next ordered antiemetic medications (order for antiemetic medication administration ondansetron then haloperidol then prochlorperazine). ondansetron (PF) injection 4 mg (Zofran) 4 mg, intravenous, Every 6 hours PRN, nausea, vomiting, (If patient has not received in the previous 6 hours), Starting on Irish 10/07/24 at 1418, PACU (only), Administer first. If nausea and vomiting persists, proceed with haloperidol. (order of antiemetic administration - ondansetron then haloperidol then granisetron) oxyCODONE IR tablet 10 mg (Roxicodone) (COMPLETED) 10 mg, oral, Once as needed, For pain 4 or greater, Starting on Irish 10/07/24 at 1418, For 1 dose, PACU (only) 1422 (Given - Provid er: Jaimie Charles R.N.) prochlorperazine injection 5 mg (Compazine) 5 mg, intravenous, Every 6 hours PRN, nausea, vomiting, Starting on Irish 10/07/24 at 1552, For 48 hours, RASS must be -2 or higher to administer. Reassess for nausea/vomiting after at least 10 minutes. If nausea or vomiting persists administer next ordered antiemetic medications (order for antiemetic medication administration ondansetron then haloperidol then prochlorperazine) sodium chloride 0.9 % injection 10 mL 10 mL, intravenous, As needed, line care, Starting on Irish 10/07/24 at 0948, Pre-Op, Peripheral Intravenous Catheter and Rapid Infusion Catheter, prior to blood sampling, post blood transfusion or post blood sampling sodium chloride 0.9 % injection 3 mL 3 mL, intravenous, As needed, line care, Starting on Irish 10/07/24 at 0948, Pre-Op, Prior to and following infusion and between multiple consecutive infusions: sodium chloride 0.9 % injection Linked Groups Order Group 1: acetaminophen tablet 1,000 mg (TylenoL) (COMPLETED)Jump to med 1,000 mg, oral, Once as needed, other, If patient has not received in the previous 6 hours, Starting on Irish 10/07/24 at 1418, For 1 dose, PACU (only), Oral unless RASS less than -1 or nausea/vomiting. Do not use if given in last 6 hours Or acetaminophen injection 1,000 mg (COMPLETED) 1,000 mg, intravenous, at 400 mL/hr, Administer over 15 Minutes, Once as needed, other, If patient has not received in previous 6 hours, Starting on Irish 10/07/24 at 1418, For 1 dose, PACU (only), Oral unless RASS less than -1 or nausea/vomiting. Do not use if given in last 6 hours, Restriction Criteria (Pharmacy will review and approve if criteria met): Unable to take or tolerate medications administered via the enteral route or orally (not just NPO) documented in this encounter Care Teams Director Of Sales And Marketing Relationship Specialty Start Date End Date Elsewhere, Pcp PCP - General Internal Medicine 06/28/22 documented as of this encounter
--- OUTSIDE RECORDS SUMMARY | 2024-10-11 14:34 | XMS_ITS | Encounter Summary ---
Author Organization [facility] Address [address] [place] [address] Care Team Providers Care Building Materials Sales Attendant Name Role Phone Elsewhere, Pcp Primary Care Provider Unavailabl e Encounter Details Date Type Department Care Team (Late st Contact Info) Description 10/07/2024 10:45 AM DISTRIBUTION DISTRICT SUPERVISOR Ancillary Procedure Department of General Surgery Social History Tobacco Use Types Packs/Day Years Used Date Smoking Tobacco: Never Smokeless Tobacco: Never Alcohol Use Standard Drinks/Week Comments Yes 0 (1 standard drink = 0.6 oz pur e alcohol) < 4 per month [facility] Utilities Answer Date Recorded In the past 12 months has e electric, gas, oil, or water [employer] threatened to shut off services in your [...] often do you attend chur ch or pentecostal services? More than 4 times per year 06/29/2022 Do you belong to any clubs o r organizations such as sabianism groups, unions, fraternal or athletic groups, or [...] and heating? Not hard at all 06/29/2022 [facility] of Occupat ional Health - Occupational [...] Master's degree (e.g., MA, MS, Renetta, MEd, SHIPS OR BARGES LOADER, TICO) 06/29/2022 Comments No Sex and Gender Information Value Date Recorded Sex Assigned at Female 06/29/2022 11:48 AM CDT Legal Sex Female 10:10 PM DISTRIBUTION DISTRICT SUPERVISOR Gender Identity Female 06/29/2022 11:48 AM CDT Sexual Orientation Straight 06/29/2022 11 :48 AM CDT documented as of this encounter Plan of Treatment Upcoming Encounters Date Type Department Care Team (Late st Contact Info) Description 10/13/2024 1:00 PM DISTRIBUTION DISTRICT SUPERVISOR Procedure visit Department of Urology in [place], [place] [address] [place] [address] Mohini Larson M.D. 200 [place] [address] 11/30/2024 7:30 AM DISTRIBUTION DISTRICT SUPERVISOR Appointment Department of Radiology, [facility], in [place], [place] [address] [place] [address] Mohini Larson M.D. [address] [place] [address] 11/30/2024 3:45 PM DISTRIBUTION DISTRICT SUPERVISOR Office Visit Department of Urology in [place], [place] [address] [place] [phone] Mohini Ang MPAS, P.A.-C. [address] [place] [address] documented as of this encounter Procedures Procedure Name Priority Date/Time Associated Diagnosis Comments SURGERY IMAGE EXAM Routine 10/07/2024 10 :45 AM DISTRIBUTION DISTRICT SUPERVISOR documented in this encounter Results * CYSTO-Surgery Image Exam (10/07/2024 10:45 AM DISTRIBUTION DISTRICT SUPERVISOR) 10/07/2024 10:4 4 AM DISTRIBUTION DISTRICT SUPERVISOR Narrative IIMS - 10/07/2024 1:41 PM DISTRIBUTION DISTRICT SUPERVISOR This order has been created and auto-finalized to support the import of images acquired without order. The clinical documentation to support these images can be found on the encounter that produced images. us Provider Not In System IMG NON RAD IMAGING PROCE DURES Final Result IIMS NA documented in this encounter Visit Diagnoses Not on filedocumented in this encounter Care Teams Building Materials Sales Attendant Relationship Specialty Start Date End Date Elsewhere, Pcp PCP - General Internal Medicine 06/28/22 documented as of this encounter
--- OUTSIDE RECORDS SUMMARY | 2024-10-11 14:34 | XMS_ITS | Encounter Summary ---
Author Organization [facility] Address [address] [place] [address] Care Team Providers Care Photogrammetric Engineer Name Role Phone Elsewhere, Pcp Primary Care Provider Unavailabl e Reason for Referral * Outpatient (Routine) - Authorized Specialty Diagnoses / Procedures Referred By Pascale lema Referred To Contact Urology Mohini Larson M.D. [address] [place] [address] Phone: tel: fax: Efrain Valadez M.D. [address] [place] [address] Phone: tel: fax: Referral ID Status Reason Start Date Expiration Date V isits Requested Visits Authorized [id number] Authorized 10/07/2024 04/08/2026 1 1 Scheduling Instructions Schedule with Rory or Mohini Ang IAL INVESTIGATOR * Outpatient (Routine) - Authorized Specialty Diagnoses / Procedures Referred By Pascale t Referred To Contact Diagnoses Nephrolithiasis Procedures US Kidneys Bilateral with Bladder Mohini Larson M.D. [address] [place] [address] Phone: tel: fax: [facility] [facility] Referral ID Status Reason Start Date Expiration Date V isits Requested Visits Authorized [id number] Authorized 10/07/2024 10/07/2025 1 1 IAL INVESTIGATOR * Outpatient (Routine) - Authorized Specialty Diagnoses / Procedures Referred By Contimelda t Referred To Contact Diagnoses Nephrolithiasis Procedures Cysto w/stent removal Mohini Larson M.D. [address] [place] [address] Phone: tel: fax: [facility] Referral ID Status Reason Start Date Expiration Date V isits Requested Visits Authorized [id number] Authorized 10/07/2024 10/07/2025 1 1 IAL INVESTIGATOR Encounter Details Date Type Department Care Team (Latest Contact Info) Description 10/07/2024 9:28 AM SPECIAL INVESTIGATOR - 10/07/2024 5:55 PM SPECIAL INVESTIGATOR Hospital Encounter [facility] [address] [place] [address] Efrain Valadez M.D. [address] [place] [address] [facility]; Nephrolithiasis Discharge Disposition: Home or Self Care Social History Tobacco Use Types Packs/Day Years Used Date Smoking Tobacco: Never Smokeless Tobacco: Never Alcohol Use Standard Drinks/Week Comments Yes 0 (1 standard drink = 0.6 oz pur e alcohol) < 4 per month [facility] Utilities Answer Date Recorded In the past 12 months has General Specific, gas, oil, or water [employer] threatened to shut off services in [...] any clubs o r organizations such as mandaen groups, unions, fraternal or athletic groups, or [...] and heating? Not hard at all 06/29/2022 [facility] of Occupat ional Health - Occupational Stress [...] your living situation today? I have a [facility] place to live 02/01/2024 Education Answer Date Recorded What is the highest level of school you have completed or the highest degree you have received? Master's degree (e.g., MA, MS, Renetta, MEd, WINDROWER OPERATOR, TICO) 06/29/2022 Comments No Sex and Gender Information Value Date Recorded Sex Assigned at Female 06/29/2022 11:48 AM CDT Legal Sex Female 10:10 PM SPECIAL INVESTIGATOR Gender Identity Female 06/29/2022 11:48 AM CDT Sexual Orientation Straight 06/29/2022 11 :48 AM CDT documented as of this encounter Last Filed Vital Signs Vital Sign Reading Time Taken Comments Blood Pressure 151/95 10/07/2024 5:00 PM SPECIAL INVESTIGATOR Pulse 80 10/07/2024 5:00 PM SPECIAL INVESTIGATOR Temperature 36.4 C (97.5 F) 10/07/2024 2:59 PM SPECIAL INVESTIGATOR Respiratory Rate 28 10/07/2024 3:15 PM SPECIAL INVESTIGATOR Oxygen Saturation 96% 10/07/2024 5:00 PM SPECIAL INVESTIGATOR Inhaled Oxygen Concentration - - Weight 75.6 kg (166 lb 10.7 oz) 10/07/2024 9:56 AM SPECIAL INVESTIGATOR Height 167 cm (5' 5.75) 10/07/2024 9:56 AM SPECIAL INVESTIGATOR Body Mass Index 27.11 10/07/2024 9:56 AM SPECIAL INVESTIGATOR documented in this encounter Medications at Time [...] stent removal 1 tablet 10/07/2024 3:49 PM SPECIAL INVESTIGATOR 10/12/2024 4 levothyroxine (SYNTHROID, LEVOTHROID) 100 mcg tablet Take 100 mcg by mouth daily. 04/30/2022 omeprazole (PriLOSEC) [address] capsule Take 20 mg by mouth daily before morning meal. oxyBUTYnin (Ditropan) 5 mg tablet Take 1 tablet (5 mg total) by mouth 3 (three) times a day as needed (bladder spams) for up to 14 days. 42 tablet 10/07/2024 3:49 PM SPECIAL INVESTIGATOR 10/07/2024 4 Paxlovid 300 mg (150 mg [...] ureteral stent 30 capsule 10/07/2024 3:49 PM SPECIAL INVESTIGATOR 10/07/2024 5 documented as of this encounter OR Notes * Op Note - Mohini Larson M.D. - 10/07/2024 1:04 PM CST Pre-op Diagnosis 1. Left non-obstructing nephrolithiasis Post-op Diagnosis 1. Left non-obstructing nephrolithiasis Procedure 1. Cystourethroscopy 2. Left ureteroscopy with basket stone extraction 3. Left retrograde pyelogram with intraoperative interpretation 4. Left ureteral stent placement under fluoroscopy Computer Security Specialist A surgical first assistant actively participated and was necessary for one [...] on a string placement. Drains: 1. Left 6-Turkish by 24cm ureteral stent on a string [...] ciprofloxacin. To begin, we advanced a 22 Turkish rigid cystoscope into the bladder per urethra. The bladder was grossly without mucosal lesions. The bilateral ureteral orifices were present in orthotopic position. We then turned our attention to the left ureteral orifice and advanced a 0.035 sensor guidewire into the renal pelvis. We then advanced a 10 Turkish dual-lumen ureteral catheter over the wire to [...] able to be grasped with a 1.9 Turkish Dakotaureteroscope basket and removed fully intact. The stone [...] healthy and patent. We then deployed a 6-Turkish by 24cm ureteral stent on a string. [...] Efrain Valadez M.D. at 10/07/2024 2:11 PM SPECIAL INVESTIGATOR IAL INVESTIGATOR IAL INVESTIGATOR * Brief Op Note - Mohini Larson M.D. - 10/07/2024 1:04 PM CST Pre-op Diagnosis [facility],Nephrolithiasis Post-op Diagnosis [facility],Nephrolithiasis Findings 4mm non-obstructing left upper pole stone, basket extracted Left 6x24 stent on a string Complications None Mohini Larson M.D. IAL INVESTIGATOR documented in this encounter Plan of Treatment Upcoming Encounters Date Type Department Care Team (Late st Contact Info) Description 10/13/2024 1:00 PM SPECIAL INVESTIGATOR Procedure visit Department of Urology in [place], [place] [address] [place] [phone] Mohini Larson M.D. [address] [place] [phone] 11/30/2024 7:30 AM SPECIAL INVESTIGATOR Appointment Department of Radiology, [facility], in [place], [place] [address] [place] [phone] Mohini Larson M.D. [address] [place] [phone] 11/30/2024 3:45 PM SPECIAL INVESTIGATOR Office Visit Department of Urology in [place], [place] [address] [place] [phone] Mohini Ang, MPAS, P.A.-C. [address] [place] [phone] Scheduled Orders Name Type Priority Associated Diagnoses [...] inpatients and all outpatients) 10/07/2024 1:55 PM SPECIAL INVESTIGATOR BACTERIAL CULTURE, AEROBIC + SUSC, URINE Routine 10/07/2024 1:21 PM SPECIAL INVESTIGATOR [facility] Nephrolithiasis GRAM'S ST, U Routine 10/07/2024 1:21 PM SPECIAL INVESTIGATOR RETROGRADE PYELOGRAM 10/07/2024 12:13 PM SPECIAL INVESTIGATOR [facility] Nephrolithiasis CYSTOURETHROSCOPY WITH PLACEMENT URETERAL STENT 10/07/2024 12:13 PM SPECIAL INVESTIGATOR [facility] Nephrolithiasis URETEROSCOPY WITH LASER LITHOTRIPSY 10/07/2024 12:13 PM SPECIAL INVESTIGATOR [facility] Nephrolithiasis ECG STAT 10/07/2024 10:03 AM SPECIAL INVESTIGATOR documented in this encounter Results * FL Fluoro Less Than 1 Hour (10/07/2024 1:55 PM SPECIAL INVESTIGATOR) Narrative [id number] - 10/07/2024 1:55 PM SPECIAL INVESTIGATOR This exam does not require a radiologist review or interpretation. Please refer to the patient's medical record on this date for clinical details. us Efrain Valadez M.D. IMG FLUOROSCOPY PROCEDURES Fi nal Result [id number] NA * Gram Stain, Urine (10/07/2024 1:21 PM SPECIAL INVESTIGATOR) Source Urine, Urine, Ureter Left 10/07/2024 2:03 PM SPECIAL INVESTIGATOR DTL Gram Stain, U Negative Negative 10/07/2024 3:07 PM SPECIAL INVESTIGATOR DTL Urine 10/07/2024 1:21 PM SPECIAL INVESTIGATOR 10/07/2024 2:03 PM SPECIAL INVESTIGATOR us Efrain Valadez M.D. LAB URINE ORDERABLES Final Re sult Performing Organization Address [facility] Co de Phone Number [facility] [address] 200 [place] [address] * Bacterial Culture, Aerobic + Susceptibility, Urine (10/07/2024 1:21 PM SPECIAL INVESTIGATOR) Pathologist [facility] Urine Culture No growth after 1 day of incubation. 10/08/2024 10:39 AM SPECIAL INVESTIGATOR DT Urine (Urine, Ureter Left) 10/07/2024 1:21 PM SPECIAL INVESTIGATOR us Efrain Valadez M.D. LAB MICROBIOLOGY - GENERAL OR DERABLES Final Result Performing Organization Address [facility] de Phone Number [facility] [place] [address] 200 [place] [address] * ECG 12 Lead (10/07/2024 10:03 AM SPECIAL INVESTIGATOR) Ventricular Rate ECG/Min 88 BPM MUSE IN Interval 156 ms MUSE QRSD Interval 76 ms MUSE QT Interval 358 ms MUSE QTC Interval 433 ms MUSE P Austin 58 degrees MUSE R Austin 36 degrees MUSE T Wave [place] 63 degrees MUSE 10/07/2024 10:0 3 AM SPECIAL INVESTIGATOR 10/07/2024 10:16 AM SPECIAL INVESTIGATOR Impressions MUSE - 10/07/2024 10:16 AM SPECIAL INVESTIGATOR Normal sinus rhythm with sinus arrhythmia Possible [...] in preprocedural area. Given 10/07/2024 10:34 AM SPECIAL INVESTIGATOR 1,000 mg acetaminophen tablet 1,000 mg (TylenoL) 1,000 mg, oral, Once as needed, other, If patient has not received in the previous 6 hours, Starting on Irish 10/07/24 at 1418, For 1 dose, PACU (only), Oral unless RASS less than -1 or nausea/vomiting. Do not use if given in last 6 hours Given 10/07/2024 4:43 PM SPECIAL INVESTIGATOR 1,000 mg aprepitant capsule 40 mg (Emend) 40 mg, oral, Once, On Irish 10/07/24 at 1100, For 1 dose, Pre-Op, Restriction Criteria (Pharmacy will review and approve if criteria met): Patient does not have IV access and cannot receive fosaprepitant IV Given 10/07/2024 10:35 AM SPECIAL INVESTIGATOR 40 mg chlorhexidine 0.12 % mouthwash 15 [...] 1418, PACU (only) Given 10/07/2024 2:26 PM SPECIAL INVESTIGATOR 25 mcg Given 10/07/2024 2:22 PM SPECIAL INVESTIGATOR 25 mcg haloperidol lactate injection 1 mg [...] haloperidol then prochlorperazine) Given 10/07/2024 2:42 PM SPECIAL INVESTIGATOR 1 mg Lactated Ringer's 20 mL/hr, intravenous, Continuous, Starting on Irish 10/07/24 at 1415, PACU & Post-Op Continued from OR 10/07/2024 2:27 PM SPECIAL INVESTIGATOR 20 mL/hr 20 mL/hr metoprolol tablet 12.5 [...] dose, PACU (only) Given 10/07/2024 2:22 PM SPECIAL INVESTIGATOR 5 mg sodium chloride 0.9 % injection [...] Recently Administered Medications Times are shown in SPECIAL INVESTIGATOR. Scheduled Medication Order 10/05/2024 10/06/2024 10/07/2024 acetaminophen [...] hours PRN, nausea, vomiting, Starting on Irish 12/03/26 at 1552, For 48 hours, Reassess for nausea or vomiting after at least 10 minutes. If nausea or vomiting persists administer next ordered antiemetic medications (order for antiemetic medication administration ondansetron then haloperidol then prochlorperazine). ondansetron (PF) injection 4 mg (Zofran) 4 mg, intravenous, Every 6 hours PRN, nausea, vomiting, (If patient has not received in the previous 6 hours), Starting on Irish 12/03/26 at 1418, PACU (only), Administer first. If [...] hours PRN, nausea, vomiting, Starting on Irish 12/03/26 at 1552, For 48 hours, RASS must be -2 or higher to administer. Reassess for nausea/vomiting after at least 10 minutes. If nausea or vomiting persists administer next ordered antiemetic medications (order for antiemetic medication administration ondansetron then haloperidol then prochlorperazine) sodium chloride 0.9 % injection 10 mL 10 mL, intravenous, As needed, line care, Starting on Riish 12 at 0948, Pre-Op, Peripheral Intravenous Catheter and Rapid Infusion Catheter, prior to blood sampling, post blood transfusion or post blood sampling sodium chloride 0.9 % injection 3 mL 3 mL, intravenous, As needed, line care, Starting on Irish 12/24 at 0948, Pre-Op, Prior to and following [...] NPO) documented in this encounter Care Teams Photogrammetric Engineer Relationship Specialty Start Date End Date Elsewhere, Pcp PCP - General Internal Medicine 06/28/22 documented as of this encounter
--- OUTSIDE RECORDS SUMMARY | 2024-10-11 14:34 | XMS_ITS | Encounter Summary ---
Author Organization [facility] Address [address] [place] [address] Care Team Providers Care Medical Biller/Coder Name Role Phone Elsewhere, Pcp Primary Care Provider Unavailabl e Encounter Details Date Type Department Care Team (Late st Contact Info) Description 09/22/2024 Documentation Preoperative Evaluation Center in [place], [place] [address] [place] [phone] Valery Hinton, [facility], P.A.-C. [address] [place] [phone] Social History Tobacco Use Types Packs/Day Years Used Date Smoking Tobacco: Never Smokeless Tobacco: Never Alcohol Use Standard Drinks/Week Comments Yes 0 (1 standard drink = 0.6 oz pur e alcohol) < 4 per month [facility] Utilities Answer Date Recorded In the past 12 months has [employer], gas, oil, or water [employer] threatened to shut off services in your [...] How often do you attend chur or jew services? More than 4 times per year [...] and heating? Not hard at all 06/29/2022 [facility] [place] of Occupat ional Health - Occupational Stress [...] your living situation today? I have a [facility] place to live 02/01/2024 Education Answer Date Recorded What is the highest level of school you have completed or the highest degree you have received? Master's degree (e.g., MA, MS, Renetta, MEd, TRAINING PROGRAM DEVELOPER, TICO) 06/29/2022 Comments Unknown Sex and Gender Information Value Date Recorded Sex Assigned at Female 06/29/2022 11:48 AM CDT Legal Sex Female 10:10 PM ARC WELDING MACHINE OPERATOR Gender Identity Female 06/29/2022 11:48 AM CDT Sexual Orientation Straight 06/29/2022 11 :48 AM CDT documented as of this encounter Progress Notes * Valery Hinton MPAS, P.A.-C. - 09/22/2024 11:56 AM CST This is a [facility] pre-screening chart review to ascertain if a DARBY appointment is necessary. A comprehensive review of [facility] EMR was performed. We reviewed Care Everywhere and Documents Viewer or primary care or specialty care notes, laboratory testing, cardiac testing with in the last6 months and prior anesthesia encounters. Based on the EMR review, the patient is an acceptable candidate for the planned procedure and may proceed without additional preoperative evaluation or testing. The patient was not seen in D[facility]. Please call [phone] (DARBY Doc of the day) weekdays between 8 am and 4:30 pm with any questions. WELDING MACHINE OPERATOR documented in this encounter Plan of Treatment Upcoming Encounters Date Type Department Care Team (Late st Contact Info) Description 10/13/2024 1:00 PM ARC WELDING MACHINE OPERATOR Procedure visit Department of Urology in [place], [place] [address] [place] [phone] Mohini Larson M.D. [address] [place] [phone] 11/30/2024 7:30 AM ARC WELDING MACHINE OPERATOR Appointment Department of Radiology, [facility], in [place], [place] [address] [place] [phone] Mohini Larson M.D. [address] [place] [phone] 11/30/2024 3:45 PM ARC WELDING MACHINE OPERATOR Office Visit Department of Urology in [place], [place] [address] [place] [phone] Mohini Ang MPAS, P.A.-C. [address] [place] [phone] documented as of this encounter Visit Diagnoses Not on filedocumented in this encounter Care Teams Medical Biller/Coder Relationship Specialty Start Date End Date Elsewhere, Pcp PCP - General Internal Medicine 06/28/22 documented as of this encounter
--- OUTSIDE RECORDS SUMMARY | 2024-10-11 14:34 | XMS_ITS | Encounter Summary ---
Author Organization [facility] Address [address] [place] [id number] Care Team Providers Care Osteologist Name Role Phone Elsewhere, Pcp Primary Care Provider Unavailabl e Encounter Details Date Type Department Care Team (Latest Contact Info) Description 09/22/2024 7:36 AM WORK OVER RIG OPERATOR - 09/22/2024 11:59 PM [facility] Hospital Encounter Department of Laboratory Medicine and Pathology, [facility], in [place], [place] [address] [place] [phone] Efrain Valadez M.D. [address] [place] [address] Hydronephrosis Discharge Disposition: Home or Self Care Social History Tobacco Use Types Packs/Day Years Used Date Smoking Tobacco: Never Smokeless Tobacco: Never Alcohol Use Standard Drinks/Week Comments Yes 0 (1 standard drink = 0.6 oz pur e alcohol) < 4 per month [facility] Utilities Answer Date Recorded In the [...] How often do you attend chur or adventism services? More than 4 times per year 06/29/2022 Do you belong to any clubs o r organizations such as presybeterian groups, unions, fraternal or athletic groups, or [...] and heating? Not hard at all 06/29/2022 [facility] [facility] Occupat ional Health - Occupational Stress [...] your living situation today? I have a [facility] place to live 02/01/2024 Education Answer Date Recorded What is the highest level of school you have completed or the highest degree you have received? Master's degree (e.g., MA, MS, Renetta, MEd, DATA PROCESSING SUPERVISOR, [employer]ICO) 06/29/2022 Comments Unknown Sex and Gender Information Value Date Recorded Sex Assigned at Female 06/29/2022 11:48 AM CDT Legal Sex Female 10:10 PM WORK OVER RIG OPERATOR Gender Identity Female 06/29/2022 11:48 AM [...] stent removal 1 tablet 10/07/2024 3:49 PM WORK OVER RIG OPERATOR 10/12/2024 levothyroxine (SYNTHROID, LEVOTHROID) 100 mcg tablet Take 100 mcg by mouth daily. 04/30/2022 omeprazole (PriLOSEC) [address] capsule Take 20 mg by mouth daily before morning meal. oxyBUTYnin (Ditropan) 5 mg tablet Take 1 tablet (5 mg total) by mouth 3 (three) times a day as needed (bladder spams) for up to 14 days. 42 tablet 10/07/2024 3:49 PM WORK OVER RIG OPERATOR 10/07/2024 Paxlovid 300 mg (150 mg x [...] ureteral stent 30 capsule 10/07/2024 3:49 PM WORK OVER RIG OPERATOR 10/07/2024 tamsulosin (Flomax) 0.4 mg 24 hr capsule Take 1 capsule (0.4 mg total) by mouth daily. Take daily until stone passage 30 capsule 09/22/2024 4 documented as of this encounter Plan of Treatment Upcoming Encounters Date Type Department Care Team (Late st Contact Info) Description 10/13/2024 1:00 PM WORK OVER RIG OPERATOR Procedure visit Department of Urology in [place], [place] [address] [place] [phone] Mhoini Larson M.D. [address] [place] [phone] 11/30/2024 7:30 AM WORK OVER RIG OPERATOR Appointment Department of Radiology, [facility], in [place], [place] [address] [place] [phone] Mohini Larson M.D. [address] [place] [phone] 11/30/2024 3:45 PM WORK OVER RIG OPERATOR Office Visit Department of Urology in [place], [place] [address] [place] [phone] Mohini Ang MPAS, P.A.-C. [address] [place] [phone] documented as of this encounter Procedures Procedure Name Priority Date/Time Associated Diagnosis Comments DIPSTICK, U Routine 09/22/2024 8:20 AM WORK OVER RIG OPERATOR MICROSCOPIC AUTOMATED Routine 09/22/2024 8:20 AM WORK OVER RIG OPERATOR BACTERIAL CULTURE, AEROBIC + SUSC, URINE Routine 09/22/2024 8:20 AM WORK OVER RIG OPERATOR Hydronephrosis PH, U Routine 09/22/2024 8:20 AM WORK OVER RIG OPERATOR OSMOLALITY, U Routine 09/22/2024 8:20 AM WORK OVER RIG OPERATOR URINALYSIS WITH MICROSCOPIC Routine 09/22/2024 8:20 AM WORK OVER RIG OPERATOR Hydronephrosis documented in this encounter Results * Dipstick, Urine (09/22/2024 8:20 AM WORK OVER RIG OPERATOR) Hemoglobin, QL, U Negative Negative 09/22/2024 9:17 AM WORK OVER RIG OPERATOR DTL Leukocyte Esterase, U Negative Negative 09/22/2024 9:17 AM WORK OVER RIG OPERATOR DTL Nitrite, U Negative Negative 09/22/2024 9:17 AM WORK OVER RIG OPERATOR DTL Ketone, U Negative Negative mg/dL 09/22/2024 9:17 AM WORK OVER RIG OPERATOR DTL Glucose, U Negative Negative mg/dL 09/22/2024 9:17 AM WORK OVER RIG OPERATOR DTL Urine 09/22/2024 8:20 AM WORK OVER RIG OPERATOR 09/22/2024 8:40 AM WORK OVER RIG OPERATOR us Efrain Valadez M.D. LAB URINE ORDERABLES Final Re sult Performing Organization Address [facility]/ZIP Co de Phone Number [facility] [address] [place] [address] * (ABNORMAL) Osmolality, Urine (09/22/2024 8:20 AM WORK OVER RIG OPERATOR) Pathologist [facility] Osmolality, U 133(L) 150 - 1150 mOsm/kg 09/22/2024 9:50 AM WORK OVER RIG OPERATOR DTL Urine 09/22/2024 8:20 AM WORK OVER RIG OPERATOR 09/22/2024 8:40 AM WORK OVER RIG OPERATOR us Efrain Valadez M.D. LAB URINE ORDERABLES Final Re sult Performing Organization Address City/[facility]/ZIP Co de Phone Number [facility] [address] [place] [address] * pH, Urine (09/22/2024 8:20 AM WORK OVER RIG OPERATOR) pH, U 5.3 4.5 - 8.0 09/22/2024 9:5 0 AM WORK OVER RIG OPERATOR DTL Urine 09/22/2024 8:20 AM WORK OVER RIG OPERATOR 09/22/2024 8:40 AM WORK OVER RIG OPERATOR us Efrain Valadez M.D. LAB URINE ORDERABLES Final Re sult Performing Organization Address [facility] Co de Phone Number [facility] [address] [place] [address] * Microscopic Automated (09/22/2024 8:20 AM WORK OVER RIG OPERATOR) Microscopy Normal 09/22/2024 9:17 AM WORK OVER RIG OPERATOR DTL RBC <3 <3 /hpf 09/22/2024 9:17 AM WORK OVER RIG OPERATOR DTL WBC None Seen /hpf 09/22/2024 9:17 AM WORK OVER RIG OPERATOR DTL Comment: ----REFERENCE VALUE---- <4 (Males) <11 (Females) Urine 09/22/2024 8:20 AM WORK OVER RIG OPERATOR 09/22/2024 8:40 AM WORK OVER RIG OPERATOR us Efrain Valadez M.D. LAB URINE ORDERABLES Final Re sult Performing Organization Address [facility] Co de Phone Number [facility] [address] [place] [address] * (ABNORMAL) Bacterial Culture, Aerobic + Susceptibility, Urine (09/22/2024 8:20 AM WORK OVER RIG OPERATOR) Urine Culture With urogenital microbiota, susceptibilities not performed per laboratory criteria. (A) 09/24/2024 1:35 PM WORK OVER RIG OPERATOR DTL Urine Culture PSEUDOMONAS AERUGINOSA 10,000-100,000 cfu/mL (A) 09/24/2024 1:35 PM WORK OVER RIG OPERATOR DTL Comment: Gentamicin should not be used for P. aeruginosa. There are no gentamicin breakpoints for P. aeruginosa. Urine (Urine, Midstream) 09/22/2024 8:20 AM WORK OVER RIG OPERATOR 09/22/2024 9:15 AM WORK OVER RIG OPERATOR Comment:Specimen Source Site : Urine Narrative Organism [...] SUSCEPTIB ILITY, SPENCER (MCG/ML) 8 mcg/mL: Susceptible Efrain Valadez M.D. LAB MICROBIOLOGY - GENERAL OR DERABLES Final Result [address] [address], [facility] [place] [address] * Urinalysis, with Microscopic: Urine, Midstream (09/22/2024 8:20 AM WORK OVER RIG OPERATOR) Source Urine, Urine, Midstream 09/22/2024 8:40 AM WORK OVER RIG OPERATOR DTL Color, U Yellow 09/22/2024 8:40 AM WORK OVER RIG OPERATOR DTL Clarity, U Clear 09/22/2024 8:40 AM WORK OVER RIG OPERATOR DTL Protein, U <4 <26 mg/dL 09/22/2024 9:28 AM WORK OVER RIG OPERATOR DTL Protein/Osmol ality <0.30 <0.42 ratio 09/22/2024 9:50 AM WORK OVER RIG OPERATOR DTL Predicted 24 HR Protein, U <225 <229 mg/24 h 09/22/2024 9:50 AM WORK OVER RIG OPERATOR DTL Predicted Range <910 mg/24 h 09/22/2024 9:50 AM WORK OVER RIG OPERATOR DTL Urine (Urine, Midstream) 09/22/2024 8:20 AM WORK OVER RIG OPERATOR 09/22/2024 8:40 AM WORK OVER RIG OPERATOR us Efrain Valadez M.D. LAB URINE ORDERABLES Final Re sult [facility] [address] [place] [address], [facility] [address] [place] [address] documented in this encounter Visit Diagnoses Diagnosis Hydronephrosis documented in this encounter Care Teams Osteologist Relationship Specialty Start Date End Date Elsewhere, Pcp PCP - General Internal Medicine 06/28/22 documented as of this encounter
--- OUTSIDE RECORDS SUMMARY | 2024-10-11 14:34 | XMS_ITS | Referral Summary ---
Author Organization [facility] Address [address] [place] [address] Care Team Providers Care Party Plan Sales Unit Advisor Name Role Phone Elsewhere, Pcp Primary Care Provider Unavailabl e Source Comments Patient records contain information from all sites at [facility]. For routine questions regarding patient records, call [phone] during business hours, M-F 8:00 AM - 5:00 PM Central Time. Record requests for emergency care only can be directed to [phone] at any time.[facility] Encounters Date Type Department Care Team Description 10/08/2024 Abstract [place], [place] [address] [place] [address] Provider, Historical 10/07/2024 10:45 AM RESISTANCE WELDER Ancillary Procedure Department of General Surgery 10/07/2024 1:05 PM RESISTANCE WELDER Ancillary Procedure Department of Urology 10/07/2024 12:28 PM RESISTANCE WELDER Anesthesia Event [facility] [address] [place] [address] Mitchell Mcdowell M.D., Ph.D. Julien Russo M.D. 10/07/2024 12:32 PM RESISTANCE WELDER - 10/07/2024 2:33 PM RESISTANCE WELDER Surgery [facility] [address] [place] [address] Wymer, Efrain M, M.D. URETEROSCOPY, LEFT. 10/07/2024 9:28 AM RESISTANCE WELDER - 10/07/2024 5:55 PM RESISTANCE WELDER Hospital Encounter [facility] [address] [place] [address] Efrain Valadez M.D. [facility]; Nephrolithiasis Discharge Disposition: Home or Self Care 10/05/2024 Clinical Communication Department of Urology in [place], [place] [address] [place] [address] Mohini Larson M.D. 09/24/2024 Clinical Communication Department of Urology in [place], [place] [address] [place] [phone] Mohini Larson M.D. 09/22/2024 Documentation Preoperative Evaluation Center in [place], [place] [address] [place] [phone] Valery Hinton MPAS, P.A.-C. 09/22/2024 Clinical Communication Department of Urology in [place], [place] [address] [place] [address] Efrain Valadez M.D. Post op question 09/22/2024 7:36 AM RESISTANCE WELDER - 09/22/2024 11:59 PM RESISTANCE WELDER Hospital Encounter Department of Laboratory Medicine and Pathology, [place], [place] [address] [place] [address] Efrain Valadez M.D. Hydronephrosis Discharge Disposition: Home or Self Care 09/22/2024 7:36 AM RESISTANCE WELDER - 09/22/2024 11:59 PM RESISTANCE WELDER Hospital Encounter Department of Laboratory Medicine and Pathology, [place], [place] [address] [place] [address] Efrain Valadez M.D. Hydronephrosis Discharge Disposition: Home or Self Care 09/22/2024 10:00 AM RESISTANCE WELDER Comprehensive Visit Department of Urology in [place], [place] [address] [place] [address] Efrain Valadez M.D. Nephrolithiasis (Primary Dx) 09/21/2024 Clinical Communication Department of Urology in [place], [place] [address] [place] [address] Efrain Valadez M.D. from Last 3 Months Allergies No known active allergies Medications * This document contains information received from the source organization and may not represent a complete record from that organization. simvastatin (ZOCOR) 10 mg tablet Take 10 mg by mouth at bedtime. 04/30/20 22 Active levothyroxine (SYNTHROID, LEVOTHROID) 100 mcg tablet Take 100 mcg by mouth daily. 04/30/20 22 Active estradioL (VAGIFEM) 10 mcg vaginal tablet INSERT ONE TABLET VAGINALLY TWICE A WEEK 04/30/20 22 Active buPROPion XL (WELLBUTRIN XL) 300 mg [...] stent removal 1 tablet 4 3:49 PM RESISTANCE WELDER 10/12/20 24 024 Active tamsulosin (Flomax) 0.4 mg 24 hr capsule Take 1 capsule (0.4 mg total) by mouth daily. Take daily as needed for discomfort from the ureteral stent 30 capsule 4 3:49 PM RESISTANCE WELDER 10/07/20 24 025 Active oxyBUTYnin (Ditropan) 5 mg tablet Take 1 tablet (5 mg total) by mouth 3 (three) times a day as needed (bladder spams) for up to 14 days. 42 tablet 4 3:49 PM RESISTANCE WELDER 10/07/20 24 024 Active tamsulosin (Flomax) 0.4 [...] (12 YEARS AND OLDER) Fall Seasonal 02/14/2024 Social History Tobacco Use Types Packs/Day Years Used Date Smoking Tobacco: Never Smokeless Tobacco: Never Tobacco Cessation:Counseling Given: Not Answered Alcohol Use Standard Drinks/Week Comments Yes 0 (1 standard drink = 0.6 oz pur e alcohol) < 4 per month [facility] Utilities Answer Date Recorded In the past 12 months has [employer], [employer], oil, or water [employer] threatened to shut off services in your [...] often do you attend chur ch or rastafari services? More than 4 times per year 06/29/2022 Do you belong to any clubs o r organizations such as tenriism groups, unions, fraternal or athletic groups, or [...] and heating? Not hard at all 06/29/2022 [facility] [place] of Occupat ional Health - Occupational Stress [...] your living situation today? I have a [facility] place to live 02/01/2024 Education Answer Date Recorded What is the highest level of school you have completed or the highest degree you have received? Master's degree (e.g., MA, MS, Renetta, MEd, SOCIAL WORK SPECIALIST, TICO) 06/29/2022 Comments No Sex and Gender Information Value Date Recorded Sex Assigned at Female 06/29/2022 11:48 AM CDT Legal Sex Female 10:10 PM RESISTANCE WELDER Gender Identity Female 06/29/2022 11:48 AM CDT Sexual Orientation Straight 06/29/2022 11 :48 AM CDT Last Filed Vital Signs Vital Sign Reading Time Taken Comments Blood Pressure 151/95 10/07/2024 5:00 PM RESISTANCE WELDER Pulse 80 10/07/2024 5:00 PM RESISTANCE WELDER Temperature 36.4 C (97.5 F) 10/07/2024 2:59 PM RESISTANCE WELDER Respiratory Rate 28 10/07/2024 3:15 PM RESISTANCE WELDER Oxygen Saturation 96% 10/07/2024 5:00 PM RESISTANCE WELDER Inhaled Oxygen Concentration - - Weight 75.6 kg (166 lb 10.7 oz) 10/07/2024 9:56 AM RESISTANCE WELDER Height 167 cm (5' 5.75) 10/07/2024 9:56 AM RESISTANCE WELDER Body Mass Index 27.11 10/07/2024 9:56 AM RESISTANCE WELDER Plan of Treatment Upcoming Encounters Date Type Department Care Team (Late st Contact Info) Description 10/13/2024 1:00 PM RESISTANCE WELDER Procedure visit Department of Urology in [place], [place] [address] [place] [phone] Mohini Larson M.D. [address] [place] [phone] 11/30/2024 7:30 AM RESISTANCE WELDER Appointment Department of Radiology, [facility], in [place], [place] [address] [place] [phone] Mohini Larson M.D. [address] [place] [phone] 11/30/2024 3:45 PM RESISTANCE WELDER Office Visit Department of Urology in [place], [place] [address] [place] [phone] Mohini Ang, MPAS, P.A.-C. [address] [place] [phone] Medical Devices Implanted Type Area Transfer Coordinator Device Identifier Shelf Expiration Date Model / Serial / Lot Stnt Uret W/O Gw Tria 6fx24 - [id number] Implanted:Qt y: 1 on 10/07/2024 by Mohini Larson M.D. at [facility] Ureteral Stent Left: Ureter [employer] [id number] 07/26/2027 [id number] / / [id number] Procedures Procedure Name Priority Date/Time Associated Diagnosis Comments FL FLUORO LESS THAN 1 HOUR RAD - Routine (most inpatients and all outpatients) 10/07/2024 1:55 PM RESISTANCE WELDER GRAM'[facility] ST, U Routine 10/07/2024 1:21 PM RESISTANCE WELDER BACTERIAL CULTURE, AEROBIC + SUSC, URINE Routine 10/07/2024 1:21 PM RESISTANCE WELDER [facility] Nephrolithiasis UROLOGY IMAGE EXAM Routine 10/07/2024 1: 05 PM RESISTANCE WELDER LDA ANE ENDOTRACHEAL AIRWAY Routine 10/07/2024 12:40 PM RESISTANCE WELDER RETROGRADE PYELOGRAM 10/07/2024 12:13 PM RESISTANCE WELDER [facility] Nephrolithiasis CYSTOURETHROSCOPY WITH PLACEMENT URETERAL STENT 10/07/2024 12:13 PM RESISTANCE WELDER [facility] Nephrolithiasis URETEROSCOPY WITH LASER LITHOTRIPSY 10/07/2024 12:13 PM RESISTANCE WELDER [facility] Nephrolithiasis SURGERY IMAGE EXAM Routine 10/07/2024 10:45 AM RESISTANCE WELDER ECG STAT 10/07/2024 10:03 AM RESISTANCE WELDER OUTSIDE CT BODY Routine 10/05/2024 9:15 AM RESISTANCE WELDER DIPSTICK, U Routine 09/22/2024 8:20 AM RESISTANCE WELDER OSMOLALITY, U Routine 09/22/2024 8:20 AM RESISTANCE WELDER PH, U Routine 09/22/2024 8:20 AM RESISTANCE WELDER MICROSCOPIC AUTOMATED Routine 09/22/2024 8:20 AM RESISTANCE WELDER URINALYSIS WITH MICROSCOPIC Routine 09/22/2024 8:20 AM RESISTANCE WELDER Hydronephrosis BACTERIAL CULTURE, AEROBIC + SUSC, URINE Routine 09/22/2024 8:20 AM RESISTANCE WELDER Hydronephrosis BASIC METABOLIC PANEL, S/P Routine 09/22/2024 8:10 AM RESISTANCE WELDER Hydronephrosis OUTSIDE CT BODY Routine 09/20/2024 12:10 PM RESISTANCE WELDER from Last 3 Months Results * FL Fluoro Less Than 1 Hour (10/07/2024 1:55 PM RESISTANCE WELDER) Narrative [id number] - 10/07/2024 1:55 PM RESISTANCE WELDER This exam does not require a radiologist review or interpretation. Please refer to the patient's medical record on this date for clinical details. us Efrain Valadez M.D. IMG FLUOROSCOPY PROCEDURES Fi nal Result Performing Organization Address [facility] Co de Phone Number [id number] NA * Bacterial Culture, Aerobic + Susceptibility, Urine (10/07/2024 1:21 PM RESISTANCE WELDER) Only the most recent of2 resultswithin the time period is included. Urine Culture No growth after 1 day of incubation. 10/08/2024 10:39 AM RESISTANCE WELDER DTL Urine (Urine, Ureter Left) 10/07/2024 1:21 PM RESISTANCE WELDER us Efrain Valadez M.D. LAB MICROBIOLOGY - GENERAL OR DERABLES Final Result Performing Organization Address [facility] Co de Phone Number [facility] [address] [place] [address], [facility] [address] [place] [address] * Gram Stain, Urine (10/07/2024 1:21 PM RESISTANCE WELDER) Source Urine, Urine, Ureter Left 10/07/2024 2:03 PM RESISTANCE WELDER DTL Gram Stain, U Negative Negative 10/07/2024 3:07 PM RESISTANCE WELDER DTL Urine 10/07/2024 1:21 PM RESISTANCE WELDER 10/07/2024 2:03 PM RESISTANCE WELDER us Efrain Valadez M.D. LAB URINE ORDERABLES Final Re sult Performing Organization Address [facility] Co de Phone Number [facility] [address] [place] [address], [facility] [address] [place] [address] * FL FLUORO LESS THAN 1 HOUR-Urology Image Exam (10/07/2024 1:05 PM RESISTANCE WELDER) 10/07/2024 1:05 PM RESISTANCE WELDER Narrative SONAM - 10/07/2024 1:37 PM RESISTANCE WELDER This order has been created and auto-finalized to support the import of images acquired without order. The clinical documentation to support these images can be found on the encounter that produced images. us Provider Not In System IMG NON RAD IMAGING PROCE DURES Final Result IIMS NA * LDA ANE ENDOTRACHEAL AIRWAY (10/07/2024 12:40 PM RESISTANCE WELDER) Narrative Clive Bright M.S. - 10/07/2024 12:40 PM RESISTANCE WELDER Clive Bright M.S. 10/07/2024 12:53 PM Airway [...] * CYSTO-Surgery Image Exam (10/07/2024 10:45 AM RESISTANCE WELDER) 10/07/2024 10:4 4 AM RESISTANCE WELDER Narrative IIMS - 10/07/2024 1:41 PM RESISTANCE WELDER This order has been created and auto-finalized to support the import of images acquired without order. The clinical documentation to support these images can be found on the encounter that produced images. us Provider Not In System IMG NON RAD IMAGING PROCE DURES Final Result Performing Organization Address [facility] Co de Phone Number IIMS NA * ECG 12 Lead (10/07/2024 10:03 AM RESISTANCE WELDER) Ventricular Rate ECG/Min 88 BPM MUSE AZ Interval 156 ms MUSE QRSD Interval 76 ms MUSE QT Interval 358 ms MUSE QTC Interval 433 ms MUSE P [place] 58 degrees MUSE R [place] 36 degrees MUSE T Wave [place] 63 degrees MUSE 10/07/2024 10:0 3 AM RESISTANCE WELDER 10/07/2024 10:16 AM RESISTANCE WELDER Impressions MUSE - 10/07/2024 10:16 AM RESISTANCE WELDER Normal sinus rhythm with sinus arrhythmia Possible Lateral infarct No previous ECGs available Reviewed by DAREK Ashby Narrative Procedure Note Federico Deutsch M.D., Ph.D. - 10/07/2024 IMPRESSION: Normal sinus rhythm with sinus arrhythmia Possible Lateral infarct No previous ECGs available Reviewed by DAREK Ashby Efrain Valadez M.D. ECG ORDERABLES Final Result Performing Organization Address [facility] Co de Phone Number MUSE NA * CT ABDOMEN PELVIS WO CON-Outside CT Body (10/05/2024 9:15 AM RESISTANCE WELDER) Only the most recent of2 resultswithin the time period is included. 10/05/2024 9:11 AM RESISTANCE WELDER Narrative IIMS - 10/05/2024 9:37 AM RESISTANCE WELDER This order has been created and auto-finalized [...] PROCEDURES Final R esult Performing Organization Address [facility] Co de Phone Number IIMS NA * Dipstick, Urine (09/22/2024 8:20 AM RESISTANCE WELDER) Hemoglobin, QL, U Negative Negative 09/22/2024 9:17 AM RESISTANCE WELDER DTL Leukocyte Esterase, U Negative Negative 09/22/2024 9:17 AM RESISTANCE WELDER DTL Nitrite, U Negative Negative 09/22/2024 9:17 AM RESISTANCE WELDER DTL Ketone, U Negative Negative mg/dL 09/22/2024 9:17 AM RESISTANCE WELDER DTL Glucose, U Negative Negative mg/dL 09/22/2024 9:17 AM RESISTANCE WELDER DTL Urine 09/22/2024 8:20 AM RESISTANCE WELDER 09/22/2024 8:40 AM RESISTANCE WELDER us Efrain Valadez M.D. LAB URINE ORDERABLES Final Re sult Performing Organization Address [facility] de Phone Number [facility] [address] [place] [address], [facility] DTL [facility] [address] [place] [address] * Microscopic Automated (09/22/2024 8:20 AM RESISTANCE WELDER) Microscopy Normal 09/22/2024 9:17 AM RESISTANCE WELDER DTL RBC <3 <3 /hpf 09/22/2024 9:17 AM RESISTANCE WELDER DTL WBC None Seen /hpf 09/22/2024 9:17 AM RESISTANCE WELDER DTL Comment: ----REFERENCE VALUE---- <4 (Males) <11 (Females) Urine 09/22/2024 8:20 AM RESISTANCE WELDER 09/22/2024 8:40 AM RESISTANCE WELDER us Efrain Valadez M.D. LAB URINE ORDERABLES Final Re sult Performing Organization Address [facility] Co de Phone Number [facility] [address] [place], [place] [address] [address] [place] [address] * pH, Urine (09/22/2024 8:20 AM RESISTANCE WELDER) pH, U 5.3 4.5 - 8.0 09/22/2024 9:5 0 AM RESISTANCE WELDER DTL Urine 09/22/2024 8:20 AM RESISTANCE WELDER 09/22/2024 8:40 AM RESISTANCE WELDER us Efrain Valadez M.D. LAB URINE ORDERABLES Final Re sult Performing Organization Address [facility] Co de Phone Number [facility] [address] [place], [place] [address] [address] [place] [address] * (ABNORMAL) Osmolality, Urine (09/22/2024 8:20 AM RESISTANCE WELDER) Pathologist [facility] Osmolality, U 133(L) 150 - 1150 mOsm/kg 09/22/2024 9:50 AM RESISTANCE WELDER DTL Urine 09/22/2024 8:20 AM RESISTANCE WELDER 09/22/2024 8:40 AM RESISTANCE WELDER us Efrain Valadez M.D. LAB URINE ORDERABLES Final Re sult Performing Organization Address [facility] Co de Phone Number [facility] [address] [place], [place] [address] [place] [address] [address] [place] [address] * Urinalysis, with Microscopic: Urine, Midstream (09/22/2024 8:20 AM RESISTANCE WELDER) Source Urine, Urine, Midstream 09/22/2024 8:40 AM RESISTANCE WELDER DTL Color, U Yellow 09/22/2024 8:40 AM RESISTANCE WELDER DTL Clarity, U Clear 09/22/2024 8:40 AM RESISTANCE WELDER DTL Protein, U <4 <26 mg/dL 09/22/2024 9:28 AM RESISTANCE WELDER DTL Protein/Osmol ality <0.30 <0.42 ratio 09/22/2024 9:50 AM RESISTANCE WELDER DTL Predicted 24 HR Protein, U <225 <229 mg/24 h 09/22/2024 9:50 AM RESISTANCE WELDER DTL Predicted Range <910 mg/24 h 09/22/2024 9:50 AM RESISTANCE WELDER DTL Urine (Urine, Midstream) 09/22/2024 8:20 AM RESISTANCE WELDER 09/22/2024 8:40 AM RESISTANCE WELDER us Efrain Valadez M.D. LAB URINE ORDERABLES Final Re sult [facility] [address] [place] [address], [facility] [address] [place] [address] * (ABNORMAL) Basic Metabolic Panel (09/22/2024 8:10 AM RESISTANCE WELDER) Pathologist [facility] Potassium, S 4.3 3.6 - 5.2 mmol/L 09/22/2024 9:14 AM RESISTANCE WELDER DTL Sodium, S 142 135 - 145 mmol/L 09/22/2024 9:14 AM RESISTANCE WELDER DTL Chloride, S 108(H) 98 - 107 mmol/L 09/22/2024 9:14 AM RESISTANCE WELDER DTL Bicarbonate, S 23 22 - 29 mmol/L 09/22/2024 9:14 AM RESISTANCE WELDER DTL Anion Gap 11 7 - 15 09/22/2024 9:14 AM RESISTANCE WELDER DTL BUN (Blood Urea Nitrogen), S 16 6 - 21 mg/dL 09/22/2024 9:14 AM RESISTANCE WELDER DTL Creatinine 0.76 0.59 - 1.04 mg/dL 09/22/2024 9:14 AM RESISTANCE WELDER DTL Estimated GFR (eGFR) 85 >=60 mL/min/BSA 09/22/2024 9:14 AM RESISTANCE WELDER DTL Comment: Estimated GFR calculated using the 2020 CKD_EPI creatinine equation. Calcium, Total, S 9.2 8.8 - 10.2 mg/dL 09/22/2024 9:14 AM RESISTANCE WELDER DTL Glucose, S 94 70 - 140 mg/dL 09/22/2024 9:14 AM RESISTANCE WELDER DTL Blood (Blood, Venous) 09/22/2024 8:10 AM RESISTANCE WELDER 09/22/2024 8:50 AM RESISTANCE WELDER Efrain Valadez M.D. LAB BLOOD ADD-ON Final Result [facility] [address] [place] [address], [place] DTL [facility] [address] [place] [address] from Last 3 Months Insurance [facility] MEDIC[facility] Advance Directives For more information, please contact: [phone] Documents on File Type Date Recorded Patient Marketing Financial Analyst Expl anation Advance Directives 10/08/2024 2:36 PM Advance Directives 10/07/2024 9:58 AM Jayson Weir HCPOA/ADVOCATE/AGENT/R EPRESENTATIVE/SURROGAT E Healthcare Agents on File Name Relationship Healthcare Agent Relationshi p Communication Jayson Weir Spouse Health Care Agent Kasey Weir Daughter First Alternate Health Care Agent Megan Weir Daughter Second Alternate Health Care Agent Care Teams Party Plan Sales Unit Advisor Relationship Specialty Start Date End Date Elsewhere, Pcp PCP - General Internal Medicine 06/28/22
--- OUTSIDE RECORDS SUMMARY | 2024-10-11 14:34 | XMS_ITS | Encounter Summary ---
Author Organization [facility] Address [address] [place] [address] Care Team Providers Care Operating Room Assistant Name Role Phone Elsewhere, Pcp Primary Care Provider Unavailabl e Reason for Visit * Reason Onset Date Comments Post op question 09/22/2024 Encounter Details Date Type Department Care Team (Latest Contact Info) Description 09/22/2024 Clinical Communication Department of Urology in [place], [place] [address] [place] [address] Efrain Valadez M.D. [address] [place] [address] Post op question Social History Tobacco Use Types Packs/Day Years [...] How often do you attend chur or alevism services? More than 4 times per year 06/29/2022 Do you belong to any clubs o r organizations such as oriental orthodox groups, unions, fraternal or athletic groups, or [...] and heating? Not hard at all 06/29/2022 [facility] [place] of Occupat ional Health - Occupational Stress [...] your living situation today? I have a [facility] place to live 02/01/2024 Education Answer Date Recorded What is the highest level of school you have completed or the highest degree you have received? Master's degree (e.g., MA, MS, Renetta, MEd, PIPE TESTER, TICO) 06/29/2022 Comments Unknown Sex and Gender Information Value Date Recorded Sex Assigned at Female 06/29/2022 11:48 AM CDT Legal Sex Female 10:10 PM CASE FOLDER Gender Identity Female 06/29/2022 11:48 AM CDT Sexual Orientation Straight 06/29/2022 11 :48 AM CDT documented as of this encounter Plan of Treatment Upcoming Encounters Date Type Department Care Team (Late st Contact Info) Description 10/13/2024 1:00 PM CASE FOLDER Procedure visit Department of Urology in [place], [place] [address] [place] [address] Mohini Larson M.D. [address] [place] [address] 11/30/2024 7:30 AM CASE FOLDER Appointment Department of Radiology, [facility], in [place], [place] [address] [place] [address] Mohini Larson M.D. [address] [place] [phone] 11/30/2024 3:45 PM CASE FOLDER Office Visit Department of Urology in [place], [place] [address] [place] [address] Mohini Ang, MPAS, P.A.-C. [address] [place] [phone] documented as of this encounter Visit Diagnoses Not on filedocumented in this encounter Care Teams Operating Room Assistant Relationship Specialty Start Date End Date Elsewhere, Pcp PCP - General Internal Medicine 06/28/22 documented as of this encounter
--- OUTSIDE RECORDS SUMMARY | 2024-10-11 14:34 | XMS_ITS | Encounter Summary ---
Author Organization [facility] Address [address] [place] [address] Care Team Providers Care Filtration Plant Operator Name Role Phone Elsewhere, Pcp Primary Care Provider Unavailabl e Encounter Details Date Type Department Care Team (Late st Contact Info) Description 10/07/2024 1:05 PM SPACER TYPE BAR AND SEGMENT Ancillary Procedure Department of Urology Social History Tobacco Use Types Packs/Day Years Used Date Smoking Tobacco: Never Smokeless Tobacco: Never Alcohol Use Standard Drinks/Week Comments Yes 0 (1 standard drink = 0.6 oz pur e alcohol) < 4 per month [facility] Utilities Answer Date Recorded In the past 12 months has e electric, gas, oil, or water [employer] threatened to shut off services in your [...] any clubs o r organizations such as jewish groups, unions, fraternal or athletic groups, or [...] and heating? Not hard at all 06/29/2022 [facility] of Occupat ional Health - Occupational Stress [...] your living situation today? I have a [facility] place to live 02/01/2024 Education Answer Date Recorded What is the highest level of school you have completed or the highest degree you have received? Master's degree (e.g., MA, MS, Renetta, MEd, JIG GRINDER SET UP OPERATOR, TICO) 06/29/2022 Comments No Sex and Gender Information Value Date Recorded Sex Assigned at Female 06/29/2022 11:48 AM CDT Legal Sex Female 10:10 PM SPACER TYPE BAR AND SEGMENT Gender Identity Female 06/29/2022 11:48 AM CDT Sexual Orientation Straight 06/29/2022 11 :48 AM CDT documented as of this encounter Plan of Treatment Upcoming Encounters Date Type Department Care Team (Late st Contact Info) Description 10/13/2024 1:00 PM SPACER TYPE BAR AND SEGMENT Procedure visit Department of Urology in [place], [place] [address] [place] [address] Mohini Larson M.D. 200 [place] [address] 11/30/2024 7:30 AM SPACER TYPE BAR AND SEGMENT Appointment Department of Radiology, [facility], in [place], [place] [address] [place] [address] Mohini Larson M.D. [address] [place] [address] 11/30/2024 3:45 PM SPACER TYPE BAR AND SEGMENT Office Visit Department of Urology in [place], [place] [address] [place] [phone] Mohini Ang MPAS, P.A.-C. [address] [place] [phone] documented as of this encounter Procedures Procedure Name Priority Date/Time Associated Diagnosis Comments UROLOGY IMAGE EXAM Routine 10/07/2024 1: 05 PM SPACER TYPE BAR AND SEGMENT documented in this encounter Results * FL FLUORO LESS THAN 1 HOUR-Urology Image Exam (10/07/2024 1:05 PM SPACER TYPE BAR AND SEGMENT) 10/07/2024 1:05 PM SPACER TYPE BAR AND SEGMENT Narrative IIMS - 10/07/2024 1:37 PM SPACER TYPE BAR AND SEGMENT This order has been created and auto-finalized to support the import of images acquired without order. The clinical documentation to support these images can be found on the encounter that produced images. us Provider Not In System IMG NON RAD IMAGING PROCE DURES Final Result [facility] NA documented in this encounter Visit Diagnoses Not on filedocumented in this encounter Care Teams Filtration Plant Operator Relationship Specialty Start Date End Date Elsewhere, Pcp PCP - General Internal Medicine 06/28/22 documented as of this encounter
--- OUTSIDE RECORDS SUMMARY | 2024-10-11 14:34 | XMS_ITS | Encounter Summary ---
Author Organization [facility] Address [address] [place] [address] Care Team Providers Care Track Grinder Name Role Phone Elsewhere, Pcp Primary Care Provider Unavailabl e Encounter Details Date Type Department Care Team (Late st Contact Info) Description 10/08/2024 Abstract [place], [place] [address] [place] [phone] Provider, Historical Social History Tobacco Use Types Packs/Day Years Used Date Smoking Tobacco: Never Smokeless Tobacco: Never Alcohol Use Standard Drinks/Week Comments Yes 0 (1 standard drink = 0.6 oz pur e alcohol) < 4 per month [facility] Utilities Answer Date Recorded In the past 12 months has [facility] [employer], gas, oil, or water [employer] threatened to shut off services in your [...] How often do you attend chur or scientologist services? More than 4 times per year 06/29/2022 Do you belong to any clubs o r organizations such as methodist groups, unions, fraternal or athletic groups, or [...] and heating? Not hard at all 06/29/2022 [facility] of Occupat ional Health - Occupational [...] your living situation today? I have a [facility] place to live 02/01/2024 Education Answer Date Recorded What is the highest level of school you have completed or the highest degree you have received? Master's degree (e.g., MA, MS, Renetta, MEd, WATER TREATMENT SPECIALIST, TICO) 06/29/2022 Comments No Sex and Gender Information Value Date Recorded Sex Assigned at Female 06/29/2022 11:48 AM CDT Legal Sex Female 10:10 PM STRUCTURAL ARCHITECT Gender Identity Female 06/29/2022 11:48 AM CDT Sexual Orientation Straight 06/29/2022 11 :48 AM CDT documented as of this encounter Plan of Treatment Upcoming Encounters Date Type Department Care Team (Late st Contact Info) Description 10/13/2024 1:00 PM STRUCTURAL ARCHITECT Procedure visit Department of Urology in [place], [place] [address] [place] [address] Mohini Larson M.D. [address] [place] [phone] 11/30/2024 7:30 AM STRUCTURAL ARCHITECT Appointment Department of Radiology, [facility], in [place], [place] [address] [place] [address] Mohini Larson M.D. [address] [place] [address] 11/30/2024 3:45 PM STRUCTURAL ARCHITECT Office Visit Department of Urology in [place], [place] [address] [place] [phone] Mohini Ang, ISABELLS, P.A.-C. [address] [place] [phone] documented as of this encounter Visit Diagnoses Not on filedocumented in this encounter Care Teams Track Grinder Relationship Specialty Start Date End Date Elsewhere, Pcp PCP - General Internal Medicine 06/28/22 documented as of this encounter
--- OUTSIDE RECORDS SUMMARY | 2024-10-11 14:34 | XMS_ITS | Encounter Summary ---
Author Organization [facility] Address [address] [place] [address] Care Team Providers Care Senior Field Service Engineer Name Role Phone Elsewhere, Pcp Primary Care Provider Unavailabl e Encounter Details Date Type Department Care Team (Late st Contact Info) Description 10/05/2024 Clinical Communication Department of Urology in [place], [place] [address] [place] [address] Mohini Larson M.D. [address] [place] [phone] Social History Tobacco Use Types Packs/Day Years Used Date Smoking Tobacco: Never Smokeless Tobacco: Never Alcohol Use Standard Drinks/Week Comments Yes 0 (1 standard drink = 0.6 oz pur e alcohol) < 4 per month [facility] Utilities Answer Date Recorded In the past 12 months has e [employer], gas, oil, or water [employer] threatened to shut off services in your [...] often do you attend chur ch or hinduism services? More than 4 times per year 06/29/2022 Do you belong to any clubs o r organizations such as amish groups, unions, fraAnyMeeting or athletic groups, or school groups? Yes [...] and heating? Not hard at all 06/29/2022 [facility] of Occupat ional Health - Occupational Stress [...] Master's degree (e.g., MA, MS, Renetta, MEd, TIE TAPE MACHINE OPERATOR, TICO) 06/29/2022 Comments Unknown Sex and Gender Information Value Date Recorded Sex Assigned at Female 06/29/2022 11:48 AM CDT Legal Sex Female 10:10 PM SUPERVISOR SHUTTLE FITTING Gender Identity Female 06/29/2022 11:48 AM CDT Sexual Orientation Straight 06/29/2022 11 :48 AM CDT documented as of this encounter Miscellaneous Notes * Telephone Encounter - Mohini Larson M.D. - 10/05/2024 3:34 PM CST Urology Telephone Encounter Patient is scheduled for left ureteroscopy with laser lithotripsy on 10/07/[address] Valadez. She underwent noncontrast CT scan today which showed passage of her previously seen 3 mm left UVJ stone. However, she does still have a 4 mm nonobstructing stone in the left upper pole. I called the patient to discuss whether she wanted to proceed to the operating room as scheduled for treatment of her nonobstructing stone or try to avoid surgery at this time. Of note, she is planning to travel to [place] on 10/16/2024. We discussed with the stent would likely need to stay in for 3-7 days and that we could possibly leave this on a string. If not left on a string she knows that she would need to come to the office for a cystoscopy for stent removal. We also discussed the rare possibility that this would need to be a staged procedure if we could not safely fit our instruments into the kidney. This would result in placing a ureteral stent without treating the kidney stone and returning to the OR at a later date for definitive stone treatment. Patient states that she would like to avoid any risk of passing a kidney stone while on her vacation and that she could potentially delay her vacation if needed. We will keep her surgery date as scheduled on . She does they state that she has a mild cold symptoms right now. We discussed that if her symptoms remain mild and are improving then it should be fine to proceed to the operating room. However, if she develops fevers, shortness of breath or difficulty breathing, or were to test positive for the flu/COVID then this may need to be delayed. All questions were answered and patient was very appreciative of the call. Mohini Larson MD Office of Dr. Valadez RVISOR SHUTTLE FITTING documented in this encounter Plan of Treatment Upcoming Encounters Date Type Department Care Team (Late st Contact Info) Description 10/13/2024 1:00 PM SUPERVISOR SHUTTLE FITTING Procedure visit Department of Urology in [place], [place] [address] [place] [address] Mohini Larson M.D. [address] [place] [phone] 11/30/2024 7:30 AM SUPERVISOR SHUTTLE FITTING Appointment Department of Radiology, [facility], in [place], [place] [address] [place] [address] Mohini Larson M.D. [address] [place] [phone] 11/30/2024 3:45 PM SUPERVISOR SHUTTLE FITTING Office Visit Department of Urology in [place], [place] [address] [place] [phone] Mohini Ang MPAS, P.A.-C. [address] [place] [phone] documented as of this encounter Visit Diagnoses Not on filedocumented in this encounter Care Teams Senior Field Service Engineer Relationship Specialty Start Date End Date Elsewhere, Pcp PCP - General Internal Medicine 06/28/22 documented as of this encounter
--- OUTSIDE RECORDS SUMMARY | 2024-10-11 14:35 | XMS_ITS | Clinical Summary ---
Author Organization [facility] Address [place], [place] [address] Care Team Providers Care E Commerce Merchandising Coordinator Name Role Phone Rehana Mariano MD Primary Care Provider [phone] Allergies No known active allergies Medications PROTONIX 40 MG TAB take 1 tablet [...] = 0.6 oz pur e alcohol) occasoinal Comments No Sex and Gender Information Value Date Recorded Sex Assigned at Not on file Legal Sex Female 6:04 AM BRIDGE CARPENTER Gender Identity Not on file Sexual Orientation [...] age 76 03/20/2022 03/20/2012, COVID-19 vaccine series ( season) 2024 07/09/2022, 03/03/2022, 08/23/2021, Additional history exists Influenza for age 65+ 07/04/2024 RSV vaccine for adults or (1 - 1-dose 75+ series) 2031 Procedures Procedure Name Priority Date/Time Associated Diagnosis [...] scanned document for results of this study. us Georgia Hendricks MD MAMMO Final Result from Last 3 Months or Most Recently Relevant to Health Maintenance Insurance BLUE CROSS HOLY CROSS BLUE MR PB ONLY Care Teams E Commerce Merchandising Coordinator Relationship Specialty Start Date End Date Rehana Mariano MD [address] [place] [address] PCP - General Internal Medicine 03/12/16
--- OUTSIDE RECORDS SUMMARY | 2024-10-11 14:35 | XMS_ITS | Encounter Summary ---
Author Organization [facility] Address [address] [place] [address] Care Team Providers Care Heavy Equipment Engine Mechanic Name Role Phone Elsewhere, Pcp Primary Care Provider Unavailabl e Reason for Referral * MRI/CAT/PET Scan (Routine) - Authorized Specialty Diagnoses / Procedures Referred By Contac t Referred To Contact Radiology Diagnoses Nephrolithiasis Procedures CT Abdomen Pelvis without IV Contrast Mohini Larson M.D. [address] [place] [address] Phone: tel: fax: [facility] Referral ID Status Reason Start Date Expiration Date V isits Requested Visits Authorized [id number] Authorized 09/22/2024 09/22/2025 1 1 VISION NEWS REPORTER Reason for Visit * Appointment Request (Routine) - Closed Specialty Diagnoses / Procedures Referred By Contimelda t Referred To Contact Urology Diagnoses Hydronephrosis Referral ID Status Reason Start Date Expiration Date Visits Re quested Visits Authorized [id number] Closed 09/21/2024 09/21/2025 1 1 Encounter Details Date Type Department Care Team (Latest Contact Info) Description 09/22/2024 10:00 AM TELEVISION NEWS REPORTER Comprehensive Visit Department of Urology in [place], [place] [address] [place] [phone] Efrain Valadez M.D. [address] [place] [address] Nephrolithiasis (Primary Dx) Social History Tobacco Use Types Packs/Day Years Used Date Smoking Tobacco: Never Smokeless Tobacco: Never Alcohol Use Standard Drinks/Week Comments Yes 0 (1 standard drink = 0.6 oz pur e alcohol) < 4 per month [facility] Utilities Answer Date Recorded In the past 12 months has e [employer], gas, oil, or water [employer] threatened to shut off services in your [...] How often do you attend chur or anglican services? More than 4 times per year 06/29/2022 Do you belong to any clubs o r organizations such as mu-ism groups, unions, fraternal or athletic groups, or [...] and heating? Not hard at all 06/29/2022 [facility] of Occupat ional [facility] [...] money to buy more. Never true 02/01/20 Within the past 12 months, t he [...] your living situation today? I have a [facility] place to live 02/01/2024 Education Answer Date Recorded What is the highest level of school you have completed or the highest degree you have received? Master's degree (e.g., MA, MS, Renetta, MEd, RAIL CAR REPAIRER, TICO) 06/29/2022 Comments Unknown Sex and Gender Information Value Date Recorded Sex Assigned at Female 06/29/2022 11:48 AM CDT Legal Sex Female 10:10 PM TELEVISION NEWS REPORTER Gender Identity Female 06/29/2022 11:48 AM CDT Sexual Orientation Straight 06/29/2022 11 :48 AM CDT documented as of this encounter Progress Notes * Bette Zaidi R.N. - 09/22/2024 10:00 AM CST CHIEF COMPLAINT Nephrolithiasis IMPRESSION/PLAN Leeann Weir is a very pleasant 69 y.o. here for a visit with Dr. Valadez. Patient is in need of a Left URS with stent placement at [facility], patient has selected 10/07 for their surgical date. Patient will be outpatient. Educated will need a bobcat driver/labor. Anesthesia: Patient has been cleared by Anesthesia [...] and Dr. Valadez's note for additional details. VISION NEWS REPORTER documented in this encounter Consult Notes * [...] are planning to take a trip to [place] leaving 10/16/2024. PMH: Depression, HLD, hypothyroidism, nephrolithiasis, GERD, mitral valve prolapse No Known Allergies Past Medical History: Diagnosis Date Depressive Disorder 1990 Hypothyroidism 1984 Osteopenia 2018 Past Surgical History: Procedure Laterality Date BREAST SURGERY 2002 Benign. At [facility]. DILATATION AND CURETTAGE 1981 Post miscarriage [...] that she is planned to travel to [place] on 10/16/2024 we will tentatively schedule her [...] Efrain Valadez M.D. at 09/22/2024 11:29 AM TELEVISION NEWS REPORTER VISION NEWS REPORTER VISION NEWS REPORTER Associated attestation - Efrain Valadez M.D. - 09/22/2024 11:29 AM TELEVISION NEWS REPORTER I met with Ms. Weir and her [...] st Contact Info) Description 10/13/2024 1:00 PM TELEVISION NEWS REPORTER Procedure visit Department of Urology in [place], [place] [address] [place] [address] Mohini Larson M.D. [address] [place] [address] 11/30/2024 7:30 AM TELEVISION NEWS REPORTER Appointment Department of Radiology, [facility], in [place], [place] [address] [place] [address] Mohini Larson M.D. [address] [place] [phone] 11/30/2024 3:45 PM TELEVISION NEWS REPORTER Office Visit Department of Urology in [place], [place] [address] [place] [address] Mohini Ang, MPAS, P.A.-C. [address] [place] [phone] Scheduled Orders Name Type Priority Associated Diagnoses Orde r Schedule CT Abdomen Pelvis without IV Contrast Imaging RAD - Routine (most inpatients and all outpatients) Nephrolithiasis Expected: 10/05/2024, Expires: 12/23/2025 documented as of this encounter Visit Diagnoses Diagnosis Nephrolithiasis- Primary documented in this encounter Care Teams Heavy Equipment Engine Mechanic Relationship Specialty Start Date End Date Elsewhere, Pcp PCP - General Internal Medicine 06/28/22 documented as of this encounter
--- OUTSIDE RECORDS SUMMARY | 2024-10-11 14:35 | XMS_ITS | Encounter Summary ---
Author Organization [facility] Address [address] [place] [address] Care Team Providers Care Florist Designer Name Role Phone Elsewhere, Pcp Primary Care Provider Unavailabl e Encounter Details Date Type Department Care Team (Late st Contact Info) Description 09/21/2024 Clinical Communication Department of Urology in [place], [place] [address] [place] [address] Efrain Valadez M.D. [address] [place] [phone] Social History Tobacco Use Types Packs/Day Years Used Date Smoking Tobacco: Never Smokeless Tobacco: Never Alcohol Use Standard Drinks/Week Comments Yes 0 (1 standard drink = 0.6 oz pur e alcohol) < 4 per month [facility] Utilities Answer Date Recorded In the past 12 months has [employer], gas, oil, or water [employer] threatened to shut off services in your [...] often do you attend chur ch or anabaptism services? More than 4 times per year 06/29/2022 Do you belong to any clubs o r organizations such as scientology groups, unions, fraternal or athletic groups, or [...] and heating? Not hard at all 06/29/2022 [facility] of Occupat ional Health - Occupational Stress [...] situation today? I have a [facility] place to live 02/01/2024 Education Answer Date Recorded What is the highest level of school you have completed or the highest degree you have received? Master's degree (e.g., MA, MS, Renetta, MEd, UPHOLSTERY TECH, TICO) 06/29/2022 Comments Unknown Sex and Gender Information Value Date Recorded Sex Assigned at Female 06/29/2022 11:48 AM CDT Legal Sex Female 10:10 PM SCIENCE TUTOR Gender Identity Female 06/29/2022 11:48 AM CDT Sexual Orientation Straight 06/29/2022 11 :48 AM CDT documented as of this encounter Plan of Treatment Upcoming Encounters Date Type Department Care Team (Late st Contact Info) Description 10/13/2024 1:00 PM SCIENCE TUTOR Procedure visit Department of Urology in [place], [place] [address] [place] [address] Mohini Larson M.D. [address] [place] [address] 11/30/2024 7:30 AM SCIENCE TUTOR Appointment Department of Radiology, [facility], in [place], [place] [address] [place] [address] Mohini Larson M.D. [address] [place] [address] 11/30/2024 3:45 PM SCIENCE TUTOR Office Visit Department of Urology in [place], [place] [address] [place] [phone] Mohini Ang, MPAS, P.A.-C. [address] [place] [address] documented as of this encounter Results * (ABNORMAL) Bacterial Culture, Aerobic + Susceptibility, Urine (09/22/2024 8:20 AM SCIENCE TUTOR) Urine Culture With urogenital microbiota, susceptibilities not performed per laboratory criteria. (A) 09/24/2024 1:35 PM SCIENCE TUTOR DTL Urine Culture PSEUDOMONAS AERUGINOSA 10,000-100,000 cfu/mL (A) 09/24/2024 1:35 PM SCIENCE TUTOR DTL Comment: Gentamicin should not be used for P. aeruginosa. There are no gentamicin breakpoints for P. aeruginosa. Urine (Urine, Midstream) 09/22/2024 8:20 AM SCIENCE TUTOR 09/22/2024 9:15 AM SCIENCE TUTOR Comment:Specimen Source Site : Urine Narrative Organism [...] OR DERABLES Final Result Performing Organization Address [facility]/ZIP Co de Phone Number [facility] [address] [place] [address], [facility] [address] [place] [address] * Urinalysis, with Microscopic: Urine, Midstream (09/22/2024 8:20 AM SCIENCE TUTOR) Source Urine, Urine, Midstream 09/22/2024 8:40 AM SCIENCE TUTOR DTL Color, U Yellow 09/22/2024 8:40 AM SCIENCE TUTOR DTL Clarity, U Clear 09/22/2024 8:40 AM SCIENCE TUTOR DTL Protein, U <4 <26 mg/dL 09/22/2024 9:28 AM SCIENCE TUTOR DTL Protein/Osmol ality <0.30 <0.42 ratio 09/22/2024 9:50 AM SCIENCE TUTOR DTL Predicted 24 HR Protein, U <225 <229 mg/24 h 09/22/2024 9:50 AM SCIENCE TUTOR DTL Predicted Range <910 mg/24 h 09/22/2024 9:50 AM SCIENCE TUTOR DTL Urine (Urine, Midstream) 09/22/2024 8:20 AM SCIENCE TUTOR 09/22/2024 8:40 AM SCIENCE TUTOR us Efrain Valadez M.D. LAB URINE ORDERABLES Final Re sult Performing Organization Address [facility]/ZIP Co de Phone Number [facility] [address] [place] [address], [facility] [address] [place] [address] * (ABNORMAL) Basic Metabolic Panel (09/22/2024 8:10 AM SCIENCE TUTOR) Potassium, S 4.3 3.6 - 5.2 mmol/L 09/22/2024 9:14 AM SCIENCE TUTOR DTL Sodium, S 142 135 - 145 mmol/L 09/22/2024 9:14 AM SCIENCE TUTOR DTL Chloride, S 108(H) 98 - 107 mmol/L 09/22/2024 9:14 AM SCIENCE TUTOR DTL Bicarbonate, S 23 22 - 29 mmol/L 09/22/2024 9:14 AM SCIENCE TUTOR DTL Anion Gap 11 7 - 15 09/22/2024 9:14 AM SCIENCE TUTOR DTL BUN (Blood Urea Nitrogen), S 16 6 - 21 mg/dL 09/22/2024 9:14 AM SCIENCE TUTOR DTL Creatinine 0.76 0.59 - 1.04 mg/dL 09/22/2024 9:14 AM SCIENCE TUTOR DTL Estimated GFR (eGFR) 85 >=60 mL/min/BSA 09/22/2024 9:14 AM SCIENCE TUTOR DTL Comment: Estimated GFR calculated using the 2020 CKD_EPI creatinine equation. Calcium, Total, S 9.2 8.8 - 10.2 mg/dL 09/22/2024 9:14 AM SCIENCE TUTOR DTL Glucose, S 94 70 - 140 mg/dL 09/22/2024 9:14 AM SCIENCE TUTOR DTL Blood (Blood, Venous) 09/22/2024 8:10 AM SCIENCE TUTOR 09/22/2024 8:50 AM SCIENCE TUTOR Efrain Valadez M.D. LAB BLOOD ADD-ON Final Result [facility] [address] [place] [address], [facility] DTL [facility] [address] [place] [address] documented in this encounter Visit Diagnoses Diagnosis Hydronephrosis- Primary documented in this encounter Care Teams Florist Designer Relationship Specialty Start Date End Date Elsewhere, Pcp PCP - General Internal Medicine 06/28/22 documented as of this encounter
--- NOTE | 2024-10-11 14:40 | CRLHL7_ITS ---
For Patients: As a result of the Century Cures Act, medical imaging exams and procedure reports are released immediately into your electronic medical record. You may view this report before your referring provider. If you have questions, please contact your health care provider. BILATERAL SCREENING MAMMOGRAM WITH COMPUTER-AIDED DETECTION AND TOMOSYNTHESIS TECHNIQUE: CC and MLO views were obtained. These mammographic images have been obtained using full-field digital technique. These mammographic images were interpreted with the benefit of computer-aided detection. Breast Tomosynthesis was used in this interpretation. COMPARISON FILM: 09/19/23, 09/17/22, 09/04/21. FINDINGS: The breasts are heterogeneously dense, which may obscure small masses IMPRESSION: There is no radiographic evidence for malignancy. ASSESSMENT: BI-RADS Category 1: Negative RECOMMENDATION: Routine screening mammogram in 1 year. A lay language report of this examination will be provided to the patient. Madhav Pop M.D. Diagnostic Radiologist [email or web address] Transcribed: 3:11 p.patrick nichole/Dictated by: Madhav Pop MD @ 10/12/2024 12:06:00 PM (Electronically Signed)
== END 2024-10-11 14:30 | disposition home or self-care (01) ==
PROVIDERS: PCP Internal Medicine; Visit Provider Obstetrics & Gynecology
DX: Z12.31 Encounter for screening mammogram for malignant neoplasm of breast (principal); R92.333 Mammographic heterogeneous density, bilateral breasts
CPT/HCPCS: 77063; 77067

== ENCOUNTER 2025-09-05 10:25 | Outpatient (CLI) | payer MEDICARE, BC, SELFPAY | END 2025-09-05 10:26 | disposition home or self-care (01) | LOC: NFLDREF 09-08 12:03 | PROVIDERS: PCP Internal Medicine; Referring Provider Internal Medicine; Visit Provider Internal Medicine | DX: M85.80 Other specified disorders of bone density and structure, unspecified site (principal); E78.5 Hyperlipidemia, unspecified; E03.9 Hypothyroidism, unspecified | CPT/HCPCS: 80061; 82306; 84443 ==

== ENCOUNTER 2025-09-19 10:33 | Outpatient (CLI) | payer MEDICARE, BC, SELFPAY ==
--- NOTE | 2025-09-19 10:45 | CRLHL7_ITS ---
For Patients: As a result of the Century Cures Act, medical imaging exams and procedure reports are released immediately into your electronic medical record. You may view this report before your referring provider. If you have questions, please contact your health care provider. CLINICAL HISTORY: history of urinary calculi/renal stones COMPARISON: Ultrasound 11/30/2024, CT 10/05/2024 TECHNIQUE: Zepeda scale and color Doppler images were acquired of the kidneys and urinary bladder. FINDINGS: Right extrarenal pelvis is similar to the prior studies. Normal color Doppler imaging of both kidneys. No evidence of a renal stone. The right kidney measures 10.3cm in length and the left kidney measures 11.6cm in length. The renal cortex appears of normal thickness. Prevoid bladder volume 150 cc. Postvoid bladder volume 14 cc. IMPRESSION: Similar appearance of the right renal pelvis which is felt to represent a normal extrarenal pelvis. No evidence of renal stone on the current exam. Dictated by Madhav Pop MD @ 09/19/2025 11:58:00 AM (Electronically Signed)
== END 2025-09-19 10:34 | disposition home or self-care (01) ==
PROVIDERS: PCP Internal Medicine; Visit Provider Internal Medicine
DX: Z87.442 Personal history of urinary calculi (principal)
CPT/HCPCS: 76770